=== PATIENT | female | born 1985 | race Asian ===

== ENCOUNTER 2020-07-06 08:41 | Outpatient (REF) | payer OTHER, SELFPAY ==
[2020-07-07 10:19] LABS: CT PCR NOT DETECTED (Not Detect.); NG PCR NOT DETECTED (Not Detect.)
[2020-07-07 13:49] LABS: BV Int Neg Control Negative (Negative); BV Int Pos Control Positive (Positive)
[2020-07-08 22:56] LABS: HPV mRNA E6/E7 rflx Not Detected (Not Detected)
== END 2020-07-06 08:42 | disposition home or self-care (01) ==
LOC: HO.LAB 08:41
PROVIDERS: Visit Provider Advanced Practice Midwife
DX: Z01.419 Encounter for gynecological examination (general) (routine) without abnormal findings (principal); R10.2 Pelvic and perineal pain; N93.9 Abnormal uterine and vaginal bleeding, unspecified; N76.0 Acute vaginitis; B96.89 Other specified bacterial agents as the cause of diseases classified elsewhere; Z11.8 Encounter for screening for other infectious and parasitic diseases; Z11.3 Encounter for screening for infections with a predominantly sexual mode of transmission
CPT/HCPCS: 87480; 87491; 87510; 87591; 87624; 87625; 87660; 88142

== ENCOUNTER 2020-08-19 16:30 | Outpatient (REF) | payer OTHER, SELFPAY | END 2020-08-19 16:31 | disposition home or self-care (01) | LOC: HO.LAB 16:30 | PROVIDERS: Visit Provider Internal Medicine | DX: Z20.828 Contact with and (suspected) exposure to other viral communicable diseases (principal) | CPT/HCPCS: C9803; U0003 ==

== ENCOUNTER 2020-09-28 08:49 | Outpatient (REF) | payer OTHER, SELFPAY ==
[2020-09-30 01:18] LABS: C. trachomatis RNA TMA NOT DETECTED (NOT DETECTED); N. gonorrhoeae RNA TMA NOT DETECTED (NOT DETECTED)
[2020-10-01 01:47] LABS: HPV mRNA E6/E7 rflx Not Detected (Not Detected)
== END 2020-09-28 08:50 | disposition home or self-care (01) ==
LOC: HO.LAB 08:49
PROVIDERS: Visit Provider Obstetrics & Gynecology
DX: Z01.419 Encounter for gynecological examination (general) (routine) without abnormal findings (principal); N63.0 Unspecified lump in unspecified breast; R10.2 Pelvic and perineal pain; Z30.09 Encounter for other general counseling and advice on contraception
CPT/HCPCS: 36415; 87491; 87591; 87624; 88142

== ENCOUNTER 2020-10-05 11:06 | Outpatient (REF) | payer OTHER, SELFPAY ==
--- NOTE | ~2020-10-05 | MM_ITS ---
EXAMINATION: MM DIAGNOSTIC DIGITAL BREAST TOMOSYNTHESIS, BILATERAL US DIAGNOSTIC ULTRASOUND BREAST, RIGHT CLINICAL INFORMATION: 34-year-old with palpable nodule right breast upper outer quadrant mid depth. No known family history breast cancer. No prior breast imaging. The lifetime risk of breast cancer based on the Tyrer-Cuzick Model is 8%. COMPARISON: None (current study represents initial baseline exam). TECHNIQUE: Digital breast tomosynthesis is performed in both the craniocaudal and mediolateral oblique views along with computer-aided detection (CAD). Synthesized 2D images are generated from the tomosynthesis. Ultrasound right breast is targeted to the area of clinical concern upper outer quadrant. Grayscale imaging and color Doppler are performed without and with harmonics. Patient is able to point to the area of concern at time of imaging. FINDINGS: There are scattered areas of fibroglandular density (ACR BI-RADS breast composition Category b). Breast tissue composition borders on heterogeneously dense. The left breast shows no mass or architectural abnormality. Neither breast shows abnormal calcifications. The axilla and skin contours are unremarkable. The right MLO tomography demonstrates a circumscribed nodule mid upper outer quadrant 1.0 cm size close to area of palpable concern. Ultrasound right breast demonstrates a group of 3 adjacent simple cysts 10:00 position 5 cm from nipple, largest 0.9 x 0.6 cm. The adjacent cysts measure 0.7 x 0.4 cm and 0.4 x 0.3 cm, respectively. There is increased through-transmission of sound. No associated color flow. No solid mass or architectural abnormality. Results are discussed with the patient at time of visit. MM/MM tomosynthesis diagnostic BI IMPRESSION: 1. No mammographic evidence of malignancy. 2. Group of three simple cysts right breast at area of palpable concern, largest 0.9 cm. ASSESSMENT: BI-RADS 2: Benign RECOMMENDATION: Routine annual mammography screening, beginning age 40, or earlier as clinical risk factors warrant. This patient's information was entered into a reminder system with a target due date for their next mammogram.
== END 2020-10-05 11:07 | disposition home or self-care (01) ==
LOC: HO.MAMMO 11:06
PROVIDERS: Visit Provider Obstetrics & Gynecology
DX: N63.11 Unspecified lump in the right breast, upper outer quadrant (principal)
CPT/HCPCS: 76642; 77062; 77066

== ENCOUNTER 2020-10-30 01:47 | Emergency (ER) | payer OTHER, SELFPAY ==
[2020-10-30 02:29] VITALS: BP 105/71; PULSE 78; RESP 16; TEMP 37.1; O2SAT 98; BMI 29.2
--- NOTE | 2020-10-30 02:47 | ED.GENADULT ---
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 She states she gets relief after using Vicks vapor rub. complaint: Bilateral buttock pain Related Data Previous Rx's Medication Instructions Recorded clonazepam 1 mg tablet 1 mg PO DAILY PRN 30 Days #30 tab 10/19/20 tramadol 50 mg tablet 50 mg PO BID PRN 30 Days #60 tab 10/26/20 Allergies Allergy/AdvReac Type Severity Reaction Status Date / Time codeine [CODEINE] Allergy Intermediate TACHYCARDIA Verified 09/28/20 09:00 acetaminophen Allergy Unknown tachycardia Verified 09/28/20 09:00 [Tylenol-Codeine #3] Review of Systems Review of Systems: Pertinent positives and negatives as stated in HPI 10 point review of systems is otherwise negative. [facility] Past Medical History Source: nursing notes reviewed Medical History History of asthma History of depression History of panic attacks Hx of anxiety disorder Surgical History Hx of section Family History Family History Maternal Aunt History of breast cancer Sister Stomach cancer Father No problems noted. Mother No problems noted. Family/Other FH: mental illness Social History Social History Alcohol intake: never Smoking Status: Never smoker Use of substances other than those prescribed or required for medical reasons: No Advance Directives: No Physical Exam Vital Signs: Vital Signs: Last Vital Signs Temp 98.7 F 10/30/20 02:29 Pulse 78 10/30/20 02:29 Resp 16 10/30/20 02:29 BP 105/71 10/30/20 02:29 Pulse Ox 98 10/30/20 02:29 Body Mass Index 29.2 VITAL SIGNS: Reviewed. GENERAL: Well developed, well nourished, in no acute distress. NOSE: Nares patent bilateral OROPHARYNX: no oral lesions noted, posterior pharynx clear NECK: Supple, no adenopathy LUNGS: Normal breath sounds. No adventitious sounds or accessory muscle use. SpO2<98> CARDIOVASCULAR: Regular rate and rhythm without noted murmurs ABDOMEN: Soft, non-tender, non-distended with bowel sounds. BUTTOCKS: {optical glass etcher-Sally} there is no evidence of swelling, induration, erythema, skin lesions NEUROLOGIC: Alert and oriented x 4. Course Course Course Narrative: This is a 34-year-old female with history and clinical presentation of unclear etiology, as patient has not been evaluated by her primary care provider in the past year for this presentation either. Low clinical suspicion for abscess, cellulitis, pilonidal cyst, sciatica. Will obtain basic labs and UA. On review of all investigations there are no acute finding. All results were discussed with patient at bedside and she was strongly encouraged to follow-up with her primary care provider for further outpatient evaluation. Medical Decision Making Lab Data Result diagrams: 10/30/20 03:13 10/30/20 03:13 Labs: Lab Results 10/30/20 10/30/20 10/30/20 Range/Units 03:13 03:13 03:13 WBC 5.6 (4.8-10.8) X10*3/uL RBC 4.21 (4.20-5.50) X10*6/uL Hgb 11.0 L (12.0-16.0) g/dl Hct 34.5 L (37-47) % MCV 81.9 (80-98) fL MCH 26.1 L (27.0-33.0) pg MCHC 31.9 (31.0-35.0) g/dl RDW 13.3 (11.0-16.0) % Plt Count 215 (160-400) X10*3/uL MPV 10.6 (9.4-12.3) fL Immature Gran % (Auto) 0.2 (0.0-0.4) % Neut % (Auto) 48.0 (45-73) % Lymph % (Auto) 40.5 H (20-40) % Dade % (Auto) 7.3 (2-11) % Eos % (Auto) 3.6 (0-4) % Baso % (Auto) 0.4 (0-2) % Lymph # (Auto) 2.3 (1.2-4.9) X10*3/uL Dade # (Auto) 0.4 (0.1-1.2) X10*3/uL Eos # (Auto) 0.2 (0.0-0.4) X10*3/uL Baso # (Auto) 0.0 (0.0-0.2) X10*3/uL Abs Immat Gran (auto) 0.01 (0.00-0.03) X10*3/uL Absolute Neuts (auto) 2.7 (2.0-8.3) X10*3/uL Absolute Nucleated RBC 0.000 (0.0-0.012) X10*3/uL Nucleated RBC % (auto) 0.0 (0.0-0.2) /100WBC Sodium 139 (135-145) mmol/L Potassium 3.9 (3.3-5.1) mmol/L Chloride 105 (96-108) mmol/L Carbon Dioxide 28 (22-29) mmol/L Anion Gap 10 L (12-20) BUN 11 (9-16) mg/dL Creatinine 0.65 (0.5-1.4) mg/dL Estim Creat Clear Calc 108.3 Estimated GFR > 60 Random Glucose 92 (60-115) mg/dL Calcium 8.8 (8.4-10.2) mg/dL Total Bilirubin 0.4 (0.0-1.0) mg/dL AST 13 (5-31) U/L ALT 7 (0-31) U/L Alkaline Phosphatase 74 (39-117) U/L Total Protein 6.5 (6.5-8.0) g/dL Albumin 4.0 (3.5-5.0) g/dL Urine Color YELLOW Urine Appearance CLEAR Urine pH 7.0 (5.0-8.0) Ur Specific [place] 1.020 (1.005-1.025) Urine Protein NEG (NEG-TRACE) MG/DL Urine Glucose (UA) NEG (NEG) MG/DL Urine Ketones NEG (NEG) MG/DL Urine Blood TRACE (NEG) Urine Nitrite NEG (NEG) Ur Leukocyte Esterase NEG (NEG) Urine RBC 0-2 (0) /HPF Urine WBC 0-2 (0-4) /HPF Ur Squamous Epith Cells 1+ /LPF Urine Bacteria TRACE /LPF Urine Mucus 1+ /LPF Urine Yeast TRACE /HPF Urine Test (NEGATIVE) 10/30/20 Range/Units 03:13 WBC (4.8-10.8) X10*3/uL RBC (4.20-5.50) X10*6/uL Hgb (12.0-16.0) g/dl Hct (37-47) % MCV (80-98) fL MCH (27.0-33.0) pg MCHC (31.0-35.0) g/dl RDW (11.0-16.0) % Plt Count (160-400) X10*3/uL MPV (9.4-12.3) fL Immature Gran % (Auto) (0.0-0.4) % Neut % (Auto) (45-73) % Lymph % (Auto) (20-40) % D[place] % (Auto) (2-11) % Eos % (Auto) (0-4) % Baso % (Auto) (0-2) % Lymph # (Auto) (1.2-4.9) X10*3/uL Dade # (Auto) (0.1-1.2) X10*3/uL Eos # (Auto) (0.0-0.4) X10*3/uL Baso # (Auto) (0.0-0.2) X10*3/uL Abs Immat Gran (auto) (0.00-0.03) X10*3/uL Absolute Neuts (auto) (2.0-8.3) X10*3/uL Absolute Nucleated RBC (0.0-0.012) X10*3/uL Nucleated RBC % (auto) (0.0-0.2) /100WBC Sodium (135-145) mmol/L Potassium (3.3-5.1) mmol/L Chloride (96-108) mmol/L Carbon Dioxide (22-29) mmol/L Anion Gap (12-20) BUN (9-16) mg/dL Creatinine (0.5-1.4) mg/dL Estim Creat Clear Calc Estimated GFR Random Glucose (60-115) mg/dL Calcium (8.4-10.2) mg/dL Total Bilirubin (0.0-1.0) mg/dL AST (5-31) U/L ALT (0-31) U/L Alkaline Phosphatase (39-117) U/L Total Protein (6.5-8.0) g/dL Albumin (3.5-5.0) g/dL Urine Color Urine Appearance Urine pH (5.0-8.0) Ur Specific [place] (1.005-1.025) Urine Protein (NEG-TRACE) MG/DL Urine Glucose (UA) (NEG) MG/DL Urine Ketones (NEG) MG/DL Urine Blood (NEG) Urine Nitrite (NEG) Ur Leukocyte Esterase (NEG) Urine RBC (0) /HPF Urine WBC (0-4) /HPF Ur Squamous Epith Cells /LPF Urine Bacteria /LPF Urine Mucus /LPF Urine Yeast /HPF Urine Test NEGATIVE (NEGATIVE) Discharge Plan Discharge Clinical Impression: Chronic gluteal pain Patient Disposition: Home, Self-Care Instructions: Musculoskeletal Pain (ED) Additional Instructions: 1. Resuma todos los medicamentos caseros seg?n lo prescrito. 2. Utilice Tylenol / ibuprofeno de venta reilly seg?n sea necesario para controlar el dolor y irina se indica en el empaque exterior. 3. Gregoria un seguimiento con mena proveedor de atenci?n primaria para anthony reevaluaci?n y un tratamiento ambulatorio adicional de joel s?ntomas. No dude en volver al servicio de urgencias si experimenta un empeoramiento malvin de joel s?ntomas, especialmente si est? asociado con fiebre o escalofr?os. Prescriptions: No Action clonazepam 1 mg tablet 1 mg PO DAILY PRN (Reason: anxiety) 30 Days Qty: 30 RF: 0 tramadol 50 mg tablet 50 mg PO BID PRN (Reason: pain) 30 Days Qty: 60 RF: 0 Referrals: Sara Stover MD [Primary Care Provider] - 2 days (Re-evaluation outpatient management for chronic bilateral gluteal pain for 1 year and basic labs/urinalysis are negative in the emergency department.) Print Language: Turkish
[2020-10-30 03:21] LABS: MANUAL DIFF FLAG NO
[2020-10-30 03:22] LABS: Basophils Percent Auto 0.4 % (0-2); Eosinophils Absolute Auto 0.2 X10*3/uL (0.0-0.4); Eosinophils Percent Auto 3.6 % (0-4); Hematocrit 34.5 % (37-47); Imm Gran Abs Auto 0.01 X10*3/uL (0.00-0.03); Imm Gran Pct Auto 0.2 % (0.0-0.4); Lymphocytes Absolute Auto 2.3 X10*3/uL (1.2-4.9); Lymphocytes Percent Auto 40.5 % (20-40); Mean Corpuscular HGB Conc 31.9 g/dl (31.0-35.0); Mean Corpuscular Hemoglobin 26.1 pg (27.0-33.0); Mean Corpuscular Volume 81.9 fL (80-98); Mean Platelet Volume 10.6 fL (9.4-12.3); Monocytes Absolute Auto 0.4 X10*3/uL (0.1-1.2); Monocytes Percent Auto 7.3 % (2-11); Neutrophils Absolute Auto 2.7 X10*3/uL (2.0-8.3); Platelet Count 215 X10*3/uL (160-400); Red Blood Count 4.21 X10*6/uL (4.20-5.50); Red Cell Distribution Width 13.3 % (11.0-16.0); White Blood Count 5.6 X10*3/uL (4.8-10.8)
[2020-10-30 03:26] LABS: Glucose Urine UA NEG (NEG); Leukocyte Esterase Urine NEG (NEG); Nitrite Urine NEG (NEG); Urine Blood TRACE (NEG); Urine Ketones NEG (NEG); Urine Protein NEG (NEG-TRACE)
[2020-10-30 03:27] LABS: Appearance Urine CLEAR; Color Urine YELLOW
[2020-10-30 03:28] LABS: UPreg QC Valid YES; Urine Pregnancy NEGATIVE (NEGATIVE)
--- NOTE | 2020-10-30 03:40 | PC.NURSE ---
PT ASSESSED BY DR MATTHEW. PLAN IS FOR LABS/URINE AND DC IF RESULTS WNL. PT AGREEABLE TO PLAN.
[2020-10-30 03:41] LABS: Bacteria Urine TRACE /LPF; Mucus Urine 1+ /LPF; RBC Urine 0-2 /HPF (0); Squamous Epithelial Cell Urine 1+ /LPF; WBC Urine 0-2 /HPF (0-4)
[2020-10-30 03:48] LABS: Alanine Aminotransferase 7 U/L (0-31); Alkaline Phosphatase 74 U/L (39-117); Anion Gap 10 (12-20); Aspartate Amino Transferase 13 U/L (5-31); Bilirubin Total 0.4 mg/dL (0.0-1.0); Blood Urea Nitrogen 11 mg/dL (9-16); Calcium 8.8 mg/dL (8.4-10.2); Carbon Dioxide 28 mmol/L (22-29); Chloride 105 mmol/L (96-108); Creatinine Clr Calc Pharmacy 108.3; Estimated Glomerular Filt Rate > 60; Glucose Random 92 mg/dL (60-115); Potassium 3.9 mmol/L (3.3-5.1); Sodium 139 mmol/L (135-145); Total Protein 6.5 g/dL (6.5-8.0)
[2020-10-30 04:00] VITALS: BP 130/68; PULSE 72; RESP 16; O2SAT 98
== END 2020-10-30 04:36 | disposition home or self-care (01) ==
PROVIDERS: Emergency Provider Student in an Organized Health Care Education/Training Program; PCP Internal Medicine
DX: M79.18 Myalgia, other site (principal)
CPT/HCPCS: 36415; 80053; 81001; 81025; 85025; 99283; 99284

== ENCOUNTER 2021-06-16 18:25 | Outpatient (REF) | payer OTHER, SELFPAY ==
[2021-06-16 18:50] LABS: Amphetamine Screen Urine Not Detected (Not Detect); Barbiturates, Urine Not Detected (Not Detect); Benzodiazepines Screen Urine POSITIVE (Not Detect); Cannabinoid Screen Urine Not Detected (Not Detect); Cocaine Screen Urine Not Detected (Not Detect); Fentanyl, urine Not Detected (Not Detect); Opiate Screen Urine Not Detected (Not Detect); Phencyclidine Screen Urine Not Detected (Not Detect)
== END 2021-06-16 18:26 | disposition home or self-care (01) ==
LOC: HO.LNP 18:25
PROVIDERS: Visit Provider Internal Medicine
DX: F41.9 Anxiety disorder, unspecified (principal); R19.05 Periumbilic swelling, mass or lump; Z23 Encounter for immunization
CPT/HCPCS: 80307

== ENCOUNTER 2021-07-21 14:41 | Outpatient (REF) | payer OTHER, SELFPAY ==
--- NOTE | ~2021-07-21 | US_ITS ---
EXAMINATION: US ABDOMEN LIMITED CLINICAL INFORMATION: Periumbilical swelling, mass or lump. COMPARISON: CT abdomen with intravenous contrast dated 01/31/2019. Renals only ultrasound dated 01/31/2018. Ultrasound abdomen complete dated 12/27/2016. TECHNIQUE: Real-time imaging of the periumbilical area. FINDINGS: Limited imaging through the periumbilical area reveals no mass, hernia, fluid collection or abnormal mass effect. US/US abdomen limited IMPRESSION: Unremarkable ultrasound abdomen limited. No abnormality seen in the periumbilical region.
== END 2021-07-21 14:42 | disposition home or self-care (01) ==
LOC: HO.US 14:41
PROVIDERS: PCP Internal Medicine; Visit Provider Internal Medicine
DX: R19.05 Periumbilic swelling, mass or lump (principal)
CPT/HCPCS: 76705

== ENCOUNTER 2021-07-26 08:41 | Outpatient (REF) | payer OTHER, SELFPAY ==
[2021-07-26 14:16] LABS: CT PCR NOT DETECTED (Not Detect.); NG PCR NOT DETECTED (Not Detect.)
[2021-07-27 10:28] LABS: BV Int Neg Control Negative (Negative); BV Int Pos Control Positive (Positive)
== END 2021-07-26 08:42 | disposition home or self-care (01) ==
LOC: HO.LAB 08:41
PROVIDERS: PCP Internal Medicine; Visit Provider Obstetrics & Gynecology
DX: Z11.3 Encounter for screening for infections with a predominantly sexual mode of transmission (principal); N76.0 Acute vaginitis
CPT/HCPCS: 87480; 87491; 87510; 87591; 87660; 99212

== ENCOUNTER 2021-09-25 02:43 | Emergency (ER) | payer OTHER, SELFPAY ==
[2021-09-25 02:46] VITALS: BP 113/75; PULSE 73; RESP 16; TEMP 36.6; O2SAT 99; BMI 34.0
[2021-09-25 04:11] VITALS: BP 97/49; PULSE 72; RESP 16; TEMP 36.6; O2SAT 98
[2021-09-25 05:08] LABS: COVID-19 Test Negative (Negative); IDNOW Serial# 9DD0AD1C
[2021-09-25] MEDS: Amoxicillin 500 MG CAPSULE 1000 MG PO (06:41)
[2021-09-25] MEDS: predniSONE 20 MG TABLET 60 MG PO (06:41)
--- NOTE | 2021-09-25 06:46 | ED_ITS ---
HPI - General Adult General Chief complaint: General Medical Stated complaint: sore throat diff breathing Time Seen by Provider: 09/25/21 05:50 Source: patient and family () Mode of arrival: ambulatory Limitations: language barrier (Dominican speaking only) History of Present Illness HPI narrative: 35-year-old female who presents emergency department for evaluation of chest pain, sore throat, cough x4 days. The patient states that she has a sore throat, the pain is a constant, sharp pain which is worse with swallowing, she can not swallow fluids, food and her secretions. He states the pain is moderate to severe in intensity. She states that she also has a cough which is occasionally productive of yellow phlegm. She states that she is having chest pain which is worse with coughing worse with breathing. She has mild shortness of breath and mild dyspnea on exertion. She denied fever, chills, nausea. She states that occasionally she vomits after coughing. Patient states that she is had a COVID infection twice. Her 1st infection was in November of 2020 under 2nd 1 was 08/16/2021. She has not been vaccinated for COVID-19. Related Data Previous Rx's Medication Instructions Recorded cyclobenzaprine 10 mg tablet 10 mg PO BEDTIME PRN 30 Days #30 11/04/20 tab metronidazole 500 mg tablet 500 mg PO BID 7 Days #14 tab 07/26/21 terconazole 0.8 % vaginal cream 1 appful VAGINAL BEDTIME 3 Days 07/26/21 #20 g clonazepam 1 mg tablet 1 mg PO DAILY PRN 30 Days #30 tab 08/30/21 tramadol 50 mg tablet 50 mg PO BID PRN 30 Days #60 tab 08/30/21 albuterol sulfate 90 mcg/actuation 2 puff INHALATION Q4-6H PRN #6.7 09/25/21 g aerosol inhaler (ProAir HFA) amoxicillin 500 mg capsule 1,000 mg PO BID 10 Days #40 cap 09/25/21 prednisone 20 mg tablet 60 mg PO DAILY 5 Days #15 tab 09/25/21 Allergies Allergy/AdvReac Type Severity Reaction Status Date / Time acetaminophen Allergy Intermediate tachycardia Verified 06/16/21 16:27 [Tylenol-Codeine #3] codeine [CODEINE] Allergy Intermediate TACHYCARDIA Verified 06/16/21 16:27 Review of Systems Dedrick 4l Review of Systems: Yes all other systems are reviewed and Verdana 4d are negative [facility] Past Medical History Medical History Anxiety COVID-19 History of asthma History of depression History of panic attacks Hx of anxiety disorder Mild recurrent major depression Periumbilical mass Polyarthralgia Surgical History Hx of section Family History Family History Maternal Aunt History of breast cancer Sister Stomach cancer Father No problems noted. Mother No problems noted. Family/Other FH: mental illness Social History Social History Housing: Apartment Alcohol intake: current Alcohol intake frequency: a few times a week Alcohol type: beer Patient Tobacco Use Status: Former Tobacco user Tobacco use type: Cigarette e-Cigarette/Vaping Use: Never Used Second Hand Smoke Exposure: No Advance Directives: No Advance Directives Information Provided: Yes Patient : No service: No Current occupational status: employed Current occupational exposures/hazards: No Physical Exam Verdana 4l Vital Signs: Verdana 4d Verdana 4d Vital Signs: Verdana 4d Verdana 4Bd Last Vital Signs Verdana 4d Dominatrix New 4d Dominatrix New 4d Temp 97.9 F 09/25/21 04:11 Dominatrix New 4d Pulse 72 09/25/21 04:11 Dominatrix New 4d Resp 16 09/25/21 04:11 BP 97/49 L 09/25/21 04:11 Pulse Ox 98 09/25/21 04:11 BMI result Body Mass Index 34.0 Const: General: cooperative and no acute distress Orientation/consciousness: oriented to person and oriented to place Limitations: no limitations HENMT: Head: Yes normal to inspection, Yes normocephalic and Yes atraumatic Ears: external ears normal General nose exam: Normal external nose present Face and sinus: Yes normal facial exam Mouth: Normal oral and palatal mucosa present Throat: Yes tonsils normal, Yes uvula midline and Yes other (Posterior exudate with erythema) Eyes: General: appearance normal, both eyes and all related structures Pupils: Equal, round and reactive pupils present Neck: Neck: Yes normal visual inspection, Yes no lymphadenopathy, Yes trachea midline and Yes supple Chest: Chest palpation & inspection: normal inspection of the chest and normal palpation of entire chest wall Resp: Effort & Inspection: normal respiratory effort and able to speak in complete sentences Auscultation: clear to auscultation bilaterally Cardio: Rate: regular rate Rhythm: regular rhythm Heart sounds: S1 normal heart sound present, S2 normal heart sound present and no murmurs GI: Inspection: Yes normal to inspection Palpation (GI): Soft to palpation, nontender and no guarding Auscultation: normal bowel sounds : General: Yes no CVA tenderness Back/Spine/Pelvis: Back: no CVA tenderness Skin: General skin exam: no rashes or lesions noted Neuro: General: oriented to person and oriented to place Cranial nerves: Yes CN's II-XII intact bilaterally and Yes Equal, round and reactive pupils present Cognition (Neuro): normal cognition Motor exam (neuro): 5/5 motor strength present throughout Extrem: General: Yes normal to inspection Psych: Appearance: grossly normal Speech and movement: Normal speech and movement present Affect: normal affect Attitude: cooperative Thought process: Normal thought process present Thought content: Normal thought content present Course Course Course Narrative: 35-year-old female who presents emergency department for evaluation of 4 days of cough, sore throat, chest pain, mild dyspnea on exertion and shortness of breath. Initial vital signs were normal. Physical examination did reveal posterior exudates and erythema . My impression is the patient has acute pharyngitis with bronchitis. She was started on amoxicillin 1000 mg twice a day for 10 days, prednisone 60 mg once a day for 5 days and albuterol inhaler 2 puffs every 4 hours as needed for pain. She was given printed and verbal instructions and discharged home. Medical Decision Making Lab Data Labs: Lab Results 09/25/21 Range/Units Unknown COVID-19 (BRYN) Negative (Negative) COVID-19 Clin Com See Note Discharge Plan Discharge Clinical Impression: Bronchitis Pharyngitis Qualifiers: Pharyngitis/tonsillitis etiology: other specified organisms Qualified Code(s): J02.8 - Acute pharyngitis due to other specified organisms Patient Disposition: Home, Self-Care Instructions: Pharyngitis (ED), Acute Bronchitis (ED) Additional Instructions: Take amoxicillin 1000 mg twice a day for 10 days. This would treat bronchitis and a throat infection Take prednisone 20 mg pills, 3 pills once a day for 5 days. This is a strong anti-inflammatory pain medication and should reduce the inflammation in your breathing tubes and help with your chest pain and throat pain. While taking prednisone do not take any other [id number] anti-inflammatory medications such as Motrin, Advil, ibuprofen, naproxen orally. Take Tylenol (acetaminophen) 500 mg pills, 2 pills every 4 to 6 hours as needed for pain. Use the albuterol inhaler, 2 puffs every 4 hours while awake for 1 week, that should help reduce your cough your chest pain Follow-up with your doctor in 2 days. Please return to the emergency department if your symptoms get worse or if you develop any symptoms that are concerning to you. Prescriptions: New amoxicillin 500 mg capsule 1,000 mg PO BID 10 Days Qty: 40 0RF prednisone 20 mg tablet 60 mg PO DAILY 5 Days Qty: 15 0RF albuterol sulfate [ProAir HFA] 90 mcg/actuation HFA aerosol inhaler 2 puff inhalation Q4-6H PRN (Reason: shortness of breath or wheezing) Qty: 6.7 0RF No Action clonazepam 1 mg tablet 1 mg PO DAILY PRN (Reason: anxiety) 30 Days Qty: 30 0RF tramadol 50 mg tablet 50 mg PO BID PRN (Reason: pain) 30 Days Qty: 60 0RF cyclobenzaprine 10 mg tablet 10 mg PO BEDTIME PRN (Reason: muscle spasm) 30 Days Qty: 30 3RF terconazole 0.8 % cream 1 appful vaginal BEDTIME 3 Days Qty: 20 0RF metronidazole 500 mg tablet 500 mg PO BID 7 Days Qty: 14 0RF Interventions: ED Discharge Assessment Last Done: 09/25/21 06:42 Discharge Date/Time: 09/25/21 06:42
== END 2021-09-25 06:42 | disposition home or self-care (01) ==
PROVIDERS: Emergency Provider Emergency Medicine Emergency Medical Services; PCP Internal Medicine
DX: J40 Bronchitis, not specified as acute or chronic (principal); J02.8 Acute pharyngitis due to other specified organisms; Z20.822 Contact with and (suspected) exposure to COVID-19
CPT/HCPCS: 87635; 99283

== ENCOUNTER 2022-05-12 11:41 | Outpatient (REF) | payer OTHER, SELFPAY ==
--- NOTE | ~2022-05-12 | XR_ITS ---
EXAMINATION: XR ABDOMEN KUB CLINICAL INDICATION: Back pain COMPARISON: None TECHNIQUE: AP view of the abdomen. FINDINGS: The bowel gas pattern is normal. There is no free air. No calcifications. There is mild curvature of the lower lumbar spine to the left. Bony structures are otherwise unremarkable. XR/XR KUB IMPRESSION: Unremarkable examination.
[2022-05-12 12:18] LABS: MANUAL DIFF FLAG NO
[2022-05-12 12:55] LABS: Basophils Percent Auto 0.2 % (0-2); Eosinophils Absolute Auto 0.2 X10*3/uL (0.0-0.4); Eosinophils Percent Auto 4.7 % (0-4); Hemoglobin 12.1 g/dl (12.0-16.0); Imm Gran Abs Auto 0.01 X10*3/uL (0.00-0.03); Imm Gran Pct Auto 0.2 % (0.0-0.4); Lymphocytes Absolute Auto 1.8 X10*3/uL (1.2-4.9); Lymphocytes Percent Auto 34.2 % (20-40); Mean Corpuscular HGB Conc 31.8 g/dl (31.0-35.0); Mean Corpuscular Hemoglobin 26.1 pg (27.0-33.0); Mean Corpuscular Volume 81.9 fL (80.0-98.0); Mean Platelet Volume 10.5 fL (9.4-12.3); Monocytes Absolute Auto 0.3 X10*3/uL (0.1-1.2); Monocytes Percent Auto 5.6 % (2-11); Neutrophils Absolute Auto 2.8 x10*3/uL (2.0-8.3); Neutrophils Percent Auto 55.1 % (45-73); Platelet Count 253 X10*3/uL (160-400); Red Blood Count 4.64 X10*6/uL (4.20-5.50); Red Cell Distribution Width 13.6 % (11.0-16.0); White Blood Count 5.1 X10*3/uL (4.8-10.8)
[2022-05-12 13:20] LABS: Alanine Aminotransferase 9 U/L (0-31); Albumin Level 4.2 g/dL (3.5-5.0); Alkaline Phosphatase 68 U/L (39-117); Anion Gap 15 (12-20); Aspartate Amino Transferase 15 U/L (5-31); Bilirubin Total 0.8 mg/dL (0.0-1.0); Blood Urea Nitrogen 11 mg/dL (9-16); Calcium 9.3 mg/dL (8.4-10.2); Carbon Dioxide 22 mmol/L (22-29); Chloride 107 mmol/L (96-108); Estimated Glomerular Filt Rate > 60; Glucose Random 84 mg/dL (60-115); Potassium 3.9 mmol/L (3.3-5.1); Sodium 140 mmol/L (135-145)
== END 2022-05-12 11:42 | disposition home or self-care (01) ==
LOC: HO.LAB 11:41
PROVIDERS: PCP Internal Medicine; Visit Provider Internal Medicine
DX: M25.50 Pain in unspecified joint (principal); M54.9 Dorsalgia, unspecified
CPT/HCPCS: 36415; 74018; 80053; 85025

== ENCOUNTER 2022-06-13 15:43 | Outpatient (REF) | payer OTHER, SELFPAY ==
[2022-06-14 05:26] LABS: CT PCR NOT DETECTED (Not Detect.); NG PCR NOT DETECTED (Not Detect.)
[2022-06-14 12:25] LABS: BV Int Neg Control Negative (Negative); BV Int Pos Control Positive (Positive)
== END 2022-06-13 15:44 | disposition home or self-care (01) ==
LOC: HO.LNP 15:43
PROVIDERS: Visit Provider Obstetrics & Gynecology
DX: Z01.419 Encounter for gynecological examination (general) (routine) without abnormal findings (principal)
CPT/HCPCS: 87086; 87480; 87491; 87510; 87591; 87660

== ENCOUNTER 2022-06-21 13:40 | Outpatient (REF) | payer OTHER, SELFPAY ==
--- NOTE | ~2022-06-21 | US_ITS ---
EXAMINATION: MM DIAGNOSTIC DIGITAL BREAST TOMOSYNTHESIS, BILATERAL US DIAGNOSTIC ULTRASOUND BREAST, RIGHT CLINICAL INFORMATION: Palpable concern upper outer right breast noted at routine clinical exam. Prior history fibrocystic changes. No known family history breast cancer. Patient age 36. The lifetime risk of breast cancer based on the Tyrer-Cuzick Model is 8%. COMPARISON: Mammography: 10/05/2020 (baseline), ultrasound right breast 10/05/2020. TECHNIQUE: Digital breast tomosynthesis is performed in both the craniocaudal and mediolateral oblique views along with computer-aided detection (CAD). Synthesized 2D images are generated from the tomosynthesis. Ultrasound right breast is targeted to the outer quadrant as well as the upper inner quadrant using grayscale imaging and color Doppler without and with harmonics. FINDINGS: The breasts are heterogeneously dense, which may obscure small masses (ACR BI-RADS breast composition Category c). Breast tissue composition borders on average fibroglandular. Parenchymal pattern is similar to prior exam. There is no interval significant mass or architectural abnormality or developing density. Circumscribed nodule central upper breast on MLO view around 1 cm is stable on tomography. No abnormal calcifications. The axilla and skin contours are unremarkable. Ultrasound demonstrates numerous simple cysts, at least 10 small cysts in the outer right breast, largest measuring 0.9 cm. There is also a 0.8 cm cyst at 1:00 position anterior to mid breast. The cysts are circumscribed, anechoic, and show increased through-transmission of sound. No color flow. No solid mass or architectural abnormality or focal duct ectasia. Results are discussed with the patient at time of visit, using an hourly sign language interpreter. US/US breast RT limited IMPRESSION: 1. No mammographic evidence of malignancy. No significant change from prior baseline exam 2020. 2. Multiple simple cysts measuring up to 0.9 cm. ASSESSMENT: BI-RADS 2: Benign RECOMMENDATION: Routine annual mammography screening, beginning age 40, or earlier as clinical risk factors warrant. This patient's information was entered into a reminder system with a target due date for their next mammogram.
== END 2022-06-21 13:41 | disposition home or self-care (01) ==
LOC: HO.MAMMO 13:40
PROVIDERS: PCP Internal Medicine; Visit Provider Obstetrics & Gynecology
DX: N63.11 Unspecified lump in the right breast, upper outer quadrant (principal)
CPT/HCPCS: 76642; 77062; 77066

== ENCOUNTER → 2022-07-21 14:41 | Outpatient (BNVA) | payer OTHER, SELFPAY | PROVIDERS: PCP Internal Medicine; Referring Provider Internal Medicine; Visit Provider Surgery | DX: N60.11 Diffuse cystic mastopathy of right breast (principal) | CPT/HCPCS: 99202 ==

== ENCOUNTER 2022-09-08 16:01 | Emergency (ER) | payer OTHER, SELFPAY ==
--- NOTE | ~2022-09-08 | XR_ITS ---
EXAMINATION: XR CHEST CLINICAL INFORMATION: dizziness and shortness of breath COMPARISON: 09/11/2018 TECHNIQUE: 2 views of the chest were obtained. FINDINGS: No significant abnormality is noted involving the heart, lungs, mediastinum or bony. Some calcification may be present in the supraspinatus tendon on the right. XR/XR chest 2V IMPRESSION: No acute intrathoracic disease.
--- NOTE | ~2022-09-08 | CT_ITS ---
EXAMINATION: CT HEAD WITHOUT CONTRAST CLINICAL INFORMATION: Dizziness, headache COMPARISON: None TECHNIQUE: Contiguous axial imaging was performed from the skull base to vertex without intravenous administration of contrast. This CT examination was performed using dose optimization techniques as appropriate, variously including the following: *Automated exposure control *Adjustment of mA and/or kV according to patient size (this includes techniques or standardized protocols for targeted exams where dose is matched to indication/reason for exam; i.e. extremities or head) *Use of iterative reconstruction technique DLP: 588 mGy-cm FINDINGS: There is no evidence of acute intracranial hemorrhage or territorial infarction. No abnormal mass effect or midline shift is seen. [place] to white matter differentiation is well preserved. No extra-axial fluid collections are identified. The ventricles are normal in size. No abnormal attenuation in the brain parenchyma. No acute calvarial fracture.. Paranasal sinuses and mastoid air cells are well-aerated. CT/CT head/brain wo IV con IMPRESSION: No CT evidence of acute intracranial process.
--- NOTE | 2022-09-08 15:00 | ECG_ITS ---
Test Reason : CHEST PAIN Blood Pressure : / mmHG Vent. Rate : 066 BPM Atrial Rate : 066 BPM P-R Int : 152 ms QRS Dur : 092 ms QT Int : 390 ms P-R-T Axes : 057 043 034 degrees QTc Int : 408 ms Normal sinus rhythm Normal ECG When compared with ECG of 11-SEP-2018 04:54, No significant change was found Referred By: Sara Gonzalez Electronically Signed By:DANIELA LOPEZ MD
[2022-09-08 16:31] VITALS: BP 114/65; PULSE 70; RESP 16; TEMP 36; O2SAT 100; BMI 28.9
--- NOTE | 2022-09-08 16:32 | ED_ITS ---
HPI - General Adult General Chief complaint: Chest Pain <SEBAS Braden - Last Filed: 09/08/22 16:40> Stated complaint: Chest Pain/ Dizziness <SEBAS Braden - Last Filed: 09/08/22 16:40> Time Seen by Provider: 09/08/22 18:02 <SEBAS Braden - Last Filed: 09/08/22 16:40> Source: patient <Lui Day MD - Last Filed: 09/08/22 20:13> Limitations: language barrier ( Air Conditioning Mechanic used) <Lui Day MD - Last Filed: 20:13> History of Present Illness HPI narrative: 36-year-old female who complains that since , she has had pain in her chest, on both sides, with radiation to her left arm, some numbness in h er left arm, also feeling like her head is heavy when she tries to lift it off of the gurney. The patient denies any headache. She denies any visual changes. She does feel short of breath at times. She denies exertional chest pain. She denies any nausea or sweats. She denies abdominal pain. She has not had any pain or swelling in her extremities. She does take clonazepam typically twice daily for anxiety. She also has a history of depression, anxiety. <Lui Day MD - Last Filed: 09/08/22 20:13> Related Data Home medications: Previous Rx's Medication Instructions Recorded terconazole 0.8 % vaginal cream 1 appful vaginal BEDTIME 3 days 06/13/22 #20 grams bupropion HCl 150 mg 24 hr tablet, 150 mg PO QAM 90 days #90 tabs 08/12/22 extended release tramadol 50 mg tablet 50 mg PO BID PRN pain 30 days #60 08/12/22 tabs meclizine 25 mg tablet 25 mg PO BID PRN dizziness 7 days 08/23/22 #14 tabs clonazepam 1 mg tablet 1 mg PO BID PRN anxiety 30 days 08/29/22 #60 tabs baclofen 10 mg tablet 10 mg PO TID #20 tabs 09/08/22 clonazepam 1 mg tablet 1 mg PO TID #21 tabs 09/08/22 ibuprofen 600 mg tablet 600 mg PO Q6H PRN pain #30 tabs 09/08/22 <SEBAS Braden - Last Filed: 09/08/22 16:40> Allergies/adverse reactions: Allergies Allergy/AdvReac Type Severity Reaction Status Date / Time acetaminophen Allergy Intermediate tachycardia Verified 09/08/22 16:30 [Tylenol-Codeine #3] codeine [CODEINE] Allergy Intermediate TACHYCARDIA Verified 09/08/22 16:30 <SEBAS Braden - Last Filed: 09/08/22 16:40> Review of Systems Review of Systems: As per HPI <Lui Day MD - Last Filed: 09/08/22 20:13> [facility] Past Medical History Medical History: Medical History (Updated 09/08/22 @ 20:09 by Lui Day MD) Anxiety Blurry vision COVID-19 Family history of gastric cancer Fibrocystic breast History of asthma History of depression History of panic attacks Hx of anxiety disorder Mild recurrent major depression Periumbilical mass Physical exam Polyarthralgia <SEBAS Braden - Last Filed: 09/08/22 16:40> Surgical History: Surgical History Hx of section Periumbilical hernia <SEBAS Braden - Last Filed: 09/08/22 16:40> Family History Family History: Family History Maternal Aunt History of breast cancer Sister Stomach cancer, Onset Age: 34 Father No problems noted. Mother No problems noted. Family/Other FH: mental illness <SEBAS Braden - Last Filed: 09/08/22 16:40> Social History Social History: Social History Housing: Apartment Alcohol intake: current Alcohol intake frequency: holidays/special occasions only Alcohol type: beer Patient Tobacco Use Status: Former Tobacco user Tobacco use type: Cigarette Smoked in Last 30 Days: No e-Cigarette/Vaping Use: Never Used Second Hand Smoke Exposure: No Use of substances other than those prescribed or required for medical reasons: No Advance Directives: No Advance Directives Information Provided: No service: No Current occupational status: employed Current occupational exposures/hazards: No Cognitive needs: No Hearing needs: No Vision needs: No <SEBAS Braden - Last Filed: 09/08/22 16:40> Physical Exam ED Vital Signs: Vital Signs - 24 hr 09/08/22 16:31 09/08/22 18:03 09/08/22 20:00 Temperature 96.8 F 98.5 F 98.1 F Pulse Rate 70 59 67 Respiratory Rate 16 16 21 H Blood Pressure 114/65 110/64 115/73 Pulse Oximetry 100 100 98 Oxygen Delivery Method Room Air Room Air Room Air BMI result Body Mass Index 28.9 <SEBAS Braden - Last Filed: 09/08/22 16:40> Vital Signs - 24 hr 09/08/22 16:31 09/08/22 18:03 09/08/22 20:00 Temperature 96.8 F 98.5 F 98.1 F Pulse Rate 70 59 67 Respiratory Rate 16 16 21 H Blood Pressure 114/65 110/64 115/73 Pulse Oximetry 100 100 98 Oxygen Delivery Method Room Air Room Air Room Air BMI result Body Mass Index 28.9 <Lui Day MD - Last Filed: 09/08/22 20:13> Const General: no acute distress <Lui Day MD - Last Filed: 09/08/22 20:13> Orientation/consciousness: patient oriented x3 <Lui Day MD - Last Filed: 09/08/22 20:13> HENMT Head: Yes normal to inspection <Lui Day MD - Last Filed: 09/08/22 20:13> General nose exam: Normal external nose present <Lui Day MD - Last Filed: 09/08/22 20:13> Mouth: moist mucous membranes <Lui Day MD - Last Filed: 09/08/22 20:13> Throat: Yes posterior oropharynx normal, Yes tonsils normal and Yes uvula midline <Lui Day MD - Last Filed: 09/08/22 20:13> Eyes Eyelids: Yes eyelids normal <Lui Day MD - Last Filed: 09/08/22 20:13> Conjunctivae: conjunctivae normal <Lui Day MD - Last Filed: 09/08/22 20:13> Pupils: Equal, round and reactive pupils present <Lui Day MD - Last Filed: 09/08/22 20:13> Neck Neck: Yes supple <Lui Day MD - Last Filed: 09/08/22 20:13> Resp Effort & Inspection: normal respiratory effort <Lui Day MD - Last Filed: 09/08/22 20:13> Auscultation: clear to auscultation bilaterally <Lui Day MD - Last Filed: 09/08/22 20:13> Cardio Rate: regular rate <Lui Day MD - Last Filed: 09/08/22 20:13> Rhythm: regular rhythm <Lui Day MD - Last Filed: 09/08/22 20:13> Heart sounds: S1 normal heart sound present, S2 normal heart sound present, no gallops, no murmurs and no rubs <Lui Day MD - Last Filed: 09/08/22 20:13> GI Inspection: No distended <Lui Day MD - Last Filed: 09/08/22 20:13> Palpation (GI): Soft to palpation and nontender <Lui Day MD - Last Filed: 09/08/22 20:13> Auscultation: normal bowel sounds <Lui Day MD - Last Filed: 09/08/22 20:13> Skin General skin exam: other (Warm and dry) <Lui Day MD - Last Filed: 09/08/22 20:13> Neuro General: patient oriented x3 and CN's II-XI intact bilaterally <Lui Day MD - Last Filed: 09/08/22 20:13> Cranial nerves: Yes Equal, round and reactive pupils present <Lui Day MD - Last Filed: 09/08/22 20:13> Extrem General: Yes no pedal edema <Lui Day MD - Last Filed: 09/08/22 20:13> Psych Affect: normal affect <Lui Day MD - Last Filed: 09/08/22 20:13> Attitude: cooperative <Lui Day MD - Last Filed: 09/08/22 20:13> Course Course Course Narrative: RME-16:35pm Since Aug 14 pt reports she has been having SOB, CP, Headache and feeling like she is going to pass out and neck weakness and left arm weakness and bilateral leg weakness and this is concerning her. Reports it is constant and daily. Reports that she took Klonopin prior to arrival and it helped her symptoms mildly. Reports she has history of anxiety/panic attacks and the Klonopin use to help per although reports that the symptoms have been increasing and the Klonopin is not helping as much. She denies any other symptoms related to this. Patient has a normal steady gait. NIH SS score 0. Patient has non disabling symptoms. Normal motor strength equal bilaterally in all 4 extremities. Normal sensation. Normal cranial nerves. Lungs clear to auscultation CV RRR. No lower extremity edema or calf tenderness is noted. Plan: Will obtain labs, EKG, CT scan of brain and chest x-ray. Patient will be sent back to the waiting room to be evaluated in the ED. <SEBAS Braden - Last Filed: 09/08/22 16:40> RME-16:35pm Since Aug 14 pt reports she has been having SOB, CP, Headache and feeling like she is going to pass out and neck weakness and left arm weakness and bilateral leg weakness and this is concerning her. Reports it is constant and daily. Reports that she took Klonopin prior to arrival and it helped her symptoms mildly. Reports she has history of anxiety/panic attacks and the Klonopin use to help per although reports that the symptoms have been increasing and the Klonopin is not helping as much. She denies any other symptoms related to this. Patient has a normal steady gait. NIH SS score 0. Patient has non disabling symptoms. Normal motor strength equal bilaterally in all 4 extremities. Normal sensation. Normal cranial nerves. Lungs clear to auscultation CV RRR. No lower extremity edema or calf tenderness is noted. Plan: Will obtain labs, EKG, CT scan of brain and chest x-ray. Patient will be sent back to the waiting room to be evaluated in the ED. Patient seen in the presence of the manager book. Patient notes that her clonazepam only helped her for about 3 hours and then she begins to feel anxious and stressed again, especially at work. She notes she is also on another medicine for anxiety and depression which begins with a bee. She has spoken her primary care physician regarding her symptoms and was referred for therapy. Patient is advised that she may need to increase her dose of bupropion or change to a different antidepressant/antianxiety medicine. In the meantime I am recommending that she increase her clonazepam 1 mg 3 times a day. Patient describes symptoms of pain in back of her neck down into her chest. This is li gasper stress/ anxiety related. Cardiac workup here was negative, as was CT of the head which was done for left arm tingling. Will prescribe ibuprofen and baclofen to use for the time being to see if this helps with her symptoms, although I believe that anxiety and stress are the primary causes of her symptoms. <Lui Day MD - Last Filed: 09/08/22 20:13> Medications Administered Discontinued Medications Generic Name Dose Route Start Last Admin Trade Name Freq PRN Reason Stop Dose Admin Ketorolac Tromethamine 30 mg 09/08/22 18:13 09/08/22 18:29 Ketorolac Tromethamine 30 Mg/Ml Vial IM 09/08/22 18:14 30 mg ONCE ONE Administration Lorazepam 1 mg 09/08/22 18:13 09/08/22 18:28 Lorazepam 1 Mg Tablet PO 09/08/22 18:14 1 mg ONCE ONE Administration <SEBAS Braden - Last Filed: 09/08/22 16:40> Medications Administered Discontinued Medications Generic Name Dose Route Start Last Admin Trade Name Freq PRN Reason Stop Dose Admin Ketorolac Tromethamine 30 mg 09/08/22 18:13 09/08/22 18:29 Ketorolac Tromethamine 30 Mg/Ml Vial IM 09/08/22 18:14 30 mg ONCE ONE Administration Lorazepam 1 mg 09/08/22 18:13 09/08/22 18:28 Lorazepam 1 Mg Tablet PO 09/08/22 18:14 1 mg ONCE ONE Administration <Lui Day MD - Last Filed: 09/08/22 20:13> Medical Decision Making Differential Diagnosis Differential Diagnoses: The differential diagnosis associated with the presentation includes <Lui Day MD - Last Filed: 09/08/22 20:13> Anxiety, stress, pulmonary embolism, CVA, acute coronary syndrome <Lui Day MD - Last Filed: 09/08/22 20:13> Lab Data MDM Lab Attestation statement: I reviewed the patient's lab results. <Lui Day MD - Last Filed: 09/08/22 20:13> Result Diagrams: 09/08/22 18:23 09/08/22 18:23 <SEBAS Braden - Last Filed: 09/08/22 16:40> Labs: Lab Results 01/19/23 01/19/23 01/19/23 Range/Units 18:23 18:23 18:23 WBC 6.9 (4.8-10.8) X10*3/uL RBC 4.41 (4.20-5.50) X10*6/uL Hgb 11.3 L (12.0-16.0) g/dl Hct 35.3 L (37.0-47.0) % MCV 80.0 (80.0-98.0) fL MCH 25.6 L (27.0-33.0) pg MCHC 32.0 (31.0-35.0) g/dl RDW 13.9 (11.0-16.0) % Plt Count 235 (160-400) X10*3/uL MPV 10.3 (9.4-12.3) fL Immature Gran % (Auto) 0.1 (0.0-0.4) % Neut % (Auto) 56.8 (45-73) % Lymph % (Auto) 33.3 (20-40) % [place] % (Auto) 6.6 (2-11) % Eos % (Auto) 3.1 (0-4) % Baso % (Auto) 0.1 (0-2) % Lymph # (Auto) 2.3 (1.2-4.9) X10*3/uL [place] # (Auto) 0.5 (0.1-1.2) X10*3/uL Eos # (Auto) 0.2 (0.0-0.4) X10*3/uL Baso # (Auto) 0.0 (0.0-0.2) X10*3/uL Abs Immat Gran (auto) 0.01 (0.00-0.03) X10*3/uL Absolute Neuts (auto) 3.9 (2.0-8.3) x10*3/uL Absolute Nucleated RBC 0.000 (0.0-0.012) X10*3/uL Nucleated RBC % (auto) 0.0 (0.0-0.2) /100WBC PT 11.7 (10.0-13.1) SEC INR 1.0 (0.9-1.1) Sodium 138 (135-145) mmol/L Potassium 3.6 (3.3-5.1) mmol/L Chloride 107 (96-108) mmol/L Carbon Dioxide 23 (22-29) mmol/L Anion Gap 12 (12-20) BUN 10 (9-16) mg/dL Creatinine 0.69 (0.5-1.4) mg/dL Estim Creat Clear Calc 99.5 Estimated GFR > 60 Random Glucose 86 (60-115) mg/dL Calcium 8.9 (8.4-10.2) mg/dL Magnesium 1.9 (1.6-2.6) mg/dL Total Bilirubin 0.6 (0.0-1.0) mg/dL AST 13 (5-31) U/L ALT 6 (0-31) U/L Alkaline Phosphatase 73 (39-117) U/L Total Protein 6.5 (6.5-8.0) g/dL Albumin 4.0 (3.5-5.0) g/dL Beta HCG, Quant mIU/mL Urine Color Urine Appearance Urine pH (5.0-9.0) Ur Specific [place] (1.005-1.025) Urine Protein (Neg-Trace) mg/dL Urine Glucose (UA) (Negative) mg/dL Urine Ketones (Negative) mg/dL Urine Blood (Negative) Urine Nitrite (Negative) Ur Leukocyte Esterase (Negative) Urine RBC (0-2) /HPF Urine WBC (0-5) /HPF Ur Squamous Epith Cells (0-2) /HPF Urine Bacteria (None Seen) Hyaline Casts (0-2) /LPF Ethyl Alcohol mg/dL 09/08/22 09/08/22 Range/Units 18:23 19:25 WBC (4.8-10.8) X10*3/uL RBC (4.20-5.50) X10*6/uL Hgb (12.0-16.0) g/dl Hct (37.0-47.0) % MCV (80.0-98.0) fL MCH (27.0-33.0) pg MCHC (31.0-35.0) g/dl RDW (11.0-16.0) % Plt Count (160-400) X10*3/uL MPV (9.4-12.3) fL Immature Gran % (Auto) (0.0-0.4) % Neut % (Auto) (45-73) % Lymph % (Auto) (20-40) % [place] % (Auto) (2-11) % Eos % (Auto) (0-4) % Baso % (Auto) (0-2) % Lymph # (Auto) (1.2-4.9) X10*3/uL [place] # (Auto) (0.1-1.2) X10*3/uL Eos # (Auto) (0.0-0.4) X10*3/uL Baso # (Auto) (0.0-0.2) X10*3/uL Abs Immat Gran (auto) (0.00-0.03) X10*3/uL Absolute Neuts (auto) (2.0-8.3) x10*3/uL Absolute Nucleated RBC (0.0-0.012) X10*3/uL Nucleated RBC % (auto) (0.0-0.2) /100WBC PT (10.0-13.1) SEC INR (0.9-1.1) Sodium (135-145) mmol/L Potassium (3.3-5.1) mmol/L Chloride (96-108) mmol/L Carbon Dioxide (22-29) mmol/L Anion Gap (12-20) BUN (9-16) mg/dL Creatinine (0.5-1.4) mg/dL Estim Creat Clear Calc Estimated GFR Random Glucose (60-115) mg/dL Calcium (8.4-10.2) mg/dL Magnesium (1.6-2.6) mg/dL Total Bilirubin (0.0-1.0) mg/dL AST (5-31) U/L ALT (0-31) U/L Alkaline Phosphatase (39-117) U/L Total Protein (6.5-8.0) g/dL Albumin (3.5-5.0) g/dL Beta HCG, Quant < 2 mIU/mL Urine Color Yellow Urine Appearance Cloudy Urine pH 6.0 (5.0-9.0) Ur Specific [place] 1.010 (1.005-1.025) Urine Protein Negative (Neg-Trace) mg/dL Urine Glucose (UA) Negative (Negative) mg/dL Urine Ketones Trace (Negative) mg/dL Urine Blood Negative (Negative) Urine Nitrite Negative (Negative) Ur Leukocyte Esterase Trace H (Negative) Urine RBC 0-2 (0-2) /HPF Urine WBC 6-10 H (0-5) /HPF Ur Squamous Epith Cells >20 (0-2) /HPF Urine Bacteria 4+ (None Seen) Hyaline Casts 0-2 (0-2) /LPF Ethyl Alcohol < 10 mg/dL <SEBAS Braden - Last Filed: 09/08/22 16:40> Lab Results 09/08/22 09/08/22 09/08/22 Range/Units 18: 18: 18: WBC 6.9 (4.8-10.8) X10*3/uL RBC 4.41 (4.20-5.50) X10*6/uL Hgb 11.3 L (12.0-16.0) g/dl Hct 35.3 L (37.0-47.0) % MCV 80.0 (80.0-98.0) fL MCH 25.6 L (27.0-33.0) pg MCHC 32.0 (31.0-35.0) g/dl RDW 13.9 (11.0-16.0) % Plt Count 235 (160-400) X10*3/uL MPV 10.3 (9.4-12.3) fL Immature Gran % (Auto) 0.1 (0.0-0.4) % Neut % (Auto) 56.8 (45-73) % Lymph % (Auto) 33.3 (20-40) % [place] % (Auto) 6.6 (2-11) % Eos % (Auto) 3.1 (0-4) % Baso % (Auto) 0.1 (0-2) % Lymph # (Auto) 2.3 (1.2-4.9) X10*3/uL [place] # (Auto) 0.5 (0.1-1.2) X10*3/uL Eos # (Auto) 0.2 (0.0-0.4) X10*3/uL Baso # (Auto) 0.0 (0.0-0.2) X10*3/uL Abs Immat Gran (auto) 0.01 (0.00-0.03) X10*3/uL Absolute Neuts (auto) 3.9 (2.0-8.3) x10*3/uL Absolute Nucleated RBC 0.000 (0.0-0.012) X10*3/uL Nucleated RBC % (auto) 0.0 (0.0-0.2) /100WBC PT 11.7 (10.0-13.1) SEC INR 1.0 (0.9-1.1) Sodium 138 (135-145) mmol/L Potassium 3.6 (3.3-5.1) mmol/L Chloride 107 (96-108) mmol/L Carbon Dioxide 23 (22-29) mmol/L Anion Gap 12 (12-20) BUN 10 (9-16) mg/dL Creatinine 0.69 (0.5-1.4) mg/dL Estim Creat Clear Calc 99.5 Estimated GFR > 60 Random Glucose 86 (60-115) mg/dL Calcium 8.9 (8.4-10.2) mg/dL Magnesium 1.9 (1.6-2.6) mg/dL Total Bilirubin 0.6 (0.0-1.0) mg/dL AST 13 (5-31) U/L ALT 6 (0-31) U/L Alkaline Phosphatase 73 (39-117) U/L Total Protein 6.5 (6.5-8.0) g/dL Albumin 4.0 (3.5-5.0) g/dL Beta HCG, Quant mIU/mL Urine Color Urine Appearance Urine pH (5.0-9.0) Ur Specific [place] (1.005-1.025) Urine Protein (Neg-Trace) mg/dL Urine Glucose (UA) (Negative) mg/dL Urine Ketones (Negative) mg/dL Urine Blood (Negative) Urine Nitrite (Negative) Ur Leukocyte Esterase (Negative) Urine RBC (0-2) /HPF Urine WBC (0-5) /HPF Ur Squamous Epith Cells (0-2) /HPF Urine Bacteria (None Seen) Hyaline Casts (0-2) /LPF Ethyl Alcohol mg/dL 09/08/22 09/08/22 Range/Units 18:23 19:25 WBC (4.8-10.8) X10*3/uL RBC (4.20-5.50) X10*6/uL Hgb (12.0-16.0) g/dl Hct (37.0-47.0) % MCV (80.0-98.0) fL MCH (27.0-33.0) pg MCHC (31.0-35.0) g/dl RDW (11.0-16.0) % Plt Count (160-400) X10*3/uL MPV (9.4-12.3) fL Immature Gran % (Auto) (0.0-0.4) % Neut % (Auto) (45-73) % Lymph % (Auto) (20-40) % [place] % (Auto) (2-11) % Eos % (Auto) (0-4) % Baso % (Auto) (0-2) % Lymph # (Auto) (1.2-4.9) X10*3/uL [place] # (Auto) (0.1-1.2) X10*3/uL Eos # (Auto) (0.0-0.4) X10*3/uL Baso # (Auto) (0.0-0.2) X10*3/uL Abs Immat Gran (auto) (0.00-0.03) X10*3/uL Absolute Neuts (auto) (2.0-8.3) x10*3/uL Absolute Nucleated RBC (0.0-0.012) X10*3/uL Nucleated RBC % (auto) (0.0-0.2) /100WBC PT (10.0-13.1) SEC INR (0.9-1.1) Sodium (135-145) mmol/L Potassium (3.3-5.1) mmol/L Chloride (96-108) mmol/L Carbon Dioxide (22-29) mmol/L Anion Gap (12-20) BUN (9-16) mg/dL Creatinine (0.5-1.4) mg/dL Estim Creat Clear Calc Estimated GFR Random Glucose (60-115) mg/dL Calcium (8.4-10.2) mg/dL Magnesium (1.6-2.6) mg/dL Total Bilirubin (0.0-1.0) mg/dL AST (5-31) U/L ALT (0-31) U/L Alkaline Phosphatase (39-117) U/L Total Protein (6.5-8.0) g/dL Albumin (3.5-5.0) g/dL Beta HCG, Quant < 2 mIU/mL Urine Color Yellow Urine Appearance Cloudy Urine pH 6.0 (5.0-9.0) Ur Specific [place] 1.010 (1.005-1.025) Urine Protein Negative (Neg-Trace) mg/dL Urine Glucose (UA) Negative (Negative) mg/dL Urine Ketones Trace (Negative) mg/dL Urine Blood Negative (Negative) Urine Nitrite Negative (Negative) Ur Leukocyte Esterase Trace H (Negative) Urine RBC 0-2 (0-2) /HPF Urine WBC 6-10 H (0-5) /HPF Ur Squamous Epith Cells >20 (0-2) /HPF Urine Bacteria 4+ (None Seen) Hyaline Casts 0-2 (0-2) /LPF Ethyl Alcohol < 10 mg/dL <Lui Day MD - Last Filed: 09/08/22 20:13> Independent Interpretation I performed an independent interpretation of an: EKG <Lui Day MD - Last Filed: 09/08/22 20:13> Interpretation: sinus rhythm with a rate of 66. No ST elevation or depression. Normal QRS axis. No ectopy. Normal EKG. <Lui Day MD - Last Filed: 09/08/22 20:13> Radiology Impression Discussion of test interpretation with radiology: I have reviewed the radiologist's reading. <Lui Day MD - Last Filed: 09/08/22 20:13> Radiologist Impression: CT brain: IMPRESSION: No CT evidence of acute intracranial process Chest x-ray: MPRESSION: No acute intrathoracic disease. <Lui Day MD - Last Filed: 09/08/22 20:13> Prescription Management I considered prescription management with: Other <Lui Day MD - Last Filed: 09/08/22 20:13> anti anxiety medicine <Lui Day MD - Last Filed: 09/08/22 20:13> Chronic Conditions Patient?s care impacted by: Other ( anxiety and depression) <Lui Day MD - Last Filed: 09/08/22 20:13> Discharge Plan Discharge Clinical Impression: Anxiety, Acute chest wall pain <SEBAS Braden - Last Filed: 09/08/22 16:40> Patient Disposition: Home, Self-Care <SEBAS Braden - Last Filed: 09/08/22 16:40> Instructions: Anxiety (ED), Chest Wall Pain (ED) <SEBAS Braden - Last Filed: 09/08/22 16:40> Additional Instructions: Increase Your clonazepam to 1 mg 3 times a day. Follow-up with your primary care physician or psychiatrist regarding review of your antianxiety/ antidepressant medications, as they may want to change your dose of bupropion, or changing to a different medicine. Use ibuprofen and muscle relaxant as prescribed. <SEBAS Braden - Last Filed: 09/08/22 16:40> Prescriptions: New clonazepam 1 mg tablet 1 mg PO TID Qty: 21 0RF ibuprofen 600 mg tablet 600 mg PO Q6H PRN (Reason: pain) Qty: 30 0RF baclofen 10 mg tablet 10 mg PO TID Qty: 20 0RF Discontinued cyclobenzaprine 10 mg tablet 10 mg PO BEDTIME PRN (Reason: muscle spasm) 30 Days Qty: 30 3RF No Action bupropion HCl 150 mg tablet extended release 24 hr 150 mg PO QAM 90 Days Qty: 90 1RF tramadol 50 mg tablet 50 mg PO BID PRN (Reason: pain) 30 Days Qty: 60 0RF meclizine 25 mg tablet 25 mg PO BID PRN (Reason: dizziness) 7 Days Qty: 14 0RF clonazepam 1 mg tablet 1 mg PO BID PRN (Reason: anxiety) 30 Days Qty: 60 0RF terconazole 0.8 % cream 1 appful vaginal BEDTIME 3 Days Qty: 20 0RF <SEBAS Braden - Last Filed: 09/08/22 16:40>
[2022-09-08 18:03] VITALS: BP 110/64; PULSE 59; RESP 16; TEMP 36.9; O2SAT 100
[2022-09-08] MEDS: LORazepam 1 MG TABLET PO (18:28)
[2022-09-08] MEDS: Ketorolac Tromethamine 30 MG/ML VIAL IM (18:29)
[2022-09-08 18:30] LABS: MANUAL DIFF FLAG NO
[2022-09-08 18:40] LABS: Basophils Percent Auto 0.1 % (0-2); Eosinophils Absolute Auto 0.2 X10*3/uL (0.0-0.4); Eosinophils Percent Auto 3.1 % (0-4); Hematocrit 35.3 % (37.0-47.0); Hemoglobin 11.3 g/dl (12.0-16.0); Imm Gran Abs Auto 0.01 X10*3/uL (0.00-0.03); Imm Gran Pct Auto 0.1 % (0.0-0.4); Lymphocytes Absolute Auto 2.3 X10*3/uL (1.2-4.9); Lymphocytes Percent Auto 33.3 % (20-40); Mean Corpuscular Hemoglobin 25.6 pg (27.0-33.0); Mean Platelet Volume 10.3 fL (9.4-12.3); Monocytes Absolute Auto 0.5 X10*3/uL (0.1-1.2); Monocytes Percent Auto 6.6 % (2-11); Neutrophils Absolute Auto 3.9 x10*3/uL (2.0-8.3); Neutrophils Percent Auto 56.8 % (45-73); Platelet Count 235 X10*3/uL (160-400); Red Blood Count 4.41 X10*6/uL (4.20-5.50); Red Cell Distribution Width 13.9 % (11.0-16.0); White Blood Count 6.9 X10*3/uL (4.8-10.8)
[2022-09-08 18:41] LABS: Prothrombin Time 11.7 SEC (10.0-13.1)
[2022-09-08 18:56] LABS: Alanine Aminotransferase 6 U/L (0-31); Alkaline Phosphatase 73 U/L (39-117); Anion Gap 12 (12-20); Aspartate Amino Transferase 13 U/L (5-31); Bilirubin Total 0.6 mg/dL (0.0-1.0); Blood Urea Nitrogen 10 mg/dL (9-16); Calcium 8.9 mg/dL (8.4-10.2); Carbon Dioxide 23 mmol/L (22-29); Chloride 107 mmol/L (96-108); Creatinine Clr Calc Pharmacy 99.5; Estimated Glomerular Filt Rate > 60; Glucose Random 86 mg/dL (60-115); Magnesium 1.9 mg/dL (1.6-2.6); Potassium 3.6 mmol/L (3.3-5.1); Sodium 138 mmol/L (135-145); Total Protein 6.5 g/dL (6.5-8.0)
[2022-09-08 19:01] LABS: Ethanol < 10 mg/dL
[2022-09-08 19:06] LABS: HCG Quantitative < 2 mIU/mL
[2022-09-08 19:33] LABS: Appearance Urine Cloudy; Color Urine Yellow; Glucose Urine UA Negative (Negative); Leukocyte Esterase Urine Trace (Negative); Nitrite Urine Negative (Negative); UMIC TRIGGER UACC YES; Urine Blood Negative (Negative); Urine Ketones Trace mg/dL (Negative); Urine Protein Negative (Neg-Trace)
--- NOTE | 2022-09-08 19:45 | PC.NURSE ---
assumed care of pt, no apparent distress, resting quietly, minor daughter and significant other at bedside
[2022-09-08 19:47] LABS: Bacteria Urine 4+ (None Seen); Hyaline Casts Urine 0-2 /LPF (0-2); RBC Urine 0-2 /HPF (0-2); Squamous Epithelial Cell Urine >20 /HPF (0-2); UACC Culture Trigger YES
[2022-09-08 20:00] VITALS: BP 115/73; PULSE 67; RESP 21; TEMP 36.7; O2SAT 98
--- NOTE | 2022-09-08 20:16 | PC.NURSE ---
Discharge instructions given and explained. No apparent distress. Patient ambulates safely/independently. Pt left with significant other and child.
== END 2022-09-08 20:16 | disposition home or self-care (01) ==
PROVIDERS: Physician Assistant Medical; Emergency Provider Emergency Medicine; PCP Internal Medicine
DX: R07.89 Other chest pain (principal); R42 Dizziness and giddiness; R51.9 Headache, unspecified; F41.1 Generalized anxiety disorder; F43.0 Acute stress reaction; Z87.891 Personal history of nicotine dependence; Z79.899 Other long term (current) drug therapy
CPT/HCPCS: 36415; 70450; 71046; 80053; 81001; 82077; 83735; 84702; 85025; 85610; 87086; 93005; 96372; 99284; 99285; J1885

== ENCOUNTER 2022-09-27 14:48 | Outpatient (REF) | payer OTHER, SELFPAY ==
--- NOTE | ~2022-09-27 | US_ITS ---
EXAMINATION: US PELVIS CLINICAL INFORMATION: Pelvic and perineal pain; the last menstrual period was on 09/21/2022. COMPARISON: None TECHNIQUE: Ultrasound of the pelvis is performed using both transabdominal and transvaginal transducers along with Doppler. Transvaginal imaging is performed due to inadequate visualization transabdominally. FINDINGS: Uterus: The uterus is anteverted and anteflexed. The uterus measures 8.3 x 2.9 x 5.8 cm. Nabothian cysts are seen within the cervix. There is trace free fluid within the endometrial canal. The double wall endometrial thickness is 12 mm. A 6 x 6 x 6 mm polyp is seen within the endometrial canal. The uterus is smooth in contour and has normal myometrial echogenicity. No visible fibroid. Adnexa: Both ovaries are visualized. There is normal color flow to the adnexa. There is no ovarian torsion. There is no pelvic ascites or fluid collection. 1.5 cm and 6 mm in maximal diameter simple left paraovarian cysts are noted. Right ovary measures 2.6 x 1.8 x 2.0 cm, volume 4.9 mL. The right ovary contains a 1.3 x 1.6 x 1.4 cm simple, dominant cyst. Left ovary measures 2.7 x 1.1 x 2.0 cm, volume 3.1 mL. US/US pelvic and transvaginal IMPRESSION: 1. A 6 mm in maximal diameter endometrial polyp is seen, possibly focal endometrial hyperplasia, a hyperplastic polyp, a subendometrial fibroid or other neoplasm. Gynecology evaluation and management is recommended, with consideration for tissue sampling, if clinically indicated. 2. Nabothian cysts are seen within the cervix, and there is trace nonspecific endocervical free fluid. 3. A 1.6 cm in maximal diameter dominant right ovarian cyst is incidentally noted. No imaging follow-up is recommended for this finding. 4. 1.5 cm and 6 mm simple left paraovarian cysts are seen.
== END 2022-09-27 14:49 | disposition home or self-care (01) ==
LOC: HO.US 14:48
PROVIDERS: Visit Provider Obstetrics & Gynecology
DX: R10.2 Pelvic and perineal pain (principal); M54.2 Cervicalgia
CPT/HCPCS: 76830; 76856

== ENCOUNTER → 2022-10-11 11:42 | Outpatient (BNVA) | payer OTHER, SELFPAY | PROVIDERS: PCP Internal Medicine; Visit Provider Obstetrics & Gynecology | DX: N84.0 Polyp of corpus uteri (principal); R10.2 Pelvic and perineal pain | CPT/HCPCS: 99212 ==

== ENCOUNTER → 2022-10-28 07:53 | Day surgery (SDC) | payer OTHER, SELFPAY ==
[2022-10-25 10:05] VITALS: BMI 28.7
[2022-10-28] VITALS (11 sets, daily range): BP systolic 106–118; BP diastolic 60–77; PULSE 46–78; RESP 16–18; TEMP 36.1–36.6; O2SAT 98–100; BMI 29.6
[2022-10-28 08:32] LABS: UPreg QC Valid YES; Urine Pregnancy NEGATIVE (NEGATIVE)
[2022-10-28] MEDS: Lactated Ringers 1,000 ML 100 ML IVCONT (08:53)
--- NOTE | 2022-10-28 09:23 | HO.ANESPROP2 ---
HPI - Anesthesia Eval Consult details Narrative: For D&C [facility] Active Problems Active Problems: All Active Problems (Updated 10/11/22 @ 12:16 by Frank Nolan MD) Endometrial polyp (Acute) Neck pain (Acute) Dizziness (Acute) Fibrocystic breast (Acute) Vulvovaginitis (Acute) Pelvic pain (Acute) Breast lump in upper outer quadrant (Acute) Costovertebral angle tenderness (Acute) Blurry vision (Acute) Family history of gastric cancer (Acute) Physical exam (Acute) Vaginitis (Acute) Mild recurrent major depression (Acute) Periumbilical mass (Acute) COVID-19 (Acute) Anxiety (Acute) Polyarthralgia (Acute) Family planning advice (Acute) Breast lump (Acute) Well woman exam (Acute) Abnormal uterine bleeding (AUB) (Acute) BV (bacterial vaginosis) (Acute) Pelvic pain in female (Acute) Past Medical History Medical History Anxiety Blurry vision COVID-19 Family history of gastric cancer Fibrocystic breast History of asthma History of depression History of panic attacks Hx of anxiety disorder Mild recurrent major depression Periumbilical mass Physical exam Polyarthralgia Patient : No Family History Family History Maternal Aunt History of breast cancer Sister Stomach cancer, Onset Age: 34 Father No problems noted. Mother No problems noted. Family/Other FH: mental illness Family history of problems with anesthesia: No Surgical History Surgical History Hx of section Periumbilical hernia History of Problems with Anesthesia: No Social History Social History Housing: Apartment Alcohol intake: current Alcohol intake frequency: holidays/special occasions only Alcohol type: beer Patient Tobacco Use Status: Former Tobacco user Tobacco use type: Cigarette e-Cigarette/Vaping Use: Never Used Second Hand Smoke Exposure: No Use of substances other than those prescribed or required for medical reasons: No Are you DNR?: No Advance Directives: No Advance Directives Information Provided: Yes Patient : No service: No Current occupational status: employed Current occupational exposures/hazards: No Cognitive needs: No Hearing needs: No Vision needs: No Meds Allergies Allergy/AdvReac Type Severity Reaction Status Date / Time codeine [CODEINE] Allergy Intermediate TACHYCARDIA Verified 10/11/22 12:03 Active Medications: Current Medications Albuterol Sulfate (Albuterol Sulfate (0.083%) 2.5 Mg/3 Ml Vial.Neb) 2.5 mg INHALE ONCE PRN PRN Reason: Shortness of Breath/Wheezing Lactated Ringer's (Lr) 1,000 mls @ 100 mls/hr IVCONT .Q10H ALLEGRA Last Admin: 10/28/22 08:53 Dose: 100 mls/hr Exam Exam Date and Time: October 28, 2022 0924 Height,Weight and Vital Signs: Height 5 ft 1 in Weight 71.214 kg Last Vital Signs Temp 97.2 F 10/28/22 08:30 Pulse 78 10/28/22 08:30 Resp 18 10/28/22 08:30 BP 111/70 10/28/22 08:30 Pulse Ox 100 10/28/22 08:30 O2 Del Method 10/28/22 08:30 Pertinent Lab Results Pertinent Lab Results: Laboratory Tests 10/28/22 08:16 Urine Test NEGATIVE Airway Mallampati Class: I TM Dist: >3cm Neck ROM: Full Loose/Missing/Broken Teeth: No Heart: ok Lungs: ok Assessment and Plan Assessment Anesthesia Assessment: Anesthesia Plan Discussed and Chart Reviewed Final Anesthetic Review Family History of Problems with Anesthesia: No History of Problems with Anesthesia: No NPO: Yes ASA Class: II Final Preanesthetic Review: No Changes in Pt Med Stat, Meds/Allgs Chart Reviewed, Consent Obtained/Reviewed and Anes Risks/Benef Reviewed Patient Risk: Low Procedure Risk: Low Anesthetic Plan Anesthetic Plan: GA and Agree w/ Assess. and Plan Disposition: Standard PACU
--- NOTE | 2022-10-28 09:24 | MHC.SHP ---
Pre-Procedural Eval Section A Date of Service: 10/28/22 The patient is an INPATIENT: No Changes since office visit: No Cold of Flu in the past 2 weeks, No New Medical Problems, No Changes in Medication and No Patient answered all questions The History & Physical has been completed within 30 days and I have reviewed it.: Yes Section B Chief Complaint: Polyp of corpus uteri Allergies: Allergies Allergy/AdvReac Type Severity Reaction Status Date / Time codeine [CODEINE] Allergy Intermediate TACHYCARDIA Verified 10/11/22 12:03 Plan Diagnosis/Plan: Unchanged I have reviewed the history and physical and performed a pertinent physical examination on my patient. No changes have occurred unless specified. Time Spent With Patient Time: Total time managing care of this patient today ____ minutes.
--- NOTE | 2022-10-28 10:01 | PM.OP ---
Brief Operative Note Date of Service: 10/28/22 Pre-op diagnosis: Endometrial polyp by ultrasound Post-op diagnosis: same Procedure: Hysteroscopy D&C, Polypectomy Surgeon: Frank Nolan MD Anesthesia: GLMA Was an Machine Chocolate Molder used for this Procedure?: No Estimated blood loss (mL): 0 Pathology: other (Endometrial Scrapping. Polyp) Condition: stable Disposition: PACU
--- NOTE | 2022-10-28 10:02 | P.OP_ITS ---
Operative Note Operative Note Date of Service: 10/28/22 Narrative: Preop Diagnosis: Endometrial polyp by US Operation: Diagnostic Hysteroscopy, Dilataion & Curettage and polypectomy Post Op Diagnosis: Endometrial Polyp QBL: Minimal Anesthesia: GLMA Surgeon: Frank Nolan MD Manufacturing Controller: None Complication: None Pathology: Endometrial Scrapings, Endometrial polyp Procedure: The patient was put in the dorsal lithotomy position, scrubbed, and draped in the usual manner. A sterile speculum was inserted in the patient's vagina. The anterior lip of the cervix was grasped with a single tooth tenaculum. The cervix was dilated up to 5 mm, then the scope was inserted in the patient's uterus. Inspection revealed endometrial polyp. The Myosure Reach device was used; it was introduced through the operative channel and polypectomy done with no complications. The scope was then taken out from the uterine cavity, sharp curettings was carried on with minimal to moderate amount of tissues retrieved. At the end of the procedure, all instruments were taken out of the patient uterine and vaginal cavity. The single tooth tenaculum was removed and homeostasis was assured using pressure,. The patient tolerated the procedure well and was transferred to the PACU in a stable condition.
[2022-10-28] MEDS: Acetaminophen 325 MG TABLET 650 MG PO (10:12)
[2022-10-28] MEDS: oxyCODONE HCl Immed Release 5 MG TABLET PO (10:13)
[2022-10-28] MEDS: fentaNYL citrate/PF 100 MCG/2 ML VIAL 50 MCG IVPUSH (10:13)
[2022-10-28] MEDS: Ketorolac Tromethamine 30 MG/ML VIAL IVPUSH (10:43)
== END | disposition home or self-care (01) ==
PROVIDERS: PCP Internal Medicine; Visit Provider Obstetrics & Gynecology
PROC: 0UDB8ZZ Extraction of Endometrium, Via Natural or Artificial Opening Endoscopic (ICD-10-PCS; CPT 58558; principal; 2022-10-28 09:30)
DX: N84.0 Polyp of corpus uteri (principal); N60.19 Diffuse cystic mastopathy of unspecified breast; M25.50 Pain in unspecified joint; F33.0 Major depressive disorder, recurrent, mild; Z79.899 Other long term (current) drug therapy; Z79.1 Long term (current) use of non-steroidal anti-inflammatories (NSAID); Z88.8 Allergy status to other drugs, medicaments and biological substances; Z87.891 Personal history of nicotine dependence; Z86.16 Personal history of COVID-19
CPT/HCPCS: 58558; 81025; 88305; J1885; J2405; J3010

== ENCOUNTER 2022-11-09 09:02 | Outpatient (REF) | payer OTHER, SELFPAY ==
[2022-11-09 14:19] LABS: CT PCR NOT DETECTED (Not Detect.); NG PCR NOT DETECTED (Not Detect.)
[2022-11-10 10:48] LABS: BV Int Neg Control Negative (Negative); BV Int Pos Control Positive (Positive)
== END 2022-11-09 09:03 | disposition home or self-care (01) ==
LOC: HO.LNP 09:02
PROVIDERS: PCP Internal Medicine; Visit Provider Obstetrics & Gynecology
DX: N84.0 Polyp of corpus uteri (principal); N76.0 Acute vaginitis; B96.89 Other specified bacterial agents as the cause of diseases classified elsewhere
CPT/HCPCS: 0353U; 87480; 87510; 87660; 99212

== ENCOUNTER 2023-06-15 02:16 | Emergency (ER) | payer OTHER, SELFPAY ==
--- NOTE | ~2023-06-15 | CT_ITS ---
EXAMINATION: CT ABDOMEN AND PELVIS WITH CONTRAST CLINICAL INFORMATION: Mid abdominal pain with nausea/vomiting COMPARISON: 01/31/2019 TECHNIQUE: Multidetector volumetric images were obtained from the superior aspect of the liver through the pubic symphysis following administration 85 mL of Omnipaque 350 intravenous contrast. Sagittal and coronal reformatted images were obtained on the technologist's workstation. Oral contrast: No This CT examination was performed using dose optimization techniques as appropriate, variously including the following: *Automated exposure control *Adjustment of mA and/or kV according to patient size (this includes techniques or standardized protocols for targeted exams where dose is matched to indication/reason for exam; i.e. extremities or head) *Use of iterative reconstruction technique DLP: 466 mGy-cm FINDINGS: LUNG BASES: Minimal dependent right lower lobe atelectasis. LIVER, GALLBLADDER, AND BILIARY TREE: The liver is normal in size, shape, and attenuation. No focal hepatic lesion or biliary ductal dilatation is present. The gallbladder is unremarkable with no evidence of radiopaque gallstones, gallbladder wall thickening, or obvious pericholecystic inflammatory changes. PANCREAS: Unremarkable. SPLEEN: Unremarkable. ADRENAL GLANDS: Unremarkable. KIDNEYS AND URETERS: Bilateral nephrograms are symmetric. No hydronephrosis or obstructing calculus identified. BLADDER: Mildly distended and grossly unremarkable. GASTROINTESTINAL TRACT: No evidence of bowel obstruction or significant wall thickening. Appendix size appears within normal limits, without surrounding inflammation. Small volume of pelvic free fluid is noted. No free air is seen. ABDOMINAL WALL: No significant hernia is appreciated. LYMPH NODES: Normal. VASCULAR: Unremarkable. PELVIC VISCERA: Peripherally enhancing structure in the right adnexa measuring up to approximately 3 cm favors a corpus luteal cyst. OSSEOUS STRUCTURES: Unremarkable. CT/CT abdomen pelvis w IV con IMPRESSION: Small volume pelvic free fluid, which may be physiologic. Otherwise, no acute findings identified in the abdomen/pelvis.
[2023-06-15 02:20] VITALS: BP 109/77; PULSE 87; RESP 18; TEMP 36.9; O2SAT 97; BMI 28.2
[2023-06-15 02:31] VITALS: BP 121/72; PULSE 82; RESP 18; TEMP 36.7; O2SAT 98
[2023-06-15 02:52] LABS: Appearance Urine Clear; Color Urine Yellow; Glucose Urine UA Negative (Negative); Leukocyte Esterase Urine Small (1+) (Negative); Nitrite Urine Negative (Negative); PH 6.5 (5.0-9.0); Specific Gravity - Urine 1.025 (1.005-1.025); UMIC TRIGGER UACC YES; Urine Blood Negative (Negative); Urine Ketones Negative (Negative); Urine Protein Negative (Neg-Trace)
[2023-06-15 02:53] LABS: UPreg QC Valid YES; Urine Pregnancy NEGATIVE (NEGATIVE)
[2023-06-15 03:22] LABS: Bacteria Urine None Seen (None Seen); Hyaline Casts Urine 0-2 /LPF (0-2); RBC Urine 0-2 /HPF (0-2); UACC Culture Trigger YES; WBC Urine 0-5 /HPF (0-5)
[2023-06-15 03:41] LABS: MANUAL DIFF FLAG NO
[2023-06-15 03:42] LABS: Basophils Percent Auto 0.2 % (0-2); Eosinophils Absolute Auto 0.2 X10*3/uL (0.0-0.4); Eosinophils Percent Auto 2.9 % (0-4); Hematocrit 35.6 % (37.0-47.0); Hemoglobin 11.3 g/dl (12.0-16.0); Imm Gran Abs Auto 0.01 X10*3/uL (0.00-0.03); Imm Gran Pct Auto 0.2 % (0.0-0.4); Lymphocytes Absolute Auto 0.9 X10*3/uL (1.2-4.9); Lymphocytes Percent Auto 16.8 % (20-40); Mean Corpuscular HGB Conc 31.7 g/dl (31.0-35.0); Mean Corpuscular Hemoglobin 25.6 pg (27.0-33.0); Mean Corpuscular Volume 80.7 fL (80.0-98.0); Mean Platelet Volume 10.1 fL (9.4-12.3); Monocytes Absolute Auto 0.5 X10*3/uL (0.1-1.2); Monocytes Percent Auto 9.1 % (2-11); Neutrophils Absolute Auto 3.7 x10*3/uL (2.0-8.3); Neutrophils Percent Auto 70.8 % (45-73); Platelet Count 237 X10*3/uL (160-400); Red Blood Count 4.41 X10*6/uL (4.20-5.50); Red Cell Distribution Width 13.9 % (11.0-16.0); White Blood Count 5.2 X10*3/uL (4.8-10.8)
[2023-06-15 03:55] LABS: Alanine Aminotransferase 7 U/L (0-31); Albumin Level 3.8 g/dL (3.5-5.0); Alkaline Phosphatase 74 U/L (39-117); Anion Gap 11 (12-20); Aspartate Amino Transferase 13 U/L (5-31); Bilirubin Total 0.4 mg/dL (0.0-1.0); Blood Urea Nitrogen 9 mg/dL (9-16); Calcium 8.7 mg/dL (8.4-10.2); Carbon Dioxide 22 mmol/L (22-29); Chloride 110 mmol/L (96-108); Estimated Glomerular Filt Rate > 60; Glucose Random 96 mg/dL (60-115); Lipase 30 U/L (8-78); Potassium 3.8 mmol/L (3.3-5.1); Sodium 139 mmol/L (135-145); Total Protein 6.6 g/dL (6.5-8.0)
--- NOTE | 2023-06-15 04:31 | ED.ABDPAIN ---
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 Patient reports that there is an unspecified viral illness at her job and currently denies any shortness of breath/chest pain/palpitations and denies any diarrhea or dysuria. She does have a significant past medical history of intra-abdominal surgery in the form of ventral hernia repair and section. Related Data Previous Rx's Medication Instructions Recorded meclizine 25 mg tablet 25 mg PO BID PRN dizziness 7 days 08/23/22 #14 tabs ibuprofen 600 mg tablet 600 mg PO Q6H PRN pain #30 tabs 09/08/22 baclofen 10 mg tablet 10 mg PO TID #20 tabs 09/19/22 bupropion HCl 150 mg 24 hr tablet, 150 mg PO QAM 90 days #90 tabs 09/19/22 extended release metronidazole 500 mg tablet 500 mg PO BID 7 days #14 tabs 11/09/22 clonazepam 1 mg tablet 1 mg PO BID PRN anxiety 30 days 05/25/23 #60 tabs tramadol 50 mg tablet 50 mg PO BID PRN pain 30 days #60 05/25/23 tabs ondansetron 4 mg disintegrating 4 mg PO Q8H PRN nausea and 06/15/23 tablet vomiting #7 tabs Allergies Allergy/AdvReac Type Severity Reaction Status Date / Time codeine [CODEINE] Allergy Intermediate TACHYCARDIA Verified 11/09/22 09:14 Review of Systems Review of Systems Pertinent positives and negatives as stated in HPI PMFSH Past Medical History Source: nursing notes reviewed Medical History Fibrocystic breast Blurry vision Family history of gastric cancer Physical exam Mild recurrent major depression Periumbilical mass COVID-19 Anxiety Polyarthralgia History of asthma History of depression History of panic attacks Hx of anxiety disorder Surgical History Periumbilical hernia Hx of section Family History Family History Maternal Aunt History of breast cancer Sister Stomach cancer, Onset Age: 34 Father No problems noted. Mother No problems noted. Family/Other FH: mental illness Social History Social History Housing: Apartment Alcohol intake: current Alcohol intake frequency: holidays/special occasions only Alcohol type: beer Patient Tobacco Use Status: Former Tobacco user Tobacco use type: Cigarette e-Cigarette/Vaping Use: Never Used Second Hand Smoke Exposure: No Advance Directives: No Advance Directives Information Provided: Yes Patient : No service: No Current occupational status: employed Current occupational exposures/hazards: No Cognitive needs: No Hearing needs: No Vision needs: No Physical Exam ED Vital Signs: Vital Signs - 24 hr 06/15/23 02:20 06/15/23 02:31 06/15/23 05:01 Temperature 98.4 F 98.0 F 98.0 F Pulse Rate 87 82 82 Respiratory Rate 18 18 16 Blood Pressure 109/77 121/72 110/66 Pulse Oximetry 97 98 95 Oxygen Delivery Method Room Air Room Air Room Air BMI result Body Mass Index 28.2 VITAL SIGNS: Reviewed. GENERAL: Well developed, well nourished, in no acute distress. HEAD: Normocephalic/atraumatic EYES: PERRLA, EOMI EARS: Ext canals without abnormality NOSE: Nares patent bilateral OROPHARYNX: no oral lesions noted, posterior pharynx clear NECK: Supple, no adenopathy LUNGS: Normal breath sounds. No adventitious sounds or accessory muscle use. SpO2<98> CARDIOVASCULAR: Regular rate and rhythm without noted murmurs ABDOMEN: Soft, mid upper abdomen and right upper quadrant discomfort with residual discomfort in the periumbilical area, non-distended with bowel sounds. MUSCULOSKELETAL: No tenderness, deformities, or effusions noted on gross inspection. EXTREMITIES: No cyanosis, clubbing or edema. SKIN: Inspection of the skin reveals no rashes NEUROLOGIC: Alert and oriented x 4. Strength and sensation to light touch were grossly intact x 4. Medical Decision Making Medical Decision Making MDM Narrative: 37-year-old female with history and clinical presentation, DDX: Gastroenteritis, UTI, pancreatitis, SBO, cholecystitis I reviewed all investigations and hematologic indices are negative for leukocytosis or left shift, there is a stable normocytic anemia without thrombocytopenia. Chemistry indices are grossly within normal limits without DELMAR and there is no electrolyte or liver enzyme abnormalities. Urinalysis is negative for UTI or hematuria in your is negative. CT scan negative for obstruction and no evidence to suggest cholelithiasis or acute cholecystitis, but there is a small amount pelvic free fluid which is likely physiologic. My interpretation is patient may have a component of viral gastroenteritis and she will be discharged home with anti emetics. Patient received combination analgesics and anti-nausea medication. Differential Diagnosis Differential Diagnoses: The differential diagnosis associated with the presentation includes Please see the discussion above Admission/Observation Consideration of admission/observation: Escalation of care including admission/observation considered Please see the discussion above Lab Data MDM Lab Attestation statement: I reviewed the patient's lab results. Please see the discussion above 06/15/23 03:37 06/15/23 03:36 Labs: Lab Results 06/15/23 06/15/23 06/15/23 Range/Units 02:43 03:36 03:37 WBC 5.2 (4.8-10.8) X10*3/uL RBC 4.41 (4.20-5.50) X10*6/uL Hgb 11.3 L (12.0-16.0) g/dl Hct 35.6 L (37.0-47.0) % MCV 80.7 (80.0-98.0) fL MCH 25.6 L (27.0-33.0) pg MCHC 31.7 (31.0-35.0) g/dl RDW 13.9 (11.0-16.0) % Plt Count 237 (160-400) X10*3/uL MPV 10.1 (9.4-12.3) fL Immature Gran % (Auto) 0.2 (0.0-0.4) % Neut % (Auto) 70.8 (45-73) % Lymph % (Auto) 16.8 L (20-40) % [place] % (Auto) 9.1 (2-11) % Eos % (Auto) 2.9 (0-4) % Baso % (Auto) 0.2 (0-2) % Lymph # (Auto) 0.9 L (1.2-4.9) X10*3/uL [place] # (Auto) 0.5 (0.1-1.2) X10*3/uL Eos # (Auto) 0.2 (0.0-0.4) X10*3/uL Baso # (Auto) 0.0 (0.0-0.2) X10*3/uL Abs Immat Gran (auto) 0.01 (0.00-0.03) X10*3/uL Absolute Neuts (auto) 3.7 (2.0-8.3) x10*3/uL Absolute Nucleated RBC 0.000 (0.0-0.012) X10*3/uL Nucleated RBC % (auto) 0.0 (0.0-0.2) /100WBC Sodium 139 (135-145) mmol/L Potassium 3.8 (3.3-5.1) mmol/L Chloride 110 H (96-108) mmol/L Carbon Dioxide 22 (22-29) mmol/L Anion Gap 11 L (12-20) BUN 9 (9-16) mg/dL Creatinine 0.70 (0.5-1.4) mg/dL Estim Creat Clear Calc 96.0 Estimated GFR > 60 Random Glucose 96 (60-115) mg/dL Calcium 8.7 (8.4-10.2) mg/dL Total Bilirubin 0.4 (0.0-1.0) mg/dL AST 13 (5-31) U/L ALT 7 (0-31) U/L Alkaline Phosphatase 74 (39-117) U/L Total Protein 6.6 (6.5-8.0) g/dL Albumin 3.8 (3.5-5.0) g/dL Lipase 30 (8-78) U/L Urine Color Yellow Urine Appearance Clear Urine pH 6.5 (5.0-9.0) Ur Specific [place] 1.025 (1.005-1.025) Urine Protein Negative (Neg-Trace) mg/dL Urine Glucose (UA) Negative (Negative) mg/dL Urine Ketones Negative (Negative) mg/dL Urine Blood Negative (Negative) Urine Nitrite Negative (Negative) Ur Leukocyte Esterase Small (1+) H (Negative) Urine RBC 0-2 (0-2) /HPF Urine WBC 0-5 (0-5) /HPF Ur Squamous Epith Cells 6-10 (0-2) /HPF Urine Bacteria None Seen (None Seen) Hyaline Casts 0-2 (0-2) /LPF Urine Test NEGATIVE (NEGATIVE) Radiology Impression Discussion of test interpretation with radiology: I have reviewed the radiologist's reading. Radiologist Impression: Please see the discussion above External Record Review External record reviewed: Outpatient record, Prior outpatient labs and Prior outpatient radiology Medications Administered Discontinued Medications Generic Name Dose Route Start Last Admin Trade Name Freq PRN Reason Stop Dose Admin Iohexol 85 ml 06/15/23 04:56 06/15/23 04:57 Iohexol 350 Mg/Ml 100 Ml Infus..Btl IV 06/15/23 04:57 85 ml ONCE ONE Administration Discharge Plan Discharge Clinical Impression: Gastroenteritis Patient Disposition: Home, Self-Care Instructions: Gastroenteritis (ED) Additional Instructions: 1. Reanudar todos los medicamentos caseros seg?n lo recetado. 2. Le lindsay recetado un medicamento que controla joel n?useas y v?mitos y debe utilizarlo para poder seguir rehidrat?ndose con abundante agua. 3. Recomiende Tylenol/ibuprofeno de venta reilly seg?n sea necesario para el malestar abdominal o cualquier dolor corporal o temperatura superior a 100,4. 4. Gregoria un seguimiento con mena m?dico de atenci?n primaria en los pr?ximos 1 o 2 d?as. Regrese a la reji de emergencias si los s?ntomas empeoran. 1. Resume all home medications as prescribed. 2. You have been given a prescription for medication that controlled your nausea and vomiting and you should use this so that you can continue to rehydrate with plenty of water. 3. Recommend [id number] Tylenol/ibuprofen as needed for abdominal discomfort or any body aches or temperatures greater than 100.4. 4. Follow-up with your primary care doctor in the next 1-2 days. Return to the ER for any worsening symptoms. Prescriptions: New ondansetron 4 mg tablet,disintegrating 4 mg PO Q8H PRN (Reason: nausea and vomiting) Qty: 7 0RF No Action meclizine 25 mg tablet 25 mg PO BID PRN (Reason: dizziness) 7 Days Qty: 14 0RF baclofen 10 mg tablet 10 mg PO TID Qty: 20 0RF bupropion HCl 150 mg tablet extended release 24 hr 150 mg PO QAM 90 Days Qty: 90 1RF clonazepam 1 mg tablet 1 mg PO BID PRN (Reason: anxiety) 30 Days Qty: 60 0RF tramadol 50 mg tablet 50 mg PO BID PRN (Reason: pain) 30 Days Qty: 60 0RF ibuprofen 600 mg tablet 600 mg PO Q6H PRN (Reason: pain) Qty: 30 0RF metronidazole 500 mg tablet 500 mg PO BID 7 Days Qty: 14 0RF Referrals: Sara Stover MD [Primary Care Provider] - Print Language: Pashto
[2023-06-15] MEDS: iohexoL 350 MG/ML 100 ML INFUS..BTL 85 ML IV (04:57)
[2023-06-15 05:01] VITALS: BP 110/66; PULSE 82; RESP 16; TEMP 36.7; O2SAT 95
[2023-06-15] MEDS: Acetaminophen 325 MG TABLET 975 MG PO (06:21)
[2023-06-15] MEDS: Ondansetron ODT 4 MG TAB.RAPDIS TRANSLINGU (06:21)
[2023-06-15] MEDS: Ibuprofen 400 MG TABLET PO (06:22)
[2023-06-15 06:26] VITALS: BP 114/68; PULSE 73; RESP 16; TEMP 36.7; O2SAT 99
== END 2023-06-15 06:36 | disposition home or self-care (01) ==
PROVIDERS: Emergency Provider Student in an Organized Health Care Education/Training Program; PCP Internal Medicine
DX: K52.9 Noninfective gastroenteritis and colitis, unspecified (principal); R10.13 Epigastric pain; R11.2 Nausea with vomiting, unspecified; Z87.891 Personal history of nicotine dependence; Z79.899 Other long term (current) drug therapy
CPT/HCPCS: 36415; 74177; 80053; 81001; 81025; 83690; 85025; 87086; 99284; Q9967

== ENCOUNTER 2023-08-02 09:15 | Outpatient (AMB) | payer OTHER, SELFPAY ==
[2023-08-02 09:27] VITALS: BP 116/86; PULSE 81; O2SAT 99; BMI 28.2
--- NOTE | 2023-08-02 09:27 | A.OFFPC_ITS ---
Vital Signs 08/02/23 09:27 Height 5 ft 1 in Weight 149 lb 0.6 oz BMI 28.2 BP 116/86 Blood Pressure Location Lt brachial Position Sitting Pulse 81 Pulse Source Pulse Oximeter Pulse Oximetry (%) 99 Oxygen Delivery Method Room Air Intake Visit Reasons: Physical Exam Intake Note: Patient is here today for a physical. 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 Allergies codeine [CODEINE] Allergy (Intermediate, Verified 08/02/23 09:47) TACHYCARDIA Medication List - Last Reconciled 08/02/23 by LYNNE March baclofen 10 mg PO TID clonazepam 1 mg PO BID PRN 30 days ibuprofen 600 mg PO Q6H PRN meclizine 25 mg PO BID PRN 7 days tramadol 50 mg PO BID PRN 30 days Tobacco use date assessed: 08/02/23 Dental Screening Dental Screen Date: 08/02/23 Did you have a dental visit in the last 12 months?: No Did you have a dental problem in the last 6 months where you did not have access to dental care?: No HPI Physical Exam HPI Details Patient is a 37-year-old female who presents today for physical exam. Patient of Dr. Calvert. Medical history significant for anxiety, depression, dizziness, neck pain. Pap smear normal 09/2020 with [facility]. Patient declined tetanus vaccine today. Need titers for MMR for work. Would like to have counseling for her mental health. Would like to have referral for an eye exam. No shortness of breath or chest pain. Patient is a Croatian- speaking and Robina was helping with interpretation. [facility] Medical History Fibrocystic breast Blurry vision Family history of gastric cancer Physical exam Mild recurrent major depression Periumbilical mass COVID-19 Anxiety Polyarthralgia History of asthma History of depression History of panic attacks Hx of anxiety disorder Surgical History Periumbilical hernia Hx of section Family History Maternal Aunt History of breast cancer Sister Stomach cancer, Onset Age: 34 Father No problems noted. Mother No problems noted. Family/Other FH: mental illness Social History Housing: Apartment Alcohol intake: current Alcohol intake frequency: holidays/special occasions only Alcohol type: beer Patient Tobacco Use Status: Former Tobacco user Tobacco use type: Cigarette e-Cigarette/Vaping Use: Never Used Second Hand Smoke Exposure: No service: No Current occupational status: employed Current occupational exposures/hazards: No Cognitive needs: No Hearing needs: No Vision needs: No Female Reproductive History Menstrual Age of Menarche: 11 Questionnaire PHQ-9 Over the last 2 weeks, how often have you been bothered by any of the following problems? 1. Little interest or pleasure in doing things: several days 2. Feeling down, depressed, or hopeless: more than half the days 3. Trouble falling or staying asleep, or sleeping too much: not at all 4. Feeling tired or having little energy: nearly every day 5. Poor appetite or overeating: not at all 6. Feeling bad about yourself - or that you are a failure or have let yourself or your family down: not at all 7. Trouble concentrating on things, such as reading the newspaper or watching television: several days 8. Moving or speaking so slowly that other people could have noticed. Or the opposite - being so fidgety or restless that you have been moving around a lot more than usual: more than half the days 9. Thoughts that you would be better off or of hurting yourself in some way: not at all Total score: 9 Depression Screening Interpretation: Positive Depression Screening Follow-up: Existing condition and In treatment Depression Screening Done: Yes 80046 - PHQ-9 Billing: Yes Source: Developed by Drs. Freddy Simental, Tiff Bullock, Nolan Chaney and colleagues, with an educational kaci from [employer]. Thrive Questionnaire Date Thrive assessed: 08/29/22 AUDIT C Alcohol Use Questionnaire (AUDIT-C) 1. How often do you have a drink containing alcohol?: 2-4 times a month 2. How many drinks containing alcohol do you have on a typical day when you are drinking?: 3 or 4 3. How often do you have six or more drinks on one occasion?: Never Total Score: 3 Score Reviewed/Action Taken: Yes SINDHU-7 AMB Questionnaire SINDHU-7 Date SINDHU - 7 assessed: 08/29/22 Feeling nervous, anxious, or on edge: 3 = Nearly every day Not being able to stop or control worryin = Nearly every day Worrying too much about different things: 1 = Several days Trouble relaxin = Several days Being so restless that it is hard to sit still: 0 = Not at all Becoming easily annoyed or irritable: 2 = More than half the days Feeling afraid as if something awful might happen: 1 = Several days Total SINDHU-7 score (0-4 normal; 5-9 mild; 10-14 moderate; 15-21 severe): 11 Source: Developed by Drs. Freddy Simental, Tiff Bullock, Nolan Chaney and colleagues, with an educational kaci from [employer]. SINDHU-7 Assessment Billing SINDHU-7 Assessment Tool: SINDHU-7 Assessment 40884 Review of Systems Const Denies body aches, Denies chills, Denies fever(s) and Denies headache(s) Eyes Denies change in vision ENT Denies dizziness, Denies otalgia, Denies headache(s), Denies nasal discharge, Denies sinus pain and Denies sore throat Card Denies chest pain, Denies edema, Denies lightheadedness and Denies dyspnea Resp Denies cough, Denies dyspnea and Denies wheezing GI Denies abdominal pain, Denies constipation, Denies diarrhea, Denies nausea and Denies vomiting Denies dysuria Musc Reports as per HPI and Denies myalgias Skin/Breast Denies rash Neuro Denies dizziness and Denies headache(s) Aller/Immun Denies wheezing Physical exam (Primary Care) Vital Signs: Last Vital Signs Pulse 81 08/02/23 09:27 BP 116/86 08/02/23 09:27 Pulse Ox 99 08/02/23 09:27 Oxygen Delivery Method Room Air 08/02/23 09:27 BMI result Body Mass Index 28.2 Tobacco/Smoking Status: Tobacco use Status Tobacco use date assessed 08/02/23 08/02/23 09:28 Patient Tobacco Use Status Former Tobacco user 08/02/23 09:28 Tobacco use type Cigarette 08/02/23 09:28 e-Cigarette/Vaping Use Never Used 08/02/23 09:28 PHQ-9: PHQ-9 Score PHQ-9: Total score 9 08/02/23 09:41 Depression Screening Interpretation: Positive Depression Screening Follow-up: Existing condition and In treatment Thrive Assessment: Date of Thrive Assessment Date Thrive assessed 08/29/22 08/02/23 09:28 Const General: cooperative and no acute distress Orientation/consciousness: patient oriented x3 HENMT Head: Yes normocephalic and Yes atraumatic Ears: TM's normal bilaterally Face and sinus: Yes sinuses nontender Mouth: oropharynx normal and moist mucous membranes Throat: Yes posterior oropharynx normal Eyes General: appearance normal, both eyes and all related structures Pupils: Equal, round and reactive pupils present EOM: EOMs intact bilaterally Neck Neck: Yes normal visual inspection, Yes full ROM and Yes no lymphadenopathy Thyroid: Thyroid normal Resp Effort & Inspection: normal respiratory effort and able to speak in complete sentences Auscultation: clear to auscultation bilaterally, no crackles, no rales, no rhonchi and no wheezes Cardio Rate: regular rate Rhythm: regular rhythm Heart sounds: S1 normal heart sound present, S2 normal heart sound present and no murmurs GI Palpation (GI): Soft to palpation, not firm, nontender, no guarding, not rigid and no hepatosplenomegaly Auscultation: normal bowel sounds General: No CVA tenderness Back/Spine/Pelvis Back: No CVA tenderness Skin General skin exam: no rashes or lesions noted Neuro General: patient oriented x3 Cranial nerves: Yes Equal, round and reactive pupils present Gait exam (Neuro): Normal gait present Extrem General: Yes full ROM and No edema Assessment and Plan Assessment & Plan (1) Eye exam, routine: Code(s): Z01.00 - Encounter for examination of eyes and vision without abnormal findings (2) Neck pain: Code(s): M54.2 - Cervicalgia Plan: Stable with tramadol p.r.n. (3) Dizziness: Code(s): R42 - Dizziness and giddiness Plan: Stable with meclizine p.r.n. (4) Physical exam: Code(s): Z00.00 - Encounter for general adult medical examination without abnormal findings (5) Mild recurrent major depression: Code(s): F33.0 - Major depressive disorder, recurrent, mild Plan: Counseling referral (6) Anxiety: Code(s): F41.9 - Anxiety disorder, unspecified Plan: Stable with clonazepam b.i.d. p.r.n.-educated about dependency and memory loss Orders: Orders Rubeola IgG (Measles) Today Z00.00 - Encounter for general adult medical examination without abnormal findings Mumps Virus IgG Antibody Today Z.00 - Encounter for general adult medical examination without abnormal findings Lipid Panel Today Z. - Encounter for general adult medical examination without abnormal findings TSH reflex Free T4 Today Z00.00 - Encounter for general adult medical examination without abnormal findings Rubella IgG Antibody Today Z. - Encounter for general adult medical examination without abnormal findings Referrals Ophthalmology Referral Z01.00 - Encounter for examination of eyes and vision without abnormal findings Counseling Referral F33.0 - Major depressive disorder, recurrent, mild, F41.9 - Anxiety disorder, unspecified Medications: Refilled meclizine 25 mg PO BID 7 days PRN 14 tabs 0RF dizziness baclofen 10 mg PO TID 20 tabs 0RF ibuprofen 600 mg PO Q6H PRN 30 tabs 0RF pain Coding Level of Care Code Est Pt Prev Care 18-39y(68257) Diagnoses Eye exam, routine Z01.00 Neck pain M54.2 Dizziness R42 Physical exam Z00.00 Mild recurrent major depression F33.0 Anxiety F41.9 Additional Codes SINDHU-7 Assessment Billing - SINDHU-7 Assessment Tool: SINDHU-7 Assessment 92131 ([id number])
== END 2023-08-02 10:06 | disposition home or self-care (01) ==
PROVIDERS: PCP Internal Medicine; Visit Provider Nurse Practitioner Family
DX: Z00.00 Encounter for general adult medical examination without abnormal findings (principal); F33.0 Major depressive disorder, recurrent, mild; M54.2 Cervicalgia; R42 Dizziness and giddiness; F41.9 Anxiety disorder, unspecified
CPT/HCPCS: 96127; 99395

== ENCOUNTER 2023-10-13 13:13 | Outpatient (REF) | payer OTHER, SELFPAY ==
[2023-10-13 14:33] LABS: Cholesterol 185 mg/dL (<200); HDL Cholesterol 59 mg/dL (>40); LDL Cholesterol Calculated 113 mg/dL (<100); Triglycerides 66 mg/dL (<150)
[2023-10-16 22:03] LABS: Rubeola IgG (Measles) <13.50 AU/mL
[2023-10-17 05:49] LABS: Rubella IgG Antibody 8.79 Index
== END 2023-10-13 13:14 | disposition home or self-care (01) ==
LOC: HO.LAB 13:13
PROVIDERS: PCP Internal Medicine; Visit Provider Nurse Practitioner Family
DX: Z00.00 Encounter for general adult medical examination without abnormal findings (principal)
CPT/HCPCS: 36415; 80061; 84443; 86735; 86762; 86765

== ENCOUNTER 2023-12-07 01:34 | Emergency (ER) | payer OTHER, SELFPAY ==
[2023-12-07 01:42] VITALS: BP 115/69; PULSE 72; RESP 20; TEMP 36.1; O2SAT 97; BMI 28.8
== END 2023-12-07 07:33 | disposition left against medical advice (07) ==
PROVIDERS: Emergency Provider Emergency Medicine; PCP Internal Medicine
DX: R42 Dizziness and giddiness (principal)
CPT/HCPCS: 99281

== ENCOUNTER 2023-12-07 13:32 | Outpatient (AMB) | payer OTHER, SELFPAY ==
[2023-12-07 13:56] VITALS: BP 122/70; PULSE 70; TEMP 36.2; O2SAT 97
--- NOTE | 2023-12-07 13:56 | AM.OFFWIN_ITS ---
Intake Vital Signs 12/07/23 13:56 Height 5 ft 1 in Weight 159 lb BMI 30.0 BP 122/70 Blood Pressure Location Lt brachial Position Sitting Pulse 70 Pulse Source Pulse Oximeter Temp 97.1 F Temp Source Temporal Artery Scan Pulse Oximetry (%) 97 Oxygen Delivery Method Room Air Intake Visit Reasons: EP Dizzy, lump on wrist Intake Note: pt is here today for dizzy and lump on wrist started 2 months ago started as soft pocket and dizzy so she has to hold on to things now Patient Tobacco Use Status: Former Tobacco user Allergies codeine [CODEINE] Allergy (Intermediate, Verified 12/07/23 14:14) TACHYCARDIA Do you need a note to return to daycare/school/sports/work: Yes HPI EP Dizzy, lump on wrist HPI Details 38 year old female patient presents toda y with 2 primary complaints. She has a lump on the top of her left wrist which has been present for about 1 month. It has not painful, however she does not like the way it looks. She also has ongoing episodes of dizziness. These increase with position change but she states they can happen out of nowhere . She was previously prescribed meclizine for this, however is fearful of taking it due to possible side effects. She denies any episodes of dizziness where she has lost consciousness or had vision changes. States she is drinking a lot of water every day, and drinks maybe 1 caffeinated beverage per day. No recent changes in medications or diet. [facility] Medical History Fibrocystic breast Blurry vision Family history of gastric cancer Physical exam Mild recurrent major depression Periumbilical mass COVID-19 Anxiety Polyarthralgia History of asthma History of depression History of panic attacks Hx of anxiety disorder Surgical History Periumbilical hernia Hx of section Family History Maternal Aunt History of breast cancer Sister Stomach cancer, Onset Age: 34 Father No problems noted. Mother No problems noted. Family/Other FH: mental illness Social History Housing: Apartment Alcohol intake: current Alcohol intake frequency: holidays/special occasions only Alcohol type: beer Patient Tobacco Use Status: Former Tobacco user Tobacco use type: Cigarette e-Cigarette/Vaping Use: Never Used Second Hand Smoke Exposure: No service: No Current occupational status: employed Current occupational exposures/hazards: No Cognitive needs: No Hearing needs: No Vision needs: No Female Reproductive History Menstrual Age of Menarche: 11 Review of Systems Const All systems reviewed & are unremarkable except as noted in HPI and below Physical Exam Vital Signs: Last Vital Signs Temp 97.1 F 12/07/23 13:56 Pulse 70 12/07/23 13:56 BP 122/70 12/07/23 13:56 Pulse Ox 97 12/07/23 13:56 Oxygen Delivery Method Room Air 12/07/23 13:56 BMI result Body Mass Index 30.0 Const General: cooperative, healthy appearing, comfortable and no acute distress HEENT Head: Yes normal to inspection Ears: hearing grossly normal bilaterally, external ears normal and TM's normal bilaterally General nose exam: Normal external nose present Face and sinus: Yes normal facial exam Eyes General: appearance normal, both eyes and all related structures Pupils: Equal, round and reactive pupils present and Pupil accommodation reflex normal Direct Ophthalmoscopy: normal light reflex Neck Neck: Yes no lymphadenopathy Resp Effort & Inspection: normal respiratory effort Auscultation: clear to auscultation bilaterally Cardio Rate: regular rate Rhythm: regular rhythm Skin General skin exam: no rashes or lesions noted Neuro Cranial nerves: Yes Equal, round and reactive pupils present Extrem Other: large ganglion cyst dorsal aspect of right wrist. No pain with palpation. Slightly moveable. Psych Appearance: grossly normal Mental Status: mental status grossly normal Speech and movement: Normal speech and movement present Assessment & Plan Assessment & Plan (1) Dizziness: Code(s): R42 - Dizziness and giddiness Plan: I am going to obtain CBC and fasting BMP on patient. I encouraged her try the previously prescribed meclizine to see if this provides her any benefit. Encouraged continued adequate hydration and to not change positions rapidly, for example sitting to standing. I will f/u with her regarding labs once these are available. She sees Dr. Calvert for PCP, who she can f/u with as needed as well. She agrees to plan. (2) Ganglion cyst of dorsum of left wrist: Code(s): M67.432 - Ganglion, left wrist Plan: We discussed that ganglion cysts do have a possibility of resolving without intervention. We also discussed possible treatment methods with needle aspiration or surgical removal. She is somewhat fearful of these, however would like general surgery referral to discuss options. I have entered a referral. Orders: Orders Basic Metabolic Panel Fasting Today R42 - Dizziness and giddiness Complete Blood Count Auto Diff Today R42 - Dizziness and giddiness Referrals General Surgery Referral M67.432 - Ganglion, left wrist Coding Level of Care Code Est Pt Level 4 (71355) Diagnoses Dizziness R42 Ganglion cyst of dorsum of left wrist M67.432
== END 2023-12-07 14:39 | disposition home or self-care (01) ==
PROVIDERS: PCP Internal Medicine; Visit Provider Nurse Practitioner Family
DX: R42 Dizziness and giddiness (principal); M67.432 Ganglion, left wrist
CPT/HCPCS: 99214

== ENCOUNTER 2023-12-08 07:24 | Outpatient (REF) | payer OTHER, SELFPAY ==
[2023-12-08 10:33] LABS: MANUAL DIFF FLAG NO
[2023-12-08 10:52] LABS: Basophils Percent Auto 0.4 % (0-2); Eosinophils Absolute Auto 0.3 X10*3/uL (0.0-0.4); Eosinophils Percent Auto 7.4 % (0-4); Imm Gran Abs Auto 0.01 X10*3/uL (0.00-0.03); Imm Gran Pct Auto 0.2 % (0.0-0.4); Lymphocytes Absolute Auto 1.6 X10*3/uL (1.2-4.9); Lymphocytes Percent Auto 34.6 % (20-40); Mean Corpuscular HGB Conc 31.6 g/dl (31.0-35.0); Mean Corpuscular Hemoglobin 25.9 pg (27.0-33.0); Mean Corpuscular Volume 82.1 fL (80.0-98.0); Mean Platelet Volume 11.5 fL (9.4-12.3); Monocytes Absolute Auto 0.3 X10*3/uL (0.1-1.2); Monocytes Percent Auto 5.7 % (2-11); Neutrophils Absolute Auto 2.4 x10*3/uL (2.0-8.3); Neutrophils Percent Auto 51.7 % (45-73); Platelet Count 297 X10*3/uL (160-400); Red Blood Count 4.63 X10*6/uL (4.20-5.50); Red Cell Distribution Width 14.1 % (11.0-16.0); White Blood Count 4.6 X10*3/uL (4.8-10.8)
[2023-12-08 11:13] LABS: Anion Gap 9 (12-20); Blood Urea Nitrogen 10 mg/dL (9-16); Carbon Dioxide 25 mmol/L (22-29); Chloride 110 mmol/L (96-108); Estimated Glomerular Filt Rate > 60; Glucose Fasting 97 mg/dL (60-99); Potassium 3.4 mmol/L (3.3-5.1); Sodium 141 mmol/L (135-145)
== END 2023-12-08 07:25 | disposition home or self-care (01) ==
LOC: HO.HMGCLDS 07:24
PROVIDERS: PCP Internal Medicine; Visit Provider Nurse Practitioner Family
DX: R42 Dizziness and giddiness (principal)
CPT/HCPCS: 36415; 80048; 85025

== ENCOUNTER 2024-01-17 07:50 | Outpatient (AMB) | payer OTHER, SELFPAY ==
--- NOTE | 2024-01-17 07:54 | A.OFFVIS_ITS ---
Vital Signs 01/17/24 07:59 Height 5 ft 1 in Weight 151 lb BMI 28.5 BP 111/76 Blood Pressure Location Rt brachial Position Sitting Pulse 73 Intake Visit Reasons: ? hernia Intake Note: Patient called and scheduled today's appointment for cyst on Rt wrist concerns. Present for yrs. Patient c/o: tenderness at times. 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 She has had this many years time. It is increasing in size, become more symptomatic. She would like to have removed. Chart was reviewed and patient evaluated [facility] Medical History Fibrocystic breast Blurry vision Family history of gastric cancer Physical exam Mild recurrent major depression Periumbilical mass COVID-19 Anxiety Polyarthralgia History of asthma History of depression History of panic attacks Hx of anxiety disorder Surgical History Periumbilical hernia Hx of section Family History Maternal Aunt History of breast cancer Sister Stomach cancer, Onset Age: 34 Father No problems noted. Mother No problems noted. Family/Other FH: mental illness Social History Housing: Apartment Alcohol intake: current Alcohol intake frequency: holidays/special occasions only Alcohol type: beer Patient Tobacco Use Status: Former Tobacco user Tobacco use type: Cigarette e-Cigarette/Vaping Use: Never Used Second Hand Smoke Exposure: No service: No Current occupational status: employed Current occupational exposures/hazards: No Cognitive needs: No Hearing needs: No Vision needs: No Female Reproductive History Menstrual Age of Menarche: 11 Physical Exam Vital Signs: Last Vital Signs Pulse 73 01/17/24 07:59 BP 111/76 01/17/24 07:59 BMI result Body Mass Index 28.5 Chest Other: Chest breath sounds bilaterally, HS 1 in 2 GI Other: Abdomen is soft, benign Extrem Other: Proximally 3 x 2 cm very large dorsum left wrist ganglion. Extremely otherwise neurovascularly intact. Assessment & Plan Assessment & Plan (1) Ganglion cyst of dorsum of left wrist: Code(s): M67.432 - Ganglion, left wrist Category: Surgical Plan Risks, benefits, alternatives of excision of dorsum left wrist ganglion were reviewed with the patient and included but not limited to bleeding, infection, recurrence, numbness, pain, scarring and the patient wished to proceed. All questions answered. It was emphasized to the patient that she will need anywhere from 4-6 weeks to f ully heal from this. She should avoid strenuous activities during this time. Postoperatively, she will be given a wrist immobilizer for the 1st few weeks. Coding Level of Care Code New Pt Level 5 (63383) Diagnoses Ganglion cyst of dorsum of left wrist M67.432
[2024-01-17 07:59] VITALS: BP 111/76; PULSE 73; BMI 28.5
== END 2024-01-17 08:16 | disposition home or self-care (01) ==
PROVIDERS: PCP Internal Medicine; Visit Provider Surgery
DX: M67.432 Ganglion, left wrist (principal)
CPT/HCPCS: 99205

== ENCOUNTER → 2024-01-17 07:50 | Outpatient (BNVA) | payer OTHER, SELFPAY | PROVIDERS: PCP Internal Medicine; Visit Provider Surgery | DX: M67.432 Ganglion, left wrist (principal) | CPT/HCPCS: 99202 ==

== ENCOUNTER 2024-01-24 14:40 | Outpatient (AMB) | payer OTHER, SELFPAY ==
--- NOTE | 2024-01-24 15:08 | MHC.OFFWIV ---
Intake Vital Signs 01/24/24 15:13 Height 5 ft 1 in Weight 151 lb BMI 28.5 BP 112/74 Blood Pressure Location Rt brachial Position Sitting Pulse 72 Pulse Source Pulse Oximeter Pulse Oximetry (%) 98 Intake Visit Reasons: EP lft wrist lump pain Intake Note: pt is here for left wrist pain Patient Tobacco Use Status: Former Tobacco user Allergies codeine [CODEINE] Allergy (Intermediate, Verified 01/24/24 15:13) TACHYCARDIA Do you need a note to return to daycare/school/sports/work: No HPI HPI Comments History of Present Illness Details 38 y/o female presents today stating that her ganglion has become much smaller and she is concerned the fluid would be dangerous for her. She has a surgical appointment pending for ganglion excision. She denies any pain, erythema or other swelling [facility] Medical History Fibrocystic breast Blurry vision Family history of gastric cancer Physical exam Mild recurrent major depression Periumbilical mass COVID-19 Anxiety Polyarthralgia History of asthma History of depression History of panic attacks Hx of anxiety disorder Surgical History Periumbilical hernia Hx of section Family History Maternal Aunt History of breast cancer Sister Stomach cancer, Onset Age: 34 Father No problems noted. Mother No problems noted. Family/Other FH: mental illness Social History Housing: Apartment Alcohol intake: current Alcohol intake frequency: holidays/special occasions only Alcohol type: beer Patient Tobacco Use Status: Former Tobacco user Tobacco use type: Cigarette e-Cigarette/Vaping Use: Never Used Second Hand Smoke Exposure: No service: No Current occupational status: employed Current occupational exposures/hazards: No Cognitive needs: No Hearing needs: No Vision needs: No Female Reproductive History Menstrual Age of Menarche: 11 Review of Systems Const All systems reviewed & are unremarkable except as noted in HPI and below Physical Exam Vital Signs: Last Vital Signs Pulse 72 01/24/24 15:13 BP 112/74 01/24/24 15:13 Pulse Ox 98 06/05/24 15:13 BMI result Body Mass Index 28.5 Const General: healthy appearing and anxious Extrem Right upper extremity: wrist Details: abnormal to inspection, tenderness and swelling (ganglion present) Assessment & Plan Assessment & Plan (1) Ganglion cyst of dorsum of left wrist: Code(s): M67.432 - Ganglion, left wrist Plan: The patient was reassured the ganglionic fluid was safe and she will present to surgery appointment for evaluation and excision Plan see plan Coding Level of Care Code Est Pt Level 3 (94128) Diagnoses Ganglion cyst of dorsum of left wrist M67.432
[2024-01-24 15:13] VITALS: BP 112/74; PULSE 72; O2SAT 98; BMI 28.5
== END 2024-01-24 15:46 | disposition home or self-care (01) ==
PROVIDERS: PCP Internal Medicine; Visit Provider Physician Assistant Medical
DX: M67.432 Ganglion, left wrist (principal)
CPT/HCPCS: 99213

== ENCOUNTER 2024-02-15 06:17 | Day surgery (SDC) | payer OTHER, SELFPAY ==
[2024-02-13 08:15] VITALS: BMI 28.5
--- NOTE | 2024-02-13 12:21 | P.CONAN_ITS ---
Documented by User: Jordyn Colvin NP 02/13/24 12:22 HPI - Anesthesia Eval Consult details Narrative: 38yo F for Left Wide Local Excision Cyst Dorsum Rrist Ganglion PMFSH Active Problems Active Problems: All Active Problems Ganglion cyst of dorsum of left wrist (Acute) Eye exam, routine (Acute) Endometrial polyp (Acute) Neck pain (Acute) Dizziness (Acute) Fibrocystic breast (Acute) Vulvovaginitis (Acute) Pelvic pain (Acute) Breast lump in upper outer quadrant (Acute) Costovertebral angle tenderness (Acute) Blurry vision (Acute) Family history of gastric cancer (Acute) Physical exam (Acute) Vaginitis (Acute) Mild recurrent major depression (Acute) Periumbilical mass (Acute) COVID-19 (Acute) Anxiety (Acute) Polyarthralgia (Acute) Family planning advice (Acute) Breast lump (Acute) Well woman exam (Acute) Abnormal uterine bleeding (AUB) (Acute) BV (bacterial vaginosis) (Acute) Pelvic pain in female (Acute) Past Medical History Medical History Fibrocystic breast Blurry vision Family history of gastric cancer Physical exam Mild recurrent major depression Periumbilical mass COVID-19 Anxiety Polyarthralgia History of asthma History of depression History of panic attacks Hx of anxiety disorder Family History Family History Maternal Aunt History of breast cancer Sister Stomach cancer, Onset Age: 34 Father No problems noted. Mother No problems noted. Family/Other FH: mental illness Family history of problems with anesthesia: No Surgical History Surgical History Periumbilical hernia Hx of section History of Problems with Anesthesia: No Social History Social History Housing: Apartment Alcohol intake: current Alcohol intake frequency: holidays/special occasions only Alcohol type: beer Patient Tobacco Use Status: Former Tobacco user Tobacco use type: Cigarette e-Cigarette/Vaping Use: Never Used Second Hand Smoke Exposure: No Use of substances other than those prescribed or required for medical reasons: No Are you DNR?: No Advance Directives: No Advance Directives Information Provided: Yes service: No Current occupational status: employed Current occupational exposures/hazards: No Cognitive needs: No Hearing needs: No Vision needs: No Meds Allergies Allergy/AdvReac Type Severity Reaction Status Date / Time codeine [CODEINE] Allergy Intermediate TACHYCARDIA Verified 01/24/24 15:13 Home Medications ?Medication ?Instructions ?Recorded ?Confirmed ?Last Taken ?Type baclofen 10 mg tablet 10 mg PO TID PRN Pain 02/15/24 02/15/24 Unknown History Exam Height,Weight and Vital Signs: Height 5 ft 1 in Weight 68.492 kg Pertinent Lab Results Pertinent Lab Results: Laboratory Tests 12/08/23 07:33 WBC 4.6 L Hgb 12.0 Hct 38.0 Plt Count 297 D Sodium 141 Potassium 3.4 Chloride 110 H Carbon Dioxide 25 BUN 10 Creatinine 0.67 Assessment and Plan Assessment Anesthesia Assessment: Chart Reviewed Final Anesthetic Review Family History of Problems with Anesthesia: No History of Problems with Anesthesia: No Documented by User: Rashad Wood MD 02/15/24 07:52 [facility] Past Medical History Medical History Fibrocystic breast Blurry vision Family history of gastric cancer Physical exam Mild recurrent major depression Periumbilical mass COVID-19 Anxiety Polyarthralgia History of asthma History of depression History of panic attacks Hx of anxiety disorder Family History Family History Maternal Aunt History of breast cancer Sister Stomach cancer, Onset Age: 34 Father No problems noted. Mother No problems noted. Family/Other FH: mental illness Surgical History Surgical History Periumbilical hernia Hx of section Social History Social History Housing: Apartment Alcohol intake: current Alcohol intake frequency: holidays/special occasions only Alcohol type: beer Patient Tobacco Use Status: Former Tobacco user Tobacco use type: Cigarette e-Cigarette/Vaping Use: Never Used Second Hand Smoke Exposure: No Use of substances other than those prescribed or required for medical reasons: No Are you DNR?: No Advance Directives: No Advance Directives Information Provided: Yes service: No Current occupational status: employed Current occupational exposures/hazards: No Cognitive needs: No Hearing needs: No Vision needs: No Meds Allergies Allergy/AdvReac Type Severity Reaction Status Date / Time codeine [CODEINE] Allergy Intermediate TACHYCARDIA Verified 01/24/24 15:13 Home Medications ?Medication ?Instructions ?Recorded ?Confirmed ?Last Taken ?Type baclofen 10 mg tablet 10 mg PO TID PRN Pain 02/15/24 02/15/24 Unknown History Exam Airway Mallampati Class: II TM Dist: >3cm Neck ROM: Full Assessment and Plan Assessment Anesthesia Assessment: Anesthesia Plan Discussed Final Anesthetic Review NPO: Yes ASA Class: II Final Preanesthetic Review: No Changes in Pt Med Stat, Meds/Allgs Chart Reviewed, Consent Obtained/Reviewed and Anes Risks/Benef Reviewed Patient Risk: Low Procedure Risk: Low Anesthetic Plan Anesthetic Plan: TIVA Disposition: Standard PACU
--- NOTE | 2024-02-14 11:27 | MHC.SHP ---
Pre-Procedural Eval Section A - 24 Hr Update-Section A only Date of Service: 02/15/24 The patient is an INPATIENT: No Changes since office visit: No Cold of Flu in the past 2 weeks, No New Medical Problems, No Changes in Medication and No Patient answered all questions Section B - Complete if H&P > 30 days Chief Complaint: Ganglion, left wrist Allergies: Allergies Allergy/AdvReac Type Severity Reaction Status Date / Time codeine [CODEINE] Allergy Intermediate TACHYCARDIA Verified 01/24/24 15:13 Plan I have reviewed the history and physical and performed a pertinent physical examination on my patient. No changes have occurred unless specified. Time Spent With Patient Time: Total time managing care of this patient today ____ minutes.
[2024-02-15 06:30] VITALS: BMI 27.0
[2024-02-15 06:57] VITALS: BP 116/68; PULSE 72; RESP 16; TEMP 36.1; O2SAT 100
[2024-02-15] MEDS: Lactated Ringers 1,000 ML 100 ML IVCONT (06:58)
[2024-02-15 07:26] LABS: UPreg QC Valid YES; Urine Pregnancy NEGATIVE (NEGATIVE)
--- NOTE | 2024-02-15 09:10 | P.OP_ITS ---
Operative Note Operative Note Date of Service: 02/15/24 Narrative: Preoperative diagnosis: [] Dorsum left wrist ganglion cyst Postop diagnosis: [] The same Procedure [] incision dorsum left wrist ganglion cyst Surgeon: [] Jerrell Shingle Shearing Machine Operator: [] Laura Type of Anesthesia: [] MAC with local Indication for surgery 3 x 2 cm dorsum left wrist ganglion cyst oximally Procedure; Patient brought to the operating room, placed on operative table in supine position, after an adequate level of MAC anesthesia was induced, the left wrist and hand were prepped and draped in usual sterile fashion. Using a transverse incision over the dorsum of the left mid wrist [id number] down cyst, this carried down through skin, subcutaneous tissue, where the ganglion cyst was identified and circumferentially dissected down using blunt, sharp, and Bovie dissection to the carpal bone. Cyst was excised. Base /root of was cauterized using Bovie at its base in the carpal bones. Wound was irrigated, secured hemostasis, and closed in the following manner; subcutaneous tissue was reapproximated using interrupted 3-0 Vicryl sutures. Skin was closed using interrupted inverted dermal 3-0 Vicryl sutures followed by Steri-Strips and sterile dressings. Wound was infiltrated 0.5% Marcaine/1% lidocaine at the beginning at the end of the case. Hand was grossly neurovascular intact at completion of the case. Wrist was placed in a wrist immobilizer at completion. Specimen sent to pathology Sponge, needle, and instrument counts reported correct. Patient tolerated the procedure well and emerged from anesthesia stable condition. EBL minimal
[2024-02-15 09:11] VITALS: BP 130/80; PULSE 62; RESP 15; TEMP 36.6; O2SAT 98
[2024-02-15 09:26] VITALS: BP 132/82; PULSE 63; RESP 16; O2SAT 100
[2024-02-15 09:41] VITALS: BP 138/87; PULSE 60; RESP 16; TEMP 36.1; O2SAT 100
== END 2024-02-15 10:16 | disposition home or self-care (01) ==
PROVIDERS: Nurse Practitioner; PCP Internal Medicine; Visit Provider Surgery
PROC: (CPT 25111; principal; 2024-02-15 08:40)
DX: M67.432 Ganglion, left wrist (principal); F33.0 Major depressive disorder, recurrent, mild; N60.19 Diffuse cystic mastopathy of unspecified breast; M25.50 Pain in unspecified joint; F41.9 Anxiety disorder, unspecified; Z88.5 Allergy status to narcotic agent; Z87.891 Personal history of nicotine dependence
CPT/HCPCS: 25111; 81025; 88304; J0131; J0690; J1100; J2250; J2405; J2704; J3010

== ENCOUNTER → 2024-02-15 06:17 | Outpatient (BNV) | payer OTHER, SELFPAY | PROVIDERS: PCP Internal Medicine; Visit Provider Surgery | DX: M67.432 Ganglion, left wrist (principal) | CPT/HCPCS: 25111 ==

== ENCOUNTER 2024-02-26 10:26 | Outpatient (AMB) | payer OTHER, SELFPAY ==
--- NOTE | 2024-02-26 10:34 | MHC.OFFVIS ---
Intake Visit Reasons: S/P WLE dorsum Lt wrist ganglion Intake Note: Patient here s/p WLE dorsum Lt wrist ganglion cyst. Patient c/o: redness, tenderness along scarline. SX: 02-15-2024. 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 She presents with her daughter. She has incisional discomfort which is improving. She has not been wearing a wrist splint. [facility] Medical History Fibrocystic breast Blurry vision Family history of gastric cancer Physical exam Mild recurrent major depression Periumbilical mass COVID-19 Anxiety Polyarthralgia History of asthma History of depression History of panic attacks Hx of anxiety disorder Surgical History Periumbilical hernia Hx of section Family History Maternal Aunt History of breast cancer Sister Stomach cancer, Onset Age: 34 Father No problems noted. Mother No problems noted. Family/Other FH: mental illness Social History Housing: Apartment Alcohol intake: current Alcohol intake frequency: holidays/special occasions only Alcohol type: beer Patient Tobacco Use Status: Former Tobacco user Tobacco use type: Cigarette e-Cigarette/Vaping Use: Never Used Second Hand Smoke Exposure: No service: No Current occupational status: employed Current occupational exposures/hazards: No Cognitive needs: No Hearing needs: No Vision needs: No Female Reproductive History Menstrual Age of Menarche: 11 Physical Exam Extrem Other: Wound clean dry and intact. Extremities grossly neurovascularly intact. Assessment & Plan Assessment & Plan (1) Postop check: Code(s): Z09 - Encounter for follow-up examination after completed treatment for conditions other than malignant neoplasm Category: Surgical Plan Patient has been given local instructions including avoiding using her extremity, wearing a wrist splint, ice of the wound, and we will otherwise follow-up p.r.n. patient will be give to commenced work in 1 week's time with 3 weeks light duty. All questions answered. Coding Level of Care Code Global (07009) Diagnoses Postop check Z09
== END 2024-02-26 10:48 | disposition home or self-care (01) ==
PROVIDERS: PCP Internal Medicine; Visit Provider Surgery
DX: Z09 Encounter for follow-up examination after completed treatment for conditions other than malignant neoplasm (principal)
CPT/HCPCS: 99024

== ENCOUNTER → 2024-02-26 10:26 | Outpatient (BNVA) | payer OTHER, SELFPAY | PROVIDERS: PCP Internal Medicine; Visit Provider Surgery | DX: Z09 Encounter for follow-up examination after completed treatment for conditions other than malignant neoplasm (principal) | CPT/HCPCS: 99212 ==

== ENCOUNTER 2024-05-04 06:31 | Emergency (ER) | payer OTHER, SELFPAY ==
--- NOTE | ~2024-05-04 | XR_ITS ---
EXAMINATION: XR WRIST, LEFT CLINICAL INFORMATION: Injury COMPARISON: None available. TECHNIQUE: PA, lateral, and oblique views of the left wrist. FINDINGS: Thin linear lucency through the distal radius without displaced fracture. Carpal rows are maintained. No carpal bone fracture. No significant degenerative changes of the wrist. Visualized metacarpals are unremarkable. No significant soft tissue swelling. XR/XR wrist LT 2V IMPRESSION: Thin linear lucency through the distal radius. A nondisplaced fracture is within the differential, however, there is no overlying soft tissue swelling. Correlation with point tenderness recommended. Follow-up radiographs can be obtained to evaluate for callus formation if concern for fracture. Electronically signed by: Mohinder Millard MD 05/04/2024 08:28 AM EDT
[2024-05-04 06:33] VITALS: BP 123/81; PULSE 73; RESP 20; TEMP 36.7; O2SAT 96; BMI 28.7
--- NOTE | 2024-05-04 07:32 | ED_ITS ---
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 She says that yesterday at child was getting away and she ran after the child and slipped on a wet floor that had just been marked. She landed primarily on her back and her left side. She comes today for evaluation of pain on most of the left side of her body, particularly in the left wrist. However in addition to pain in the left wrist she also describes pain in the left shoulder, the left side of her torso generally, the left hip area, and the left leg generally. She did not hit her head. She has pain moving the left wrist. Related Data Home Medications ?Medication ?Instructions ?Recorded ?Confirmed baclofen 10 mg tablet 10 mg PO TID PRN Pain 02/15/24 02/26/24 Previous Rx's ?Medication ?Instructions ?Recorded ibuprofen 600 mg tablet 600 mg PO Q6H PRN pain #30 tabs 08/02/23 meclizine 25 mg tablet 25 mg PO BID PRN dizziness 7 days 08/02/23 #14 tabs hydrocodone 5 mg-acetaminophen 325 1 tab PO Q4-6H PRN pain #30 tabs 02/15/24 mg tablet hydrocodone 5 mg-acetaminophen 325 1 tab PO Q4-6H PRN pain #30 tabs 02/16/24 mg tablet clonazepam 1 mg tablet 1 mg PO BID PRN anxiety 30 days 04/02/24 #60 tabs tramadol 50 mg tablet 50 mg PO BID PRN pain 30 days #60 04/02/24 tabs Allergies Allergy/AdvReac Type Severity Reaction Status Date / Time codeine [CODEINE] Allergy Intermediate TACHYCARDIA Verified 05/04/24 06:35 Review of Systems Review of Systems: Yes all other systems are reviewed and are negative PMFSH Past Medical History Medical History Fibrocystic breast Blurry vision Family history of gastric cancer Physical exam Mild recurrent major depression Periumbilical mass COVID-19 Anxiety Polyarthralgia History of asthma History of depression History of panic attacks Hx of anxiety disorder Surgical History Periumbilical hernia Hx of section Family History Family History Maternal Aunt History of breast cancer Sister Stomach cancer, Onset Age: 34 Father No problems noted. Mother No problems noted. Family/Other FH: mental illness Social History Social History Housing: Apartment Alcohol intake: current Alcohol intake frequency: holidays/special occasions only Alcohol type: beer Patient Tobacco Use Status: Former Tobacco user Tobacco use type: Cigarette e-Cigarette/Vaping Use: Never Used Second Hand Smoke Exposure: No service: No Current occupational status: employed Current occupational exposures/hazards: No Cognitive needs: No Hearing needs: No Vision needs: No Physical Exam Vital Signs: Vital Signs: Last Vital Signs Temp 98.0 F 05/04/24 09:39 Pulse 63 05/04/24 09:39 Resp 20 05/04/24 09:39 BP 123/79 05/04/24 09:39 Pulse Ox 98 05/04/24 09:39 O2 Del Method Room Air 05/04/24 09:39 BMI result Body Mass Index 28.7 Const: Other: The patient is awake and alert. She does not appear in distress or acutely ill. She looks as if she is an ordinarily healthy 38-year-old. HEENT: Other: No signs of trauma to the head or the face. Eyes: Other: Pupils are round equal, conjunctivae clear, extraocular movements intact. Neck: Other: No posterior midline C-spine tenderness. Good range of motion of the neck without significant discomfort. Resp: Effort & Inspection: normal respiratory effort Auscultation: clear to auscultation bilaterally Cardio: Rate: regular rate Rhythm: regular rhythm Heart sounds: S1 normal heart sound present and S2 normal heart sound present Back/Spine/Pelvis: Other: No significant midline tenderness in the thoracic or lumbar spine. Skin: Other: Skin is intact. No bruising. No soft tissue swelling. Neuro: Other: The patient is awake and alert with a normal mental status. Cranial nerves are intact. She has intact strength sensation in the extremities. Extrem: Other: The patient seems to have tenderness of the left wrist. This is mostly on the dorsum of the wrist. No volar tenderness. No deformity. No soft tissue swel ling. No snuffbox tenderness. She seems to have pain with range of motion of the wrist but is able to move it through a reasonably good range of motion. Other joints do not seem significantly tender in the left elbow, left shoulder, left hip, or left knee. Medications Administered Discontinued Medications Generic Name Dose Route Start Last Admin Trade Name Jimena PRN Reason Stop Dose Admin Ketorolac Tromethamine 30 mg 05/04/24 08:20 05/04/24 08:38 Ketorolac Tromethamine 30 Mg/Ml Vial IM 05/04/24 08:21 30 mg ONCE ONE Administration Medical Decision Making Medical Decision Making [facility] Narrative: The patient is a 38-year-old female who presents the day following a fall when she slipped on a wet surface. She landed primarily on her back and left side. Her primary injury seems to be her left wrist. Not seem to have significant injuries elsewhere in the body. She did not hit her head. Wrist exam shows no deformity or soft tissue swelling. No snuffbox tenderness. There is tenderness to the dorsum of the wrist. Reduced range of motion of the wrist. An x-ray of the left wrist shows no soft tissue swelling or deformity but was read as showing a thin linear lucency through the distal radius which could potentially represent a nondisplaced fracture. Given the lack of soft tissue swelling I think fracture is probably unlikely although not completely ruled out today. The patient will be placed in a Velcro splint and should follow up with Orthopedics/hand surgery for further evaluation in the next several days. She was given a work note. Discharge Plan Discharge Clinical Impression: Left wrist sprain Patient Disposition: Home, Self-Care Instructions: Wrist Injury (ED) Additional Instructions: Your x-ray has been read as showing a possible slight break in the radius bone at the wrist. Overall I think it is probable that you do not have a fracture but we will not be able to be certain today. Please wear the splint until you follow up with the orthopedic office. Please plan on calling the orthopedic office on Monday morning for a prompt follow up appointment. Please plan on using acetaminophen and ibuprofen as needed for pain. Keep your left wrist elevated to prevent swelling or worsening pain. Return to the emergency room if worse. Prescriptions: No Action clonazepam 1 mg tablet 1 mg PO BID PRN (Reason: anxiety) 30 Days Qty: 60 0RF tramadol 50 mg tablet 50 mg PO BID PRN (Reason: pain) 30 Days Qty: 60 0RF baclofen 10 mg tablet 10 mg PO TID PRN (Reason: Pain) hydrocodone-acetaminophen 5-325 mg tablet 1 tab PO Q4-6H PRN (Reason: pain) Qty: 30 0RF Rx Instructions: Partial Fill upon patient request. hydrocodone-acetaminophen 5-325 mg tablet 1 tab PO Q4-6H PRN (Reason: pain) Qty: 30 0RF Rx Instructions: Partial Fill upon patient request. ibuprofen 600 mg tablet 600 mg PO Q6H PRN (Reason: pain) Qty: 30 0RF meclizine 25 mg tablet 25 mg PO BID PRN (Reason: dizziness) 7 Days Qty: 14 0RF Referrals: [facility] Orthopedic Surgeons [Provider Group] (Left wrist injury, X-ray equivocal for possible non-displaced left distal radius fracture) Stand Alone Forms: Work/School Release Interventions: ED Discharge Assessment Last Done: 05/04/24 09:39 Discharge Date/Time: 05/04/24 09:41 Print Language: Greenlandic
[2024-05-04 08:18] VITALS: BP 123/81; PULSE 73; RESP 20; TEMP 36.7; O2SAT 96
[2024-05-04 08:26] VITALS: BP 123/79; PULSE 63; RESP 20; TEMP 36.7; O2SAT 98
[2024-05-04] MEDS: Ketorolac Tromethamine 30 MG/ML VIAL IM (08:38)
[2024-05-04 09:39] VITALS: BP 123/79; PULSE 63; RESP 20; TEMP 36.7; O2SAT 98
== END 2024-05-04 09:41 | disposition home or self-care (01) ==
PROVIDERS: Emergency Provider Emergency Medicine; PCP Internal Medicine
DX: S63.502A Unspecified sprain of left wrist, initial encounter (principal); W01.0XXA Fall on same level from slipping, tripping and stumbling without subsequent striking against object, initial encounter; Y93.02 Activity, running; Y92.210 Daycare center as the place of occurrence of the external cause; Y99.0 Civilian activity done for income or pay
CPT/HCPCS: 73100; 96372; 99284; J1885

== ENCOUNTER 2024-05-07 14:07 | Outpatient (AMB) | payer OTHER, SELFPAY ==
--- NOTE | 2024-05-07 14:09 | MHC.OFFWIV ---
Intake Vital Signs 05/07/24 14:11 Height 5 ft 1 in Weight 151 lb BMI 28.5 BP 112/70 Blood Pressure Location Rt brachial Position Sitting Pulse 60 Pulse Source Pulse Oximeter Temp 97.6 F Temp Source Oral Pulse Oximetry (%) 98 Oxygen Delivery Method Room Air Intake Visit Reasons: EP WC LT wrist/arm/shoulder pain fall DOI 05/03 Intake Note: pt c/o LT wrist/arm/shoulder/back pain. Due to fall at work 05/03 Patient Tobacco Use Status: Former Tobacco user Allergies codeine [CODEINE] Allergy (Intermediate, Verified 05/07/24 14:11) TACHYCARDIA Do you need a note to return to daycare/school/sports/work: Yes HPI HPI Comments History of Present Illness Details This is a 38-year-old right-hand dominant female presenting for evaluation of left wrist pain and left-sided neck pain that she has had since falling at work on May 03, 2024. Patient states that she slipped on a wet floor and fell onto her left shoulder and left wrist. Patient was seen in the emergency department on May 04, 2024 where imaging of the left wrist was performed which reveals a lucency of the distal left radius. The patient states that she had surgery for a ganglion cyst in her left wrist in February 08, 2024 in his had residual pain since that time that was exacerbated following the fall. She has been using Tylenol only without relief of her discomfort. 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 PENDING SALE TO [facility] Medical History Fibrocystic breast Blurry vision Family history of gastric cancer Physical exam Mild recurrent major depression Periumbilical mass COVID-19 Anxiety Polyarthralgia History of asthma History of depression History of panic attacks Hx of anxiety disorder Surgical History Periumbilical hernia Hx of section Family History Maternal Aunt History of breast cancer Sister Stomach cancer, Onset Age: 34 Father No problems noted. Mother No problems noted. Family/Other FH: mental illness Social History Housing: Apartment Alcohol intake: current Alcohol intake frequency: holidays/special occasions only Alcohol type: beer Patient Tobacco Use Status: Former Tobacco user Tobacco use type: Cigarette e-Cigarette/Vaping Use: Never Used Second Hand Smoke Exposure: No service: No Current occupational status: employed Current occupational exposures/hazards: No Cognitive needs: No Hearing needs: No Vision needs: No Female Reproductive History Menstrual Age of Menarche: 11 Review of Systems Const All systems reviewed & are unremarkable except as noted in HPI and below Denies headache(s) and Denies lethargy Eyes Reports as per HPI ENT Reports no additional complaints, Denies headache(s) and Reports neck pain (left sided) Card Reports no additional complaints Resp Reports no additional complaints Musc Reports arthralgias (left wrist), Reports limited range of motion (left wrist) and Reports neck pain (left sided) Skin/Breast Reports system reviewed and no additional complaints, except as documented Neuro Reports no additional complaints and Denies headache(s) Aller/Immun Reports no additional complaints Physical Exam Vital Signs: Last Vital Signs Temp 97.6 F 05/07/24 14:11 Pulse 60 05/07/24 14:11 BP 112/70 05/07/24 14:11 Pulse Ox 98 05/07/24 14:11 Oxygen Delivery Method Room Air 05/07/24 14:11 BMI result Body Mass Index 28.5 Const General: cooperative, healthy appearing, comfortable, no acute distress, well developed, alert, awake and Physically active Nutritional Appearance: average body habitus Orientation/consciousness: patient oriented x3 Limitations: no limitations Back/Spine/Pelvis Cervical Spine: normal cervical lordosis, cervical ROM normal, cervical muscular tenderness (left extending to the left SCM) and No Cervical spine tenderness Skin General skin exam: other (Linear surgical scar overlying the left distal radius) Neuro General: patient oriented x3 Extrem Other: pain to palpation left distal radius, dorsal surface overlying recent surgical site; sensation intact throughout LUE. Left upper extremity: normal to inspection, shoulder/upper arm (SCM tenderness with pain in left shoulder with adduction of LUE) and wrist (decreased ROM with flexion and extension ) Psych Appearance: grossly normal Mental Status: mental status grossly normal Insight: Good insight present (Psych) Judgement: Good judgement present (Psych) Results Reviewed Results Reviewed: Reviewed ED visit from 05/04/2024. Assessment & Plan Assessment & Plan (1) Left wrist pain: Comment: Imaging from ED visit is reviewed. Code(s): M25.532 - Pain in left wrist Plan: Patient is placed in a left wrist splint for immobilization and stabilization and will be referred to orthopedics for ongoing evaluation and management. Patient will follow up with her primary care provider on May 09 as well, which was previously scheduled. (2) Cervical strain: Comment: There is no midline tenderness noted on examination. Code(s): S16.1XXA - Strain of muscle, fascia and tendon at neck level, initial encounter Qualifiers: Encounter type: subsequent encounter Qualified Code(s): S16.1XXD - Strain of muscle, fascia and tendon at neck level, subsequent encounter Plan: Patient will be discharged home with Naprosyn and Robaxin for ongoing management of her musculoskeletal pain. Orders: Referrals Orthopedics Referral M25.532 - Pain in left wrist Medications: New naproxen (Naprosyn) 500 mg PO BID 20 tabs 0RF methocarbamol 750 mg PO Q8H 20 tabs 0RF Coding Level of Care Code Est Pt Level 3 (18498) Diagnoses Left wrist pain M25.532 Strain of neck muscle, subsequent encounter S16.1XXD Encounter type: subsequent encounter Time Spent (min) 30
[2024-05-07 14:11] VITALS: BP 112/70; PULSE 60; TEMP 36.4; O2SAT 98; BMI 28.5
== END 2024-05-07 14:52 | disposition home or self-care (01) ==
PROVIDERS: PCP Internal Medicine; Visit Provider Physician Assistant
DX: M25.532 Pain in left wrist (principal); S16.1XXD Strain of muscle, fascia and tendon at neck level, subsequent encounter; Z04.2 Encounter for examination and observation following work accident

== ENCOUNTER → 2024-05-07 14:07 | Outpatient (BNVA) | payer OTHER, SELFPAY | PROVIDERS: PCP Internal Medicine | DX: M25.532 Pain in left wrist (principal); S16.1XXD Strain of muscle, fascia and tendon at neck level, subsequent encounter | CPT/HCPCS: 99212 ==

== ENCOUNTER 2024-05-09 08:37 | Outpatient (AMB) | payer OTHER, SELFPAY ==
--- NOTE | 2024-05-09 08:43 | A.OFFPC_ITS ---
Vital Signs 05/09/24 08:45 Height 5 ft 1 in Weight 151 lb BMI 28.5 BP 110/82 Blood Pressure Location Lt brachial Position Sitting Intake Visit Reasons: [facility] [place] 05/09 fell at work left wrist Shroudman Required: No Accompanied by: Self / Same As Patient Allergies codeine [CODEINE] Allergy (Intermediate, Verified 05/09/24 09:03) TACHYCARDIA Medication List - Last Reconciled 05/09/24 by Sara Gonzalez MD baclofen 10 mg PO TID PRN clonazepam 1 mg PO BID PRN 30 days hydrocodone-acetaminophen 5-325 mg 1 tab PO Q4-6H PRN ibuprofen 600 mg PO Q6H PRN meclizine 25 mg PO BID PRN 7 days methocarbamol 750 mg PO Q8H naproxen (Naprosyn) 500 mg PO BID tramadol 50 mg PO BID PRN 30 days Tobacco use date assessed: 05/09/24 Dental Screening Dental Screen Date: 05/09/24 Did you have a dental visit in the last 12 months?: Yes Did you have a dental problem in the last 6 months where you did not have access to dental care?: No Was dental information given to patient?: Patient has dentist HPI HPI Comments 2 History of Present Illness Details This is a 38-year-old female with mild recurrent major depression and anxiety that comes today as hospital discharge follow-up with discharge date of 05/04/2024 due to left wrist sprain. 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 Ever since then has limited flexion and extension due to pain. X-rays were done. Will see ortho soon for this matter. Using a wrist brace. Not able to work for now. Depression has been stable and there is no need for medication as of now. Anxiety stable with benzodiazepines which she is aware can cause addiction and sedation. [facility] Medical History Fibrocystic breast Blurry vision Family history of gastric cancer Physical exam Mild recurrent major depression Periumbilical mass COVID-19 Anxiety Polyarthralgia History of asthma History of depression History of panic attacks Hx of anxiety disorder Surgical History (Updated 05/09/24 @ 08:51 by UNRULY Larios) Ganglion cyst of dorsum of left wrist Periumbilical hernia Hx of section Family History Maternal Aunt History of breast cancer Sister Stomach cancer, Onset Age: 34 Father No problems noted. Mother No problems noted. Family/Other FH: mental illness Social History Housing: Apartment Alcohol intake: current Alcohol intake frequency: holidays/special occasions only Alcohol type: beer Patient Tobacco Use Status: Former Tobacco user Tobacco use type: Cigarette e-Cigarette/Vaping Use: Never Used Second Hand Smoke Exposure: No service: No Current occupational status: unemployed Cognitive needs: No Hearing needs: No Vision needs: No Female Reproductive History Menstrual Age of Menarche: 11 Questionnaire PHQ-9 Over the last 2 weeks, how often have you been bothered by any of the following problems? 1. Little interest or pleasure in doing things: more than half the days 2. Feeling down, depressed, or hopeless: several days 3. Trouble falling or staying asleep, or sleeping too much: more than half the days 4. Feeling tired or having little energy: more than half the days 5. Poor appetite or overeating: not at all 6. Feeling bad about yourself - or that you are a failure or have let yourself or your family down: not at all 7. Trouble concentrating on things, such as reading the newspaper or watching television: not at all 8. Moving or speaking so slowly that other people could have noticed. Or the opposite - being so fidgety or restless that you have been moving around a lot more than usual: not at all 9. Thoughts that you would be better off or of hurting yourself in some way: not at all Total score: 7 Depression Screening Interpretation: Positive Depression Screening Follow-up: Existing condition and Follow-up Visit Requested Depression Screening Done: Yes 56695 - PHQ-9 Billing: Yes Source: Developed by Drs. Freddy Simental, Tiff Bullock, Nolan Chaney and colleagues, with an educational kaci from [employer]. Thrive Questionnaire Date Thrive assessed: 05/09/24 I am a: Patient What is your living situation today?: I have a steady place to live Within the past 12 months, did the food you bought not last and you didn't have the money to get more?: Never true Within the past 12 months, did you worry whether your food would run out before you got money to buy more?: Never true Do you have trouble paying for medicines?: No Do you have trouble getting transportation to medical appointments?: No Do you have trouble paying your heating and electricity bill?: No Do you have trouble taking care of your child, family member or friend?: No Do you have trouble with day-to-day activities such as bathing, preparing meals, shopping, managing finances, etc.?: No Are you currently unemployed and looking for a job?: No Are you interested in more education?: No Please select the resources that you would like help with: None Currently or been in a relationship where the following occur: No concerns reported THRIVE Score: 0 AUDIT C Alcohol Use Questionnaire (AUDIT-C) 1. How often do you have a drink containing alcohol?: 2-4 times a month 2. How many drinks containing alcohol do you have on a typical day when you are drinking?: 1 or 2 3. How often do you have six or more drinks on one occasion?: Never Total Score: 2 SINDHU-7 AMB Questionnaire SINDHU-7 Date SINDHU - 7 assessed: 05/09/24 Feeling nervous, anxious, or on edge: 3 = Nearly every day Not being able to stop or control worryin = Several days Worrying too much about different things: 2 = More than half the days Trouble relaxin = Several days Being so restless that it is hard to sit still: 0 = Not at all Becoming easily annoyed or irritable: 1 = Several days Feeling afraid as if something awful might happen: 2 = More than half the days Total SINDHU-7 score (0-4 normal; 5-9 mild; 10-14 moderate; 15-21 severe): 10 Source: Developed by Drs. Freddy Simental, Tiff Bullock, Nolan Chaney and colleagues, with an educational kaci from [employer]. SINDHU-7 Assessment Billing SINDHU-7 Assessment Tool: SINDHU-7 Assessment 09784 Review of Systems Const All systems reviewed & are unremarkable except as noted in HPI and below Card Denies chest pain at rest, Denies chest pain with activity, Denies edema, Denies irregular heart rhythm, Denies claudication, Denies dyspnea, Denies dyspnea on exertion, Denies orthopnea, Denies paroxysmal nocturnal dyspnea and Denies slow heart rate Resp Denies cough, Denies dyspnea and Denies dyspnea on exertion GI Denies abdominal pain, Denies change in bowel habits, Denies excessive flatus, Denies nausea and Denies vomiting Musc Reports arthralgias Neuro Denies lack of coordination Physical exam (Primary Care) Vital Signs: Last Vital Signs BP 110/82 05/09/24 08:45 BMI result Body Mass Index 28.5 BMI Assessment/Plan discussion: High BMI High, discussed plan: lifestyle, weight reduction, dietary and physical activity Tobacco/Smoking Status: Tobacco use Status Tobacco use date assessed 05/09/24 05/09/24 08:53 Patient Tobacco Use Status Former Tobacco user 05/09/24 08:53 Tobacco use type Cigarette 05/09/24 08:53 e-Cigarette/Vaping Use Never Used 05/09/24 08:53 PHQ-9: PHQ-9 Score PHQ-9: Total score 7 05/09/24 09:07 Depression Screening Interpretation: Positive Depression Screening Follow-up: Existing condition and Follow-up Visit Requested Thrive Assessment: Date of Thrive Assessment Date Thrive assessed 05/09/24 05/09/24 08:53 Currently or been in a relationship where the following occur: No concerns reported Resp Effort & Inspection: normal respiratory effort Auscultation: clear to auscultation bilaterally Cardio Jugular venous distension: no JVD Rate: regular rate Rhythm: regular rhythm Heart sounds: S1 normal heart sound present and S2 normal heart sound present Extrem Left upper extremity: wrist (limited flexion/extension due to pain) Assessment and Plan Assessment & Plan (1) Left wrist pain: Comment: Imaging from ED visit is reviewed. Code(s): M25.532 - Pain in left wrist Plan: Continue wrist brace. Follow-up with ortho. (2) Mild recurrent major depression: Code(s): F33.0 - Major depressive disorder, recurrent, mild Plan: Stable. No need for medication now. (3) Anxiety: Code(s): F41.9 - Anxiety disorder, unspecified Plan: Continue benzodiazepines. Orders: Orders XR wrist LT 2V Today M25.532 - Pain in left wrist Medications: Refilled naproxen (Naprosyn) 500 mg PO BID 20 tabs 0RF Coding Level of Care Code Est Pt Level 3 (38543) Complex EM visit Add On G2211 Diagnoses Left wrist pain M25.532 Mild recurrent major depression F33.0 Anxiety F41.9 Additional Codes SINDHU-7 Assessment Billing - SINDHU-7 Assessment Tool: SINDHU-7 Assessment 03984 ([id number]) Time Spent (min) 19
[2024-05-09 08:45] VITALS: BP 110/82; BMI 28.5
== END 2024-05-09 09:11 | disposition home or self-care (01) ==
PROVIDERS: PCP Internal Medicine; Visit Provider Internal Medicine
DX: M25.532 Pain in left wrist (principal); F33.0 Major depressive disorder, recurrent, mild; F41.9 Anxiety disorder, unspecified

== ENCOUNTER → 2024-05-09 08:37 | Outpatient (BNVA) | payer OTHER, SELFPAY | PROVIDERS: PCP Internal Medicine; Visit Provider Internal Medicine | DX: M25.532 Pain in left wrist (principal); F33.0 Major depressive disorder, recurrent, mild; F41.9 Anxiety disorder, unspecified | CPT/HCPCS: 96127 ==

== ENCOUNTER 2024-05-14 14:15 | Outpatient (AMB) | payer OTHER, SELFPAY ==
[2024-05-14 15:47] VITALS: BMI 28.5
--- NOTE | 2024-05-14 15:47 | MHC.OFFVIS ---
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 Patient shared a child was getting away and she ran after the child, slipping on wet floor that had just been marked. She landed primarily on her back and her left side. Patient reports episodes of numbness and tingling. She is currently taking Tylenol for pain with minimal relief. She was given a wrist brace for support which she continues to wear. Patient reports left wrist cyst removal done January,. 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 She says she was chasing after a child and slipped on a wet floor, landing on her left side. She was seen in the ED on 05/04/24 and placed in a velcro wrist splint. She complains of pain and limited use of her wrist. She denies any numbness or tingling. 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 She has a Hx of Polyarthralgia and major Depression. [facility] Medical History Fibrocystic breast Blurry vision Family history of gastric cancer Physical exam Mild recurrent major depression Periumbilical mass COVID-19 Anxiety Polyarthralgia History of asthma History of depression History of panic attacks Hx of anxiety disorder Surgical History (Updated 05/09/24 @ 08:51 by UNRULY Larios) Ganglion cyst of dorsum of left wrist Periumbilical hernia Hx of section Family History Maternal Aunt History of breast cancer Sister Stomach cancer, Onset Age: 34 Father No problems noted. Mother No problems noted. 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 Cognitive needs: No Hearing needs: No Vision needs: No Female Reproductive History Menstrual Age of Menarche: 11 Review of Systems Const All systems reviewed & are unremarkable except as noted in HPI and below Physical Exam Vital Signs: BMI result Body Mass Index 28.5 Const General: cooperative, healthy appearing and no acute distress Orientation/consciousness: patient oriented x3 HEENT Head: Yes normocephalic and Yes atraumatic Eyes EOM: EOMs intact bilaterally Resp Effort & Inspection: normal respiratory effort and able to speak in complete sentences Cardio Jugular venous distension: no JVD Skin General skin exam: turgor normal Rashes: no rashes Neuro General: patient oriented x3 Extrem Other: Evaluation of Left Upper Extremity: The patient is alert, oriented, and in no acute distress Neuro: Median, Ulnar, Radial nerves motor and sensory intact and sensation is normal to the tips of all digits Vascular: Cap refill brisk ROM: She can make a fist and extend all her digits No locking or catching Skin: No lacerations or abrasions. General: Some ecchymosis about her wrist She complained of pain and tenderness essentially anywhere that I touched her on her left upper extremity. I began with gently grasping about her humerus proximal to the elbow and she said that that hurt. I palpated about the elbow including the radiocapitellar joint and the proximal ulna in line down the entire length of the ulna and she said everything hurt. Proximal forearm squeeze hurt. Gentle squeezing more distally in the mid forearm hurt as well. Palpating along the entire length of the ulna hurt. She was able to prono-supination her hand without difficulty. She can actively flex and extend her elbow without evidence of pain. She had no swelling about the upper arm elbow or even into the wrist. No hand or wrist swelling. She did have a small amount of resolving ecchymosis on the volar aspect of the distal forearm/wrist. I attempted to use a pain scale from 0-10. I put my fingertip on her distal ulna and she said that that was a 6/10. I tried to palpate about the carpus including the snuffbox and she just said that everything hurt. I then put my finger on her distal radius and she began to cry. I then again put my finger on the snuffbox and she said that that did not hurt as much as when I put my finger on her distal radius. Again there is no swelling and she was able to move about the elbow the wrist and hand smoothly and without evidence of difficulty. Radiographs: 3 views of the left wrist were taken and viewed by me today in clinic. They show a non-displaced distal radius fracture with anatomic fracture alignment. No fracture about the distal ulna or elsewhere in the carpus. Psych Appearance: grossly normal Affect: normal affect Attitude: cooperative Office Procedures Fracture Care Details: Fracture care distal radius [id number] Fracture Billing Code: Fracture Billing Code Assessment & Plan Assessment & Plan (1) Closed fracture of left distal radius: Code(s): S52.502A - Unspecified fracture of the lower end of left radius, initial encounter for closed fracture Category: Medical (2) Mild recurrent major depression: Code(s): F33.0 - Major depressive disorder, recurrent, mild Category: Medical (3) Polyarthralgia: Code(s): M25.50 - Pain in unspecified joint Category: Medical Plan Assessment & Plan: 1. 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 Orders: Orders XR wrist LT min 3V Today M25.532 - Pain in left wrist Coding Level of Care Code New Pt Level 4 (29831) Diagnoses Closed fracture of left distal radius S52.502A Mild recurrent major depression F33.0 Polyarthralgia M25.50 CPT Codes Fracture Care - Fracture Billing Code: Fracture Billing Code ([id number])
== END 2024-05-14 16:53 | disposition home or self-care (01) ==
PROVIDERS: PCP Internal Medicine; Visit Provider Orthopaedic Surgery
DX: S52.502A Unspecified fracture of the lower end of left radius, initial encounter for closed fracture (principal); W01.0XXA Fall on same level from slipping, tripping and stumbling without subsequent striking against object, initial encounter; Z04.2 Encounter for examination and observation following work accident
CPT/HCPCS: 25600; 99204

== ENCOUNTER 2024-05-14 15:26 | Outpatient (REF) | payer OTHER, SELFPAY ==
--- NOTE | ~2024-05-14 | XR_ITS ---
EXAMINATION: XR WRIST, LEFT CLINICAL INFORMATION: M25.532 - Pain in left wrist COMPARISON: May 04, 2024. TECHNIQUE: PA, lateral, and oblique views of the left wrist. FINDINGS: Submitted for interpretation on July 22, 2024. No acute cortical disruption or malalignment. No lytic or blastic lesions. There is no sclerosis at the distal epiphyseal/metaphyseal of the left radius. XR/XR wrist LT min 3V IMPRESSION: No acute fracture or dislocation. Electronically signed by: Alejandro Ambrose MD 07/22/2024 11:27 AM KEV
== END 2024-05-14 15:27 | disposition home or self-care (01) ==
LOC: HO.HOSX 15:26
PROVIDERS: PCP Internal Medicine; Visit Provider Orthopaedic Surgery
DX: M25.532 Pain in left wrist (principal); S52.502A Unspecified fracture of the lower end of left radius, initial encounter for closed fracture; F33.0 Major depressive disorder, recurrent, mild; M25.50 Pain in unspecified joint
CPT/HCPCS: 25600; 73110; 99202

== ENCOUNTER → 2024-05-14 15:31 | Outpatient (BNV) | payer OTHER, SELFPAY | PROVIDERS: PCP Internal Medicine; Visit Provider Radiology Diagnostic Radiology | DX: M25.532 Pain in left wrist (principal) | CPT/HCPCS: 73110 ==

== ENCOUNTER 2024-06-05 08:20 | Outpatient (AMB) | payer OTHER, SELFPAY ==
--- NOTE | 2024-06-05 08:39 | MHC.OFFVIS ---
Vital Signs 06/05/24 08:44 Height 5 ft 1 in Weight 151 lb BMI 28.5 Handedness Right Intake Visit Reasons: OV-LT distal radius fx w/xray, DOI 05/03/24 Intake Note: Sánchez is a 38 year old right hand dominant female who presents today for a follow up of her left distal radius fracture s/p slip and fall. DOI: 05/03/24. Patient reports she has had intermittent mild pain but found relief taking Tylenol. She also expresses she has been having intermittent numbness and tingling in all her fingers. She has not been back to work since her last visit and she has been following her weight restriction. Base Filler Required: Yes Base Filler Language: C Web Developer Name: [id number] Allergies codeine [CODEINE] Allergy (Intermediate, Verified 06/05/24 08:43) TACHYCARDIA HPI HPI OV-LT distal radius fx w/xray, DOI 05/03/24: Details: Sánchez is a 38 year old right hand dominant Bulgarian speaking woman who returns for a left distal radius fracture, S/P fall at work, DOI: 05/03/24. She says she was chasing after a child and slipped on a wet floor, landing on her left side. She continues to complain of pain in her wrist, but says this has improved and is now mild & intermittent. She manages this with Tylenol. 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 She has a Hx of Polyarthralgia and major Depression. [facility] Medical History Fibrocystic breast Blurry vision Family history of gastric cancer Physical exam Mild recurrent major depression Periumbilical mass COVID-19 Anxiety Polyarthralgia History of asthma History of depression History of panic attacks Hx of anxiety disorder Surgical History Ganglion cyst of dorsum of left wrist Periumbilical hernia Hx of section Family History Maternal Aunt History of breast cancer Sister Stomach cancer, Onset Age: 34 Father No problems noted. Mother No problems noted. 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 Cognitive needs: No Hearing needs: No Vision needs: No Female Reproductive History Menstrual Age of Menarche: 11 Physical Exam Vital Signs: BMI result Body Mass Index 28.5 Extrem Other: Evaluation of Left Upper Extremity: The patient is alert, oriented, and in no acute distress Neuro: Median, Ulnar, Radial nerves motor and sensory intact and sensation is normal to the tips of all digits Vascular: Cap refill brisk ROM: She can make a tight fist with good strength & no pain, and extend all her digits No locking or catching Wrist ROM: Flexion: ~15 degrees, limited by apprehension & pain Extension: ~20 degrees, limited by apprehension & pain Full & symmetrical wrist pronosupination She was very hesitant to perform flexion or extension motion at all today General: Resolved ecchymosis about her wrist She was very hesitant to have me touch her distal radius at all today. No tenderness today about the upper arm elbow or proximal forearm. Again she was hesitant to have me touch her distal radius, this was difficult to tell whether or not she was tender. No swelling No pain with prono-supination Radiographs: 3 views of the left wrist were taken and viewed by me today in clinic. They show a non-displaced distal radius fracture with anatomic fracture alignment and good evidence of interval bony healing. No fracture about the distal ulna or elsewhere in the carpus. Assessment & Plan Assessment & Plan (1) Closed fracture of left distal radius: Code(s): S52.502A - Unspecified fracture of the lower end of left radius, initial encounter for closed fracture Category: Medical (2) Mild recurrent major depression: Code(s): F33.0 - Major depressive disorder, recurrent, mild Category: Medical (3) Polyarthralgia: Code(s): M25.50 - Pain in unspecified joint Category: Medical Plan Assessment & Plan: 1. Left nondisplaced distal radius fracture, transverse across metaphysis, extra-articular S/P fall, DOI: 05/03/24 This is a work-related injury I educated her about this condition This has gone on to heal well on radiographs She was fitted for a velcro wrist splint, to be worn when out of the house in crowds or with heavy daily activities for the next 3 weeks. She should not exceed 4-6 hours daily and she is not to wear this at home or at night. I discussed activity modification, she is to lift lightweight objects and begin to use her hand for more normal daily activities. 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 Anticipate a return to full duty at work Scribed for Brianne Evans MD by Alejandro Lazo, medical staff coordinator, on 06/05/24 at 9:20 AM, EST. Orders: Orders OT Evaluation and Treatment Today S52.502A - Unspecified fracture of the lower end of left radius, initial encounter for closed fracture XR wrist LT min 3V Today M25.532 - Pain in left wrist Coding Level of Care Code Global (09030) Diagnoses Closed fracture of left distal radius S52.502A Mild recurrent major depression F33.0 Polyarthralgia M25.50
[2024-06-05 08:44] VITALS: BMI 28.5
== END 2024-06-05 09:34 | disposition home or self-care (01) ==
PROVIDERS: PCP Internal Medicine; Visit Provider Orthopaedic Surgery
DX: S52.502A Unspecified fracture of the lower end of left radius, initial encounter for closed fracture (principal); F33.0 Major depressive disorder, recurrent, mild; M25.50 Pain in unspecified joint
CPT/HCPCS: 99024

== ENCOUNTER 2024-06-05 13:37 | Outpatient (REF) | payer OTHER, SELFPAY | END 2024-06-05 13:38 | disposition home or self-care (01) | LOC: HO.HOSX 13:37 | PROVIDERS: Visit Provider Orthopaedic Surgery | DX: M25.532 Pain in left wrist (principal); S52.592A Other fractures of lower end of left radius, initial encounter for closed fracture; F33.0 Major depressive disorder, recurrent, mild; M25.50 Pain in unspecified joint | CPT/HCPCS: 73110; 99212 ==

== ENCOUNTER 2024-06-20 12:18 | Outpatient (REF) | payer OTHER, SELFPAY ==
[2024-06-20 17:04] LABS: Amphetamine Screen Urine Not Detected (Not Detect); Barbiturates, Urine Not Detected (Not Detect); Benzodiazepines Screen Urine Not Detected (Not Detect); Buprenorphine Scr Not Detected (Not Detect); Cannabinoid Screen Urine Not Detected (Not Detect); Cocaine Screen Urine Not Detected (Not Detect); Fentanyl, urine Not Detected (Not Detect); Methadone Screen, Urine Not Detected (Not Detect); Opiate Screen Urine Not Detected (Not Detect); Oxycodone Screen Urine Not Detected (Not Detect); Phencyclidine Screen Urine Not Detected (Not Detect)
[2024-06-24 10:23] LABS: Desmethyltramadol, Ur NEGATIVE; Tramadol, Ur NEGATIVE
== END 2024-06-20 12:19 | disposition home or self-care (01) ==
LOC: HO.LNP 12:18
PROVIDERS: PCP Internal Medicine; Visit Provider Internal Medicine
DX: Z00.00 Encounter for general adult medical examination without abnormal findings (principal); M51.369 Other intervertebral disc degeneration, lumbar region without mention of lumbar back pain or lower extremity pain; F41.9 Anxiety disorder, unspecified; F33.0 Major depressive disorder, recurrent, mild; M51.360 Other intervertebral disc degeneration, lumbar region with discogenic back pain only; S52.502D Unspecified fracture of the lower end of left radius, subsequent encounter for closed fracture with routine healing
CPT/HCPCS: 80307; 80346; 80365; 80373; 96127; 99212; 99395; G0480

== ENCOUNTER 2024-06-20 12:18 | Outpatient (AMB) | payer OTHER, SELFPAY ==
--- NOTE | 2024-06-20 12:21 | A.OFFPC_ITS ---
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 Accompanied by: Self / Same As Patient Allergies codeine [CODEINE] Allergy (Intermediate, Verified 06/20/24 12:34) TACHYCARDIA Medication List - Last Reconciled 06/20/24 by Sara Gonzalez MD baclofen 10 mg PO TID PRN clonazepam 1 mg PO BID PRN 30 days ibuprofen 600 mg PO Q6H PRN meclizine 25 mg PO BID PRN 7 days methocarbamol 750 mg PO Q8H naproxen (Naprosyn) 500 mg PO BID tramadol 50 mg PO BID PRN 30 days Tobacco use date assessed: 05/09/24 Dental Screening Dental Screen Date: 05/09/24 HPI HPI Comments History of Present Illness Details This is a 30-year-old female with mild recurrent major depression that comes for her physical exam. She says that her depression is due to her recent left wrist fracture which makes her not able to work. Pap smear done 2020. Pain management contract signed today due to chronic tramadol use due to chronic back pain. Currently with left wrist limited flexion and extension. [facility] Medical History Fibrocystic breast Blurry vision Family history of gastric cancer Physical exam Mild recurrent major depression Periumbilical mass COVID-19 Anxiety Polyarthralgia History of asthma History of depression History of panic attacks Hx of anxiety disorder Surgical History Ganglion cyst of dorsum of left wrist Periumbilical hernia Hx of section Family History Maternal Aunt History of breast cancer Sister Stomach cancer, Onset Age: 34 Father No problems noted. Mother No problems noted. 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 1. Little interest or pleasure in doing things: several days 2. Feeling down, depressed, or hopeless: several days 3. Trouble falling or staying asleep, or sleeping too much: several days 4. Feeling tired or having little energy: several days 5. Poor appetite or overeating: several days 6. Feeling bad about yourself - or that you are a failure or have let yourself or your family down: several days 7. Trouble concentrating on things, such as reading the newspaper or watching television: several days 8. Moving or speaking so slowly that other people could have noticed. Or the opposite - being so fidgety or restless that you have been moving around a lot more than usual: not at all 9. Thoughts that you would be better off or of hurting yourself in some way: not at all Total score: 7 Depression Screening Interpretation: Positive Depression Screening Follow-up: Existing condition and Follow-up Visit Requested Depression Screening Done: Yes 26920 - PHQ-9 Billing: Yes Source: Developed by Drs. Freddy Simental, Tiff Bullock, Nolan Chaney and colleagues, with an educational kaci from [employer]. Thrive Questionnaire Date Thrive assessed: 06/20/24 I am a: Patient What is your living situation today?: I have a place to live, but I am worried about losing it in the future Within the past 12 months, did the food you bought not last and you didn't have the money to get more?: Never true Within the past 12 months, did you worry whether your food would run out before you got money to buy more?: Never true Do you have trouble paying for medicines?: No Do you have trouble getting transportation to medical appointments?: No Do you have trouble paying your heating and electricity bill?: Yes Do you have trouble taking care of your child, family member or friend?: No Do you have trouble with day-to-day activities such as bathing, preparing meals, shopping, managing finances, etc.?: No Are you currently unemployed and looking for a job?: No Are you interested in more education?: Yes Please select the resources that you would like help with: Housing/[facility] and Utilities Currently or been in a relationship where the following occur: No concerns reported THRIVE Score: 2 AUDIT C Alcohol Use Questionnaire (AUDIT-C) 1. How often do you have a drink containing alcohol?: 2-4 times a month 2. How many drinks containing alcohol do you have on a typical day when you are drinking?: 5 or 6 3. How often do you have six or more drinks on one occasion?: Monthly Total Score: 6 SINDHU-7 AMB Questionnaire SINDHU-7 Date SINDHU - 7 assessed: 06/20/24 Feeling nervous, anxious, or on edge: 1 = Several days Not being able to stop or control worryin = Several days Worrying too much about different things: 1 = Several days Trouble relaxin = Several days Being so restless that it is hard to sit still: 1 = Several days Becoming easily annoyed or irritable: 1 = Several days Feeling afraid as if something awful might happen: 1 = Several days Total SINDHU-7 score (0-4 normal; 5-9 mild; 10-14 moderate; 15-21 severe): 7 Source: Developed by Drs. Freddy Simental, Tiff Bullock, Nolan Chaney and colleagues, with an educational kaci from [employer]. SINDHU-7 Assessment Billing SINDHU-7 Assessment Tool: SINDHU-7 Assessment 51686 Review of Systems Const All systems reviewed & are unremarkable except as noted in HPI and below Card Denies chest pain at rest, Denies chest pain with activity, Denies edema, Denies irregular heart rhythm, Denies claudication, Denies dyspnea, Denies dyspnea on exertion, Denies orthopnea, Denies paroxysmal nocturnal dyspnea and Denies slow heart rate Resp Denies cough, Denies dyspnea and Denies dyspnea on exertion Musc Reports arthralgias Psych Reports anxiety and Reports depression Physical exam (Primary Care) Vital Signs: Last Vital Signs BP 112/80 06/20/24 12:22 BMI result Body Mass Index 28.3 Tobacco/Smoking Status: Tobacco use Status Tobacco use date assessed 05/09/24 06/20/24 12:25 Patient Tobacco Use Status Former Tobacco user 06/20/24 12:39 Tobacco use type Cigarette 06/20/24 12:39 e-Cigarette/Vaping Use Never Used 06/20/24 12:39 PHQ-9: PHQ-9 Score PHQ-9: Total score 7 06/20/24 12:41 Depression Screening Interpretation: Positive Depression Screening Follow-up: Existing condition and Follow-up Visit Requested Thrive Assessment: Date of Thrive Assessment Date Thrive assessed 06/20/24 06/20/24 12:25 Currently or been in a relationship where the following occur: No concerns reported HENMT Head: Yes normal to inspection, Yes normocephalic and Yes atraumatic Ears: external ears normal Eyes General: appearance normal, both eyes and all related structures Eyelids: Yes eyelids normal Conjunctivae: conjunctivae normal Neck Neck: Yes normal visual inspection and Yes supple Resp Effort & Inspection: normal respiratory effort Auscultation: clear to auscultation bilaterally Cardio Jugular venous distension: no JVD Rate: regular rate Rhythm: regular rhythm Heart sounds: S1 normal heart sound present and S2 normal heart sound present GI Inspection: Yes normal to inspection Palpation (GI): Soft to palpation and nontender Auscultation: normal bowel sounds Skin General skin exam: no rashes or lesions noted Neuro General: no focal motor deficits Extrem Other: left wrist brace, left wrist limited flexion and extension Psych Appearance: grossly normal Coding Level of Care Code Est Pt Level 3 (41843) Est Pt Prev Care 18-39y(66588) Diagnoses Physical exam Z00.00 Mild recurrent major depression F33.0 Degeneration of intervertebral disc of lumbar region with discogenic back pain M51.360 Disc-related pain type: discogenic back pain only Closed fracture of distal end of left radius with routine healing, unspecified fracture morphology, subsequent encounter S52.502D Encounter type: subsequent encounter Fracture healing: with routine healing Fracture morphology: unspecified fracture morphology Additional Codes SINDHU-7 Assessment Billing - SINDHU-7 Assessment Tool: SINDHU-7 Assessment 60167 ([id number]) Time Spent (min) 32 Assessment & Plan Assessment & Plan (1) Physical exam: Code(s): Z00.00 - Encounter for general adult medical examination without abnormal findings Category: Medical Plan: Repeat in a year. (2) Mild recurrent major depression: Code(s): F33.0 - Major depressive disorder, recurrent, mild Category: Medical Plan: Declines treatment. (3) Lumbar degenerative disc disease: Comment: Pain management contract signed 06/20/2024. Urine toxicology done 06/20/2024 Code(s): M51.369 - Other intervertebral disc degeneration, lumbar region without mention of lumbar back pain or lower extremity pain Category: Medical Qualifiers: Disc-related pain type: discogenic back pain only Qualified Code(s): M51.360 - Other intervertebral disc degeneration, lumbar region with discogenic back pain only Plan: Continue tramadol. Pain management contract signed today. (4) Closed fracture of left distal radius: Code(s): S52.502A - Unspecified fracture of the lower end of left radius, initial encounter for closed fracture Category: Medical Qualifiers: Encounter type: subsequent encounter Fracture healing: with routine healing Fracture morphology: unspecified fracture morphology Qualified Code(s): S52.502D - Unspecified fracture of the lower end of left radius, subsequent encounter for closed fracture with routine healing Plan: Continue the use of wrist brace. Orders: Orders Drug Screen Urine Today M51.369 - Other intervertebral disc degeneration, lumbar region without mention of lumbar back pain or lower extremity pain Tramadol Ur GC/MS Today M51.369 - Other intervertebral disc degeneration, lumbar region without mention of lumbar back pain or lower extremity pain Opiates GCMS Expanded, Ur Today M51.369 - Other intervertebral disc degeneration, lumbar region without mention of lumbar back pain or lower extremity pain Benzodiazepine,GC/MS Urine Today F41.9 - Anxiety disorder, unspecified
[2024-06-20 12:22] VITALS: BP 112/80; BMI 28.3
== END 2024-06-20 14:26 | disposition home or self-care (01) ==
LOC: HO.HMCH 12:19
PROVIDERS: PCP Internal Medicine; Visit Provider Internal Medicine
DX: Z00.00 Encounter for general adult medical examination without abnormal findings (principal); F33.0 Major depressive disorder, recurrent, mild; M51.360 Other intervertebral disc degeneration, lumbar region with discogenic back pain only; S52.502D Unspecified fracture of the lower end of left radius, subsequent encounter for closed fracture with routine healing

== ENCOUNTER 2024-07-02 14:19 | Outpatient (REF) | payer OTHER, SELFPAY | END 2024-07-02 14:20 | disposition home or self-care (01) | LOC: HO.HOSX 14:19 | PROVIDERS: Visit Provider Orthopaedic Surgery | DX: Z13.89 Encounter for screening for other disorder (principal) ==

== ENCOUNTER 2024-08-17 04:28 | Emergency (ER) | payer OTHER, SELFPAY ==
[2024-08-17 04:53] VITALS: BP 124/63; PULSE 70; RESP 16; TEMP 36.3; O2SAT 96; BMI 28.6
--- NOTE | 2024-08-17 05:21 | MHC.EDTECH ---
Patient brought from triage room,labs,and urine obtained and sent to lab,call hernandez in reach
[2024-08-17 05:27] LABS: Hematocrit 34.7 % (37.0-47.0); Hemoglobin 11.3 g/dl (12.0-16.0); Mean Corpuscular HGB Conc 32.6 g/dl (31.0-35.0); Mean Corpuscular Hemoglobin 26.6 pg (27.0-33.0); Mean Corpuscular Volume 81.6 fL (80.0-98.0); Mean Platelet Volume 10.6 fL (9.4-12.3); Platelet Count 270 X10*3/uL (160-400); Red Blood Count 4.25 X10*6/uL (4.20-5.50); Red Cell Distribution Width 14.2 % (11.0-16.0); White Blood Count 7.3 X10*3/uL (4.8-10.8)
[2024-08-17 05:29] LABS: Appearance Urine Cloudy; Color Urine Orange; Glucose Urine UA Negative (Negative); Leukocyte Esterase Urine Large (3+) (Negative); Nitrite Urine Positive (Negative); PH 5.5 (5.0-9.0); Specific Gravity - Urine 1.015 (1.005-1.025); UMIC TRIGGER UACC YES; Urine Blood Trace (Negative); Urine Ketones Negative (Negative); Urine Protein Negative (Neg-Trace)
[2024-08-17 05:30] LABS: UPreg QC Valid YES; Urine Pregnancy NEGATIVE (NEGATIVE)
[2024-08-17 05:40] LABS: Bacteria Urine 4+ (None Seen); Hyaline Casts Urine 0-2 /LPF (0-2); UACC Culture Trigger YES; WBC Urine >50 /HPF (0-5)
[2024-08-17 05:44] LABS: Alanine Aminotransferase 9 U/L (0-31); Albumin Level 3.9 g/dL (3.5-5.0); Alkaline Phosphatase 68 U/L (39-117); Anion Gap 11 (12-20); Aspartate Amino Transferase 16 U/L (5-31); Bilirubin Total 0.4 mg/dL (0.0-1.0); Blood Urea Nitrogen 14 mg/dL (9-16); Carbon Dioxide 21 mmol/L (22-29); Chloride 114 mmol/L (96-108); Creatinine Clr Calc Pharmacy 94.3; Estimated Glomerular Filt Rate > 60; Glucose Random 104 mg/dL (60-115); Potassium 3.8 mmol/L (3.3-5.1); Sodium 142 mmol/L (135-145); Total Protein 6.6 g/dL (6.5-8.0)
--- NOTE | 2024-08-17 07:33 | ED.FEMALEGU ---
HPI - Female Genitourinary General Chief complaint: Urogenital-Female Stated complaint: gen med Time Seen by Provider: 08/17/24 06:33 Source: patient Mode of arrival: ambulatory Limitations: no limitations and language barrier (Jordanian speaking interpreter for the deaf utilized) History of Present Illness ED Provider: Gabby Villarreal NP HPI Narrative: Patient is a 38-year-old female who presents emergency department for evaluation. She reports that yesterday morning she began with urinary urgency frequency and discomfort in the suprapubic region when urinating. She reports that she took OTC azo with some improvement. She noticed a small amount of blood in the urine of pink tinge and a few drops of blood after wiping. Initial nursing triage reports that she is having bilateral flank pain. However the time of my evaluation she points to her lower abdomen more midline towards the suprapubic region. When asked she denies having back pain at this time. She denies associated fevers, chills, nausea, vomiting. Denies pelvic pain or abnormal vaginal discharge. Denies concern for sexually transmitted infection. Denies possibility for . Related Data Home Medications ?Medication ?Instructions ?Recorded ?Confirmed baclofen 10 mg tablet 10 mg PO TID PRN Pain 02/15/24 06/20/24 Previous Rx's ?Medication ?Instructions ?Recorded ibuprofen 600 mg tablet 600 mg PO Q6H PRN pain #30 tabs 08/02/23 meclizine 25 mg tablet 25 mg PO BID PRN dizziness 7 days 08/02/23 #14 tabs methocarbamol 750 mg tablet 750 mg PO Q8H #20 tabs 05/07/24 naproxen 500 mg tablet (Naprosyn) 500 mg PO BID #20 tabs 05/09/24 clonazepam 1 mg tablet 1 mg PO BID PRN anxiety 30 days 08/05/24 #60 tabs tramadol 50 mg tablet 50 mg PO BID PRN pain 30 days #60 08/05/24 tabs cefuroxime axetil 250 mg tablet 250 mg PO BID #14 tabs 08/17/24 Allergies Allergy/AdvReac Type Severity Reaction Status Date / Time codeine [CODEINE] Allergy Intermediate TACHYCARDIA Verified 08/17/24 05:01 Review of Systems Review of Systems: Yes all other systems are reviewed and are negative PMFSH Past Medical History Attestation statement: The following information was validated with the patient. Source: old records reviewed Medical History Fibrocystic breast Blurry vision Family history of gastric cancer Physical exam Mild recurrent major depression Periumbilical mass COVID-19 Anxiety Polyarthralgia History of asthma History of depression History of panic attacks Hx of anxiety disorder Surgical History Ganglion cyst of dorsum of left wrist Periumbilical hernia Hx of section Family History Family History Maternal Aunt History of breast cancer Sister Stomach cancer, Onset Age: 34 Father No problems noted. Mother No problems noted. Family/Other FH: mental illness Social History Social History (Updated 06/20/24 @ 12:39 by Sara Gonzalez MD) Housing: Apartment Alcohol intake: current Alcohol intake frequency: holidays/special occasions only Alcohol type: beer Patient Tobacco Use Status: Former Tobacco user Tobacco use type: Cigarette Smoked in Last 30 Days: No e-Cigarette/Vaping Use: Never Used Second Hand Smoke Exposure: No Use of substances other than those prescribed or required for medical reasons: No Any prior treatment program specific to substance use: No Advance Directives: No Advance Directives Information Provided: Yes Patient : No service: No 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 No acute distress.?Normal affect.? CVS: Heart sounds normal. Normal heart rate and rhythm.? Pulses normal.?? Respiratory: No respiratory distress.? Lung sounds clear to auscultation bilaterally?? Abdomen: Soft mild tenderness over the suprapubic region. No rebound tenderness. No rigidity. No guarding. Normoactive bowel sounds. No CVAT. Skin: Skin warm and dry.? Normal skin color.? Extremities: No lower extremity edema.? Neuro: Moves all extremities spontaneously. Sensation intact bilaterally. Ambulates with normal steady gait. Medical Decision Making Medical Decision Making [facility] Narrative: Patient is a 38-year-old female presents emergency department for evaluation of urinary symptoms as per HPI. Overall she appears well, nontoxic, afebrile, no tachycardia. On examination she has mild tenderness over the suprapubic region, no CVAT to suggest acute pyelonephritis/renal colic Ms. Setting of hydronephrosis/obstructive calculi. Not consistent with acute surgical abdomen. Serum labs without leukocytosis thrombocytopenia, has a mild normocytic anemia does not meet transfusion criteria. No significant electrolyte derangement. No DELMAR. LFTs within normal range. Urinalysis consistent with UTI trace microscopic hematuria. Discussed strict return precautions, sent prescription for antibiotic to pharmacy. testing is negative. All questions answered Differential Diagnosis Differential Diagnoses: The differential diagnosis associated with the presentation includes (See narrative above) Admission/Observation Consideration of admission/observation: Escalation of care including admission/observation considered (See narrative above) Lab Data [facility] Lab Attestation statement: I reviewed the patient's lab results. (See narrative above) 08/17/24 05:18 08/17/24 05:18 Labs: Lab Results 08/17/24 Range/Units 05:18 WBC 7.3 (4.8-10.8) X10*3/uL RBC 4.25 (4.20-5.50) X10*6/uL Hgb 11.3 L (12.0-16.0) g/dl Hct 34.7 L (37.0-47.0) % MCV 81.6 (80.0-98.0) fL MCH 26.6 L (27.0-33.0) pg MCHC 32.6 (31.0-35.0) g/dl RDW 14.2 (11.0-16.0) % Plt Count 270 (160-400) X10*3/uL MPV 10.6 (9.4-12.3) fL Absolute Nucleated RBC 0.000 (0.0-0.012) X10*3/uL Nucleated RBC % (auto) 0.0 (0.0-0.2) /100WBC Sodium 142 (135-145) mmol/L Potassium 3.8 (3.3-5.1) mmol/L Chloride 114 H (96-108) mmol/L Carbon Dioxide 21 L (22-29) mmol/L Anion Gap 11 L (12-20) BUN 14 (9-16) mg/dL Creatinine 0.71 (0.5-1.4) mg/dL Estim Creat Clear Calc 94.3 Estimated GFR > 60 Random Glucose 104 (60-115) mg/dL Calcium 9.0 (8.4-10.2) mg/dL Total Bilirubin 0.4 (0.0-1.0) mg/dL AST 16 (5-31) U/L ALT 9 (0-31) U/L Alkaline Phosphatase 68 (39-117) U/L Total Protein 6.6 (6.5-8.0) g/dL Albumin 3.9 (3.5-5.0) g/dL Urine Color [place] A Urine Appearance Cloudy Urine pH 5.5 (5.0-9.0) Ur Specific [place] 1.015 (1.005-1.025) Urine Protein Negative (Neg-Trace) mg/dL Urine Glucose (UA) Negative (Negative) mg/dL Urine Ketones Negative (Negative) mg/dL Urine Blood Trace H (Negative) Urine Nitrite Positive H (Negative) Ur Leukocyte Esterase Large (3+) H (Negative) Urine RBC 3-5 H (0-2) /HPF Urine WBC >50 H (0-5) /HPF Ur Squamous Epith Cells 6-10 (0-2) /HPF Urine Bacteria 4+ (None Seen) Hyaline Casts 0-2 (0-2) /LPF Urine Test NEGATIVE (NEGATIVE) External Record Review External record reviewed: Outpatient record Tests considered The following testing was considered but not selected: Defer CT AP, low clinical suspicion for renal colic/obstructive calculi/ pyelo Prescription Management I considered prescription management with: Antibiotic Discharge Plan Discharge Clinical Impression: UTI (urinary tract infection) Patient Disposition: Home, Self-Care Instructions: Urinary Tract Infection in Women (ED) Additional Instructions: Complete the entire course of antibiotics as prescribed. Do not stop taking earlier skip any doses even if you begin to feel better. Be sure that you are staying hydrated, drink plenty of fluids. Follow-up with your primary care doctor. Prescriptions: New cefuroxime axetil 250 mg tablet 250 mg PO BID Qty: 14 0RF No Action clonazepam 1 mg tablet 1 mg PO BID PRN (Reason: anxiety) 30 Days Qty: 60 0RF tramadol 50 mg tablet 50 mg PO BID PRN (Reason: pain) 30 Days Qty: 60 0RF baclofen 10 mg tablet 10 mg PO TID PRN (Reason: Pain) ibuprofen 600 mg tablet 600 mg PO Q6H PRN (Reason: pain) Qty: 30 0RF meclizine 25 mg tablet 25 mg PO BID PRN (Reason: dizziness) 7 Days Qty: 14 0RF naproxen [Naprosyn] 500 mg tablet 500 mg PO BID Qty: 20 0RF methocarbamol 750 mg tablet 750 mg PO Q8H Qty: 20 0RF Referrals: Sara Stover MD [Primary Care Provider] - Interventions: ED Discharge Assessment Last Done: 08/17/24 07:50 Discharge Date/Time: 08/17/24 07:52 Print Language: Jordanian
[2024-08-17 07:43] VITALS: BP 120/72; PULSE 73; RESP 18; TEMP 36.4; O2SAT 98
[2024-08-17 07:50] VITALS: BP 120/72; PULSE 73; RESP 18; TEMP 36.4; O2SAT 98
== END 2024-08-17 07:52 | disposition home or self-care (01) ==
PROVIDERS: Emergency Provider Emergency Medicine; PCP Internal Medicine
DX: N39.0 Urinary tract infection, site not specified (principal); B96.20 Unspecified Escherichia coli [E. coli] as the cause of diseases classified elsewhere
CPT/HCPCS: 36415; 80053; 81001; 81025; 85027; 87086; 87088; 87186; 99283; 99284

== ENCOUNTER 2024-09-19 13:21 | Outpatient (REF) | payer OTHER, SELFPAY ==
--- OUTSIDE RECORDS SUMMARY | 2024-09-19 18:03 | XMS_ITS | Encounter Summary ---
Author Organization [facility] Address [address] [place] [address] [address] [place] [address] Care Team Providers Care Program Or Project Administrator Name Role Phone Unavailable Primary Care Provider Unavailabl e Encounter Details Date Type Department Care Team (Latest Contact Info) Description 01/26/2021 Abstract C CONVERSIONS Dental, Provider, DDS Social History Tobacco Use Types Packs/Day Years Used Date Smoking Tobacco: Never Assessed Comments Unknown Sex and Gender Information Value Date Recorded Sex Assigned at Female 06/20/2022 10:18 AM EDT Legal Sex Female 10:18 AM EDT Gender Identity Female 06/20/2022 10:18 AM EDT Sexual Orientation Straight 06/20/2022 10 :18 AM EDT documented as of this encounter Plan of Treatment Not on file documented as of this encounter Visit Diagnoses Not on filedocumented in this encounter
--- OUTSIDE RECORDS SUMMARY | 2024-09-19 18:03 | XMS_ITS | Clinical Summary ---
Author Organization [facility] Address [address] [place] [address] Care Team Providers Care Vehicle Assembly Inspector Name Role Phone Unavailable Primary Care Provider Unavailabl e Social History Tobacco Use Types Packs/Day Years Used Date Smoking Tobacco: Never Assessed Comments Unknown Sex and Gender Information Value Date Recorded Sex Assigned at Female 06/20/2022 10:18 AM EDT Legal Sex Female 10:18 AM EDT Gender Identity Female 06/20/2022 10:18 AM EDT Sexual Orientation Straight 06/20/2022 10 :18 AM EDT Plan of Treatment Health Maintenance Due Date Last Done Comments Depression Screening 1984 Alcohol/Substance Use Screening 1996 Tobacco Screening 1996 Family Planning (PISQ) 11/19/1999 Hepatitis B Vaccines (1 of 3 - 19+ 3-dose series) 11/19/2003 Pap Smear 2005 Cervical Cancer Screening 2014 HPV/Cotest 2014 DTaP/Tdap/Td Vaccines (2 - T d or Tdap) 10/15/2023 10/15/2013, 12/18/2006 COVID-19 Vaccine ( - 2023-2 5 season) 2024 Influenza Vaccine (#1) 04/21/2024201 7, 06/25/2015 Zoster Vaccines (1 of 2) 2034 RSV Patients and Patients Aged 60 years or older (1 - 1-dose 75+ series) 11/19/2059 HIB Vaccines Aged Out No longer eligi ble based on patient's age to complete this topic HPV Vaccines Aged Out No longer eligi ble based on patient's age to complete this topic Hepatitis A Vaccines Aged Out No long er eligible based on patient's age to complete this topic IPV Vaccines Aged Out No longer eligi ble based on patient's age to complete this topic Meningococcal Vaccine Aged Out No jakob geronimo eligible based on patient's age to complete this topic Pneumococcal Vaccine: Pediatrics (0 to 5 Years) and At-Risk Patients (6 to 49) Years) Aged Out No longer eligible b ased on patient's age to complete this topic RSV under 20 months Aged Out No longe r eligible based on patient's age to complete this topic Rotavirus Vaccines Aged Out No longer eligible based on patient's age to complete this topic
[2024-09-30 10:19] LABS: HPV Genotype 16 Negative (Negative); HPV Genotype 18 Negative (Negative); HPV High Risk Negative (Negative)
== END 2024-09-19 13:22 | disposition home or self-care (01) ==
LOC: HO.LNP 13:21
PROVIDERS: PCP Internal Medicine; Visit Provider Advanced Practice Midwife
DX: Z01.419 Encounter for gynecological examination (general) (routine) without abnormal findings (principal); R10.2 Pelvic and perineal pain; N92.0 Excessive and frequent menstruation with regular cycle; K59.00 Constipation, unspecified; Z11.3 Encounter for screening for infections with a predominantly sexual mode of transmission
CPT/HCPCS: 87626; 88175; 99395; 99459

== ENCOUNTER 2024-09-19 14:13 | Outpatient (REF) | payer OTHER, SELFPAY ==
[2024-09-20 05:35] LABS: CT PCR NOT DETECTED (Not Detect.); NG PCR NOT DETECTED (Not Detect.)
[2024-09-20 10:28] LABS: Bacterial Vaginosis PCR NEGATIVE (Negative); Candida Group PCR DETECTED (Not Detect); Candida glab krusei PCR NOT DETECTED (Not Detect); Trichomonas vaginalis PCR NOT DETECTED (Not Detect)
== END 2024-09-19 14:14 | disposition home or self-care (01) ==
LOC: HO.LAB 14:13
PROVIDERS: Visit Provider Advanced Practice Midwife
DX: Z00.00 Encounter for general adult medical examination without abnormal findings (principal); N89.8 Other specified noninflammatory disorders of vagina; Z20.2 Contact with and (suspected) exposure to infections with a predominantly sexual mode of transmission; Z11.51 Encounter for screening for human papillomavirus (HPV)
CPT/HCPCS: 81515; 87491; 87591

== ENCOUNTER 2024-09-24 01:58 | Emergency (ER) | payer OTHER, SELFPAY ==
--- NOTE | 2024-09-24 | ECG_ITS ---
Test Reason : CP WITH COUGHING Blood Pressure : */* mmHG Vent. Rate : 68 BPM Atrial Rate : 68 BPM P-R Int : 150 ms QRS Dur : 82 ms QT Int : 382 ms P-R-T Axes : 48 24 25 degrees QTcB Int : 406 ms Normal sinus rhythm with sinus arrhythmia Normal ECG When compared with ECG of 08-Sep-2022 16:18, No significant change was found Referred By: Generic ED Physician Electronically Signed By: Enoch Nichole
--- NOTE | ~2024-09-24 | XR_ITS ---
CLINICAL HISTORY: cough 2 view chest x-ray Comparison: CR/SR - XR CHEST 2V - 09/08/22 16:52 EST Findings: No consolidation or effusion. Normal size heart. No acute fracture. IMPRESSION: 1. No acute findings. This document has been electronically signed by: Harry Serrano MD, PHD on 09/24/2024 03:31:37
[2024-09-24 02:01] VITALS: BP 137/62; PULSE 71; RESP 20; TEMP 36.6; O2SAT 98; BMI 28.7
[2024-09-24 02:44] LABS: IDNOW Serial# 58CA691E; Strep A Nucleic Acid Negative (Negative)
[2024-09-24 03:15] LABS: Influenza A PCR NEGATIVE (Negative); Influenza B PCR NEGATIVE (Negative); Resp Syncy Virus RNA Qual PCR NEGATIVE (Negative); SARS COV2 PCR INHOUSE NEGATIVE (Negative)
[2024-09-24 05:46] VITALS: O2SAT 98
[2024-09-24 06:29] VITALS: BP 105/63; PULSE 71; RESP 16; TEMP 36.8; O2SAT 100
--- NOTE | 2024-09-24 07:27 | ED.URI ---
HPI - URI/Sore Throat General Chief Complaint: Upper Respiratory Symptoms Stated Complaint: chest pain, coughing a lot Time Seen by Provider: 09/24/24 06:38 Source: patient, RN notes reviewed and old records reviewed Mode of arrival: ambulatory History of Present Illness ED Provider: Karishma Sepulveda PA-C HPI Narrative: 38-year-old Andorran-speaking female with a past medical history anxiety, polyarthralgia, presenting to the ED complaining of dry cough, SOB, chest discomfort with coughing x 3 days. Also reports post-tussive emesis. Admits daughter sick with similar symptoms. Denies known fever, travel, abdominal pain, pedal edema, sore throat Related Data Home Medications ?Medication ?Instructions ?Recorded ?Confirmed baclofen 10 mg tablet 10 mg PO TID PRN Pain 02/15/24 09/19/24 Previous Rx's ?Medication ?Instructions ?Recorded ibuprofen 600 mg tablet 600 mg PO Q6H PRN pain #30 tabs 08/02/23 meclizine 25 mg tablet 25 mg PO BID PRN dizziness 7 days 08/02/23 #14 tabs methocarbamol 750 mg tablet 750 mg PO Q8H #20 tabs 05/07/24 naproxen 500 mg tablet (Naprosyn) 500 mg PO BID #20 tabs 05/09/24 cefuroxime axetil 250 mg tablet 250 mg PO BID #14 tabs 08/17/24 clonazepam 1 mg tablet 1 mg PO BID PRN anxiety 30 days 09/04/24 #60 tabs tramadol 50 mg tablet 50 mg PO BID PRN pain 30 days #60 09/04/24 tabs medroxyprogesterone 150 mg/mL 150 mg IM Q12W #1 mL 09/19/24 intramuscular suspension (Depo-Provera) fluconazole 150 mg tablet 150 mg PO DAILY 1 dose #1 tab 09/23/24 benzonatate 100 mg capsule 100 mg PO TID PRN cough #14 caps 09/24/24 Allergies Allergy/AdvReac Type Severity Reaction Status Date / Time codeine [CODEINE] Allergy Intermediate TACHYCARDIA Verified 09/24/24 02:03 Review of Systems Review of Systems: Yes all other systems are reviewed and are negative Constitutional: Constitutional: Reports as per [facility] Past Medical History Attestation statement: The following information was validated with the patient. Source: old records reviewed Medical History Fibrocystic breast Blurry vision Family history of gastric cancer Physical exam Mild recurrent major depression Periumbilical mass COVID-19 Anxiety Polyarthralgia History of asthma History of depression History of panic attacks Hx of anxiety disorder Surgical History Ganglion cyst of dorsum of left wrist Periumbilical hernia Hx of section Family History Family History Maternal Aunt History of breast cancer Sister Stomach cancer, Onset Age: 34 Father No problems noted. Mother No problems noted. 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 Cognitive needs: No Hearing needs: No Vision needs: No Physical Exam Vital Signs: Vital Signs: Last Vital Signs Temp 98.3 F 09/24/24 08:03 Pulse 71 09/24/24 08:03 Resp 16 09/24/24 08:03 BP 105/63 09/24/24 08:03 Pulse Ox 100 09/24/24 08:03 O2 Del Method Room Air 09/24/24 08:03 BMI result Body Mass Index 28.7 Const: General: cooperative, healthy appearing and no acute distress Orientation/consciousness: patient oriented x3 Limitations: no limitations HEENT: Head: Yes normal to inspection and Yes atraumatic Ears: hearing grossly normal bilaterally General nose exam: Normal external nose present Face and sinus: Yes normal facial exam Mouth: Normal oral and palatal mucosa present and no drooling Throat: Yes posterior oropharynx normal, Yes tonsils normal, Yes uvula midline, No uvula laterally displaced and No uvular edema Eyes: General: appearance normal, both eyes and all related structures EOM: EOMs intact bilaterally Neck: Neck: Yes normal visual inspection and Yes no meningeal signs Resp: Effort & Inspection: normal respiratory effort, Actively coughing Quality: actively coughing and no respiratory distress Auscultation: clear to auscultation bilaterally, no crackles, no rales and no wheezes Cardio: Rate: regular rate Heart sounds: S1 normal heart sound present and S2 normal heart sound present Skin: Rashes: no rashes Wounds: no wounds Neuro: General: patient oriented x3, tone normal and no meningeal signs Cranial nerves: Yes CN's II-XII intact bilaterally Gait exam (Neuro): Normal gait present Extrem: General: Yes normal to inspection Course Course Course Narrative: -730--COVID/flu/RSV and rapid strep negative -CXR unremarkable Results discussed with patient including worrisome signs and symptoms and strict return precautions, and when to return to the emergency department. They verbalized understanding and feel safe for discharge at this time. Medications Administered Discontinued Medications Generic Name Dose Route Start Last Admin Trade Name Freq PRN Reason Stop Dose Admin Albuterol Sulfate 2 puff 09/24/24 07:28 09/24/24 07:59 Albuterol Sulfate 90 Mcg 8 Gm Inhaler INHALE 09/24/24 07:29 2 puff ONCE ONE Administration Benzonatate 100 mg 09/24/24 07:28 09/24/24 07:36 Benzonatate 100 Mg Capsule PO 09/24/24 07:29 100 mg ONCE ONE Administration Guaifenesin 5 ml 09/24/24 07:29 09/24/24 07:36 Guaifenesin 100 Mg/5 Ml 5 Ml Liquid PO 09/24/24 07:30 5 ml ONCE ONE Administration Medical Decision Making Medical Decision Making [facility] Narrative: 38-year-old Andorran-speaking female with a past medical history anxiety, polyarthralgia, presenting to the ED complaining of dry cough, SOB, chest discomfort with coughing x 3 days. On exam vital signs stable, NAD, nontoxic appearing, oropharynx WNL, lungs CTA, dry active proper appreciated. No respiratory distress. Concern for viral illness vs pneumonia vs bronchitis. Low suspicion for ACS/PE or strep throat. Plan: Viral testing, CXR, symptomatic remedies Please refer to course for remaining clinical decision making, interpretation of labs/imaging results, and discussions with consultants and/or family members. Differential Diagnosis Differential Diagnoses: The differential diagnosis associated with the presentation includes As above Lab Data [facility] Lab Attestation statement: I reviewed the patient's lab results. Labs: Lab Results 09/24/24 09/24/24 Range/Units 02:28 02:32 Influenza Type A (PCR) NEGATIVE (Negative) Influenza Type B (PCR) NEGATIVE (Negative) RSV RNA Qual (PCR) NEGATIVE (Negative) SARS-CoV-2 RNA (RT-PCR) NEGATIVE (Negative) S. pyogenes GrpA EVY Negative (Negative) Independent Interpretation I performed an independent interpretation of an: EKG (My interpretation EKG normal sinus rhythm with sinus arrhythmia rate of 68. CA interval 150. No significant change when compared to prior. No STEMI) and Plain X-Ray Radiology Impression Discussion of test interpretation with radiology: I have reviewed the radiologist's reading. External Record Review External record reviewed: Inpatient record, Office record, Outpatient record, Prior outpatient labs, Prior outpatient radiology, Primary care record and Outside ED record Tests considered The following testing was considered but not selected: As above Prescription Management I considered prescription management with: Pain Medication, Antiviral and Antibiotic Chronic Conditions Patient?s care impacted by: Other Social Determinants Patient?s care significantly limited by Social Determinants of Health including: Other Social Determinant of Health Discharge Plan Discharge Clinical Impression: Acute viral syndrome Patient Disposition: Home, Self-Care Instructions: Viral Syndrome (ED) Additional Instructions: You have a virus No antibiotics are indicated at this time Tessalon Perles for cough, take as needed You may take [id number] cough medication Use albuterol inhaler as needed for shortness of breath Make sure you are staying hydrated. Drink plenty of fluids. Rest Alternate Tylenol and Motrin at home as needed for body aches and fever Follow-up with your doctor. If symptoms persist or worsen return to the emergency department *If you are a child & not tolerating liquid or urinating for more than 6 hours, or fevers are uncontrolled with medications at home, return to the emergency department* Prescriptions: New benzonatate 100 mg capsule 100 mg PO TID PRN (Reason: cough) Qty: 14 0RF No Action clonazepam 1 mg tablet 1 mg PO BID PRN (Reason: anxiety) 30 Days Qty: 60 0RF tramadol 50 mg tablet 50 mg PO BID PRN (Reason: pain) 30 Days Qty: 60 0RF fluconazole 150 mg tablet 150 mg PO DAILY Qty: 1 0RF Rx Instructions: administer on day 1 of therapy baclofen 10 mg tablet 10 mg PO TID PRN (Reason: Pain) cefuroxime axetil 250 mg tablet 250 mg PO BID Qty: 14 0RF ibuprofen 600 mg tablet 600 mg PO Q6H PRN (Reason: pain) Qty: 30 0RF meclizine 25 mg tablet 25 mg PO BID PRN (Reason: dizziness) 7 Days Qty: 14 0RF naproxen [Naprosyn] 500 mg tablet 500 mg PO BID Qty: 20 0RF methocarbamol 750 mg tablet 750 mg PO Q8H Qty: 20 0RF medroxyprogesterone [Depo-Provera] 150 mg/mL suspension 150 mg IM Q12W Qty: 1 4RF Rx Instructions: Start with the beginning of the next menses and then every 12 w Referrals: Sara Stover MD [Primary Care Provider] - 1 week Stand Alone Forms: Work/School Release Interventions: ED Discharge Assessment Last Done: 09/24/24 08:03 Discharge Date/Time: 09/24/24 08:05 Print Language: Andorran
[2024-09-24] MEDS: Benzonatate 100 MG CAPSULE PO (07:36)
[2024-09-24] MEDS: guaiFENesin 100 MG/5 ML 5 ML LIQUID PO (07:36)
[2024-09-24] MEDS: Albuterol Sulfate 90 MCG 8 GM INHALER 2 PUFF INHALE (07:59)
[2024-09-24 08:03] VITALS: BP 105/63; PULSE 71; RESP 16; TEMP 36.8; O2SAT 100
== END 2024-09-24 08:05 | disposition home or self-care (01) ==
PROVIDERS: Emergency Provider Emergency Medicine; PCP Internal Medicine
DX: B34.9 Viral infection, unspecified (principal); R07.89 Other chest pain; R05.9 Cough, unspecified; R06.02 Shortness of breath; Z03.818 Encounter for observation for suspected exposure to other biological agents ruled out
CPT/HCPCS: 0241U; 71046; 87651; 93005; 99284; 99285

== ENCOUNTER → 2024-09-24 02:14 | Outpatient (BNV) | payer OTHER, SELFPAY | PROVIDERS: Emergency Provider Emergency Medicine; PCP Internal Medicine; Visit Provider Internal Medicine Cardiovascular Disease | DX: R94.31 Abnormal electrocardiogram [ECG] [EKG] (principal) | CPT/HCPCS: 93010 ==

== ENCOUNTER → 2024-09-24 02:40 | Outpatient (BNV) | payer OTHER, SELFPAY | PROVIDERS: PCP Internal Medicine; Visit Provider General Practice | DX: R05.9 Cough, unspecified (principal) | CPT/HCPCS: 71046 ==

== ENCOUNTER 2024-10-22 11:40 | Outpatient (AMB) | payer OTHER, SELFPAY ==
[2024-10-22 11:48] VITALS: BP 116/70; PULSE 66; TEMP 36.3; O2SAT 99; BMI 27.8
--- NOTE | 2024-10-22 11:48 | A.OFFPC_ITS ---
Vital Signs 10/22/24 11:48 Height 5 ft 1 in Weight 147 lb 4 oz BMI 27.8 BP 116/70 Blood Pressure Location Lt brachial Position Sitting Pulse 66 Pulse Source Pulse Oximeter Temp 97.3 F Temp Source Temporal Artery Scan Pulse Oximetry (%) 99 Oxygen Delivery Method Room Air Intake Visit Reasons: Head aches Ribbon Weaver Required: Yes Ribbon Weaver Language: Pump Servicer Helper Name: Used tablet- Accompanied by: Self / Same As Patient Allergies codeine [CODEINE] Allergy (Intermediate, Verified 10/22/24 11:54) TACHYCARDIA Medication List - Last Reconciled 10/22/24 by Cierra Stanford MD baclofen 10 mg PO TID PRN clonazepam 1 mg PO BID PRN 30 days ibuprofen 600 mg PO Q6H PRN medroxyprogesterone (Depo-Provera) 150 mg IM Q12W tramadol 50 mg PO BID PRN 30 days Tobacco use date assessed: 10/22/24 Dental Screening Dental Screen Date: 10/22/24 Did you have a dental visit in the last 12 months?: Yes Did you have a dental problem in the last 6 months where you did not have access to dental care?: No Was dental information given to patient?: Patient has dentist HPI Head aches HPI 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 Mother No problems noted. 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 1. Little interest or pleasure in doing things: not at all 2. Feeling down, depressed, or hopeless: not at all 3. Trouble falling or staying asleep, or sleeping too much: not at all 4. Feeling tired or having little energy: not at all 5. Poor appetite or overeating: not at all 6. Feeling bad about yourself - or that you are a failure or have let yourself or your family down: not at all 7. Trouble concentrating on things, such as reading the newspaper or watching television: not at all 8. Moving or speaking so slowly that other people could have noticed. Or the opposite - being so fidgety or restless that you have been moving around a lot more than usual: not at all 9. Thoughts that you would be better off or of hurting yourself in some way: not at all Total score: 0 Depression Screening Interpretation: Positive Depression Screening Follow-up: Existing condition and Follow-up Visit Requested Depression Screening Done: Yes 67213 - PHQ-9 Billing: Yes Source: Developed by Drs. Freddy Simental, Tiff Bullock, Nolan Chaney and colleagues, with an educational kaci from [employer]. Thrive Questionnaire Date Thrive assessed: 10/22/24 I am a: Patient What is your living situation today?: I have a steady place to live Within the past 12 months, did the food you bought not last and you didn't have the money to get more?: Never true Within the past 12 months, did you worry whether your food would run out before you got money to buy more?: Never true Do you have trouble paying for medicines?: No Do you have trouble getting transportation to medical appointments?: No Do you have trouble paying your heating and electricity bill?: No Do you have trouble taking care of your child, family member or friend?: No Do you have trouble with day-to-day activities such as bathing, preparing meals, shopping, managing finances, etc.?: No Are you currently unemployed and looking for a job?: No Are you interested in more education?: No Please select the resources that you would like help with: None Currently or been in a relationship where the following occur: No concerns reported THRIVE Score: 0 AUDIT C Alcohol Use Questionnaire (AUDIT-C) 1. How often do you have a drink containing alcohol?: 2-4 times a month 2. How many drinks containing alcohol do you have on a typical day when you are drinking?: 1 or 2 3. How often do you have six or more drinks on one occasion?: Less than monthly Total Score: 3 SINDHU-7 AMB Questionnaire SINDHU-7 Date SINDHU - 7 assessed: 10/22/24 Feeling nervous, anxious, or on edge: 0 = Not at all Not being able to stop or control worryin = Not at all Worrying too much about different things: 0 = Not at all Trouble relaxin = Not at all Being so restless that it is hard to sit still: 0 = Not at all Becoming easily annoyed or irritable: 0 = Not at all Feeling afraid as if something awful might happen: 0 = Not at all Total SINDHU-7 score (0-4 normal; 5-9 mild; 10-14 moderate; 15-21 severe): 0 Source: Developed by Drs. Freddy Simental, Tiff Bullock, Nolan Chaney and colleagues, with an educational kaci from [employer]. SINDHU-7 Assessment Billing SINDHU-7 Assessment Tool: SINDHU-7 Assessment 58218 Physical exam (Primary Care) Vital Signs: Last Vital Signs Temp 97.3 F 10/22/24 11:48 Pulse 66 10/22/24 11:48 BP 116/70 10/22/24 11:48 Pulse Ox 99 10/22/24 11:48 Oxygen Delivery Method Room Air 10/22/24 11:48 BMI result Body Mass Index 27.8 Tobacco/Smoking Status: Tobacco use Status Tobacco use date assessed 10/22/24 10/22/24 12:02 Patient Tobacco Use Status Former Tobacco user 10/22/24 12:02 Tobacco use type Cigarette 10/22/24 12:02 e-Cigarette/Vaping Use Never Used 10/22/24 12:02 PHQ-9: PHQ-9 Score PHQ-9: Total score 0 10/22/24 12:02 Depression Screening Interpretation: Positive Depression Screening Follow-up: Existing condition and Follow-up Visit Requested Thrive Assessment: Date of Thrive Assessment Date Thrive assessed 10/22/24 10/22/24 12:02 Currently or been in a relationship where the following occur: No concerns reported Const General: alert; No acute distress Eyes Conjunctivae: conjunctivae normal Resp Auscultation: clear to auscultation bilaterally Cardio Rate: regular rate Rhythm: regular rhythm GI Inspection: Yes normal to inspection Extrem General: Yes normal to inspection and No edema Coding Level of Care Code Est Pt Level 4 (07441) Diagnoses Degeneration of intervertebral disc of lumbar region with discogenic back pain M51.360 Disc-related pain type: discogenic back pain only Overweight (BMI 25.0-29.9) E66.3 Dizziness R42 Anemia D64.9 Insomnia G47.00 Additional Codes SINDHU-7 Assessment Billing - SINDHU-7 Assessment Tool: SINDHU-7 Assessment [id number] ([id number]) PHQ-9 - 97327 - PHQ-9 Billing: Yes ([id number]) Assessment & Plan Assessment & Plan (1) Lumbar degenerative disc disease: Comment: Pain management contract signed 06/20/2024. Urine toxicology done 06/20/2024 Code(s): M51.369 - Other intervertebral disc degeneration, lumbar region without mention of lumbar back pain or lower extremity pain Category: Medical Qualifiers: Disc-related pain type: discogenic back pain only Qualified Code(s): M51.360 - Other intervertebral disc degeneration, lumbar region with discogenic back pain only Plan: Keep active on tramadol p.r.n. (2) Overweight (BMI 25.0-29.9): Code(s): E66.3 - Overweight Category: Medical (3) Dizziness: Code(s): R42 - Dizziness and giddiness Category: Medical (4) Anemia: Code(s): D64.9 - Anemia, unspecified Category: Medical (5) Insomnia: Code(s): G47.00 - Insomnia, unspecified Category: Medical Plan History of Present Illness The patient is a 38-year-old female presenting with dizziness. The symptom onset occurred a few days ago, and it has become a repeating issue characterized by a sensation of heaviness and interspersed numbness. Dizziness is also associated with episodes of nocturnal shortness of breath. Previously, in August 2022, a CT scan was conducted when similar symptoms existed. Her medical history includes lumbar degenerative disc disease, managed with tramadol, and major depressive disorder. Medication usage includes tramadol, clonazepam (almost daily), and ibuprofen, though she chooses based on need. She was given Depo Provera but has not initiated it while awaiting a gynecological consultation. An anemia diagnosis was established based on July lab results, with a hemoglobin level of 11.3 g/dL, and a urinalysis at the time suggested infection. Viral syndrome treatment occurred earlier, manifesting with upper respiratory symptoms and chest complications, though resolved, with a chest X-ray ruling out acute conditions. The patient experiences chronic constipation and recent attempts at increased activity exacerbated dizziness manifestations. Additionally, sleep disturbance contributes to her condition management challenges. Health Maintenance - Discussed the importance of maintaining hydration, diet rich in fibrous vegetables, and regular physical activity to combat constipation. - Emphasized the importance of follow-up on anemia with periodic blood work. - Advised avoiding concurrent use of ibuprofen and naproxen to prevent gastrointestinal and renal complications. Social History - Engages in physical exercise attempted recently, but constrained by dizziness and sleep disturbances. - Usage of clonazepam and tramadol indicative of managing anxiety and pain, affecting daily living. - Reports poor sleep quality affecting day-to-day functionality. Review of Systems - Neurological: Reports dizziness, feeling of heaviness in the head, nocturnal shortness of breath. - Gastrointestinal: Reports constipation. - Sleep: Reports poor sleep quality. - Musculoskeletal: Denies recent trauma or falls affecting current symptoms. - Respiratory: Denies snoring, but episodes of nocturnal breathlessness. Physical Exam - Respiratory- No acute distress observed upon auscultation. - Neurological- Examination indicates normal findings with coordinated function. - Musculoskeletal- Muscular tenderness noted upon physical touch with no indication of recent trauma. Results - Labs: Mild anemia with hemoglobin 11.3 g/dL, normal platelet count, electrolytes, renal and liver function are normal. - Urinalysis (August 17): Elevated white blood cells suggestive of a possible infection. - Imaging: Recent chest X-ray unremarkable without acute findings. Plan For the symptom of dizziness, I will conduct further blood tests to re-evaluate her anemia status, and assess her medication use notably, tramadol and clonazepam for possible causative effects. For her constipation, changes in dietary and hydration habits are recommended, supported by a medication prescription in pill form. For sleep disturbances, a nighttime medication will be prescribed for better sleep. Regarding the urinalysis findings, the possibility of a urinary tract infection requires investigation. Further discussion and caution regarding the concurrent use of NSAIDs will be emphasized with her. Reinforcement of a healthy lifestyle through regular activity and dietary habits will be prioritized. Patient was informed and verbally consented to the use of an ambient scribe for clinic note documentation during this visit. Discussion Notes I discussed with the patient potential causes for her dizziness, emphasizing the role of medication side effects and mild anemia as contributors. I explained the outlined plan to conduct further testing of her hemoglobin levels and adjust medications as necessary. Consideration is given to aligning her dietary needs with physiologically supportive solutions for constipation. We covered this alongside the delivery of appropriate medication for bowel management and sleep support. The potential for a urinary infection remains under investigation, instructing prudence on NSAID use concurrently with antibiotics. Decisively, ensuring the engagement in a balanced and healthy lifestyle was stressed. Upon departure, I advised precautions to avoid prevalent influenza, RSV, and COVID exposure. Patient Instructions - Take any prescribed medications exactly as directed. - Ensure adequate water intake daily. - Increase dietary fiber with more vegetables. - Avoid using ibuprofen and naproxen together. - Monitor sleep quality and follow prescribed sleep support cautiously. - Return for follow-up on the blood tests and review of existing symptoms. - Call sooner if you experience any worsening symptoms like increased shortness of breath or unmanageable dizziness. - Practice flu, COVID-19, and RSV precautions, like wearing masks and maintaining hygiene. Orders: Orders Complete Blood Count Auto Diff Today D64.9 - Anemia, unspecified Ferritin Today D64.9 - Anemia, unspecified IRON PROFILE Today D64.9 - Anemia, unspecified Reticulocyte Count Today D64.9 - Anemia, unspecified Vitamin B12 and Folate Today D64.9 - Anemia, unspecified UA CC w/rflx Micro + Cult Today R30.0 - Dysuria, R42 - Dizziness and giddiness Comprehensive Met. Panel Today R42 - Dizziness and giddiness Free T4 (Free Thyroxine) Today R42 - Dizziness and giddiness Thyroid Stimulating Hormone Today R42 - Dizziness and giddiness Medications: New trazodone 50 mg PO BEDTIME PRN 30 tabs 1RF sleep G47.00 - Insomnia, unspecified sennosides-docusate sodium 8.6-50 mg (Senna Plus) 2 tab-caps (2 x 8.6-50 mg) PO BEDTIME 60 tabs 1RF K59.00 - Constipation, unspecified
--- OUTSIDE RECORDS SUMMARY | 2024-10-22 14:51 | XMS_ITS | Clinical Summary ---
Author Organization [facility] Address [address] [place] [address] Care Team Providers Care Systems Security Analyst Name Role Phone Unavailable Primary Care Provider [...]
--- OUTSIDE RECORDS SUMMARY | 2024-10-22 14:51 | XMS_ITS | Encounter Summary ---
Author Organization [facility] Address [address] [place] [address] 7t [place] [address] Care Team Providers Care Insurance Sales Assistant Name Role Phone Unavailable Primary Care Provider [...]
== END 2024-10-22 12:32 | disposition home or self-care (01) ==
PROVIDERS: PCP Internal Medicine; Visit Provider Internal Medicine
DX: M51.360 Other intervertebral disc degeneration, lumbar region with discogenic back pain only (principal); E66.3 Overweight; R42 Dizziness and giddiness; D64.9 Anemia, unspecified; G47.00 Insomnia, unspecified

== ENCOUNTER → 2024-10-22 11:40 | Outpatient (BNVA) | payer OTHER, SELFPAY | PROVIDERS: PCP Internal Medicine; Visit Provider Internal Medicine | DX: M51.360 Other intervertebral disc degeneration, lumbar region with discogenic back pain only (principal); R42 Dizziness and giddiness; E66.3 Overweight; Z68.27 Body mass index [BMI] 27.0-27.9, adult; D64.9 Anemia, unspecified; G47.00 Insomnia, unspecified; Z71.3 Dietary counseling and surveillance | CPT/HCPCS: 96127; 99212 ==

== ENCOUNTER 2024-12-11 13:11 | Outpatient (AMB) | payer OTHER, SELFPAY ==
--- NOTE | 2024-12-11 13:13 | MHC.OFFVIS ---
Vital Signs 12/11/24 13:14 Height 5 ft 1 in Weight 147 lb BMI 27.8 Intake Visit Reasons: New Patient/vaginal discharge Highway Worker Required: Yes Highway Worker Language: Waste Water Plant Operator Services: Highway Worker Present (in person) Highway Worker Name: Susana TOLLIVER Information Interpreted: non-clinical & clinical Plate Painter: Plate Painter Present (Susana TOLLIVER) Accompanied by: Self / Same As Patient Allergies codeine [CODEINE] Allergy (Intermediate, Verified 12/11/24 13:15) TACHYCARDIA HPI Comments Details: The patient is complaining of vaginal discharge, clear to whitish, associated with burning and itching but no foul odor. It started few days ago ago. The patient is interested in STD screening [facility] Medical History Fibrocystic breast Blurry vision Family history of gastric cancer Physical exam Mild recurrent major depression Periumbilical mass COVID-19 Anxiety Polyarthralgia History of asthma History of depression History of panic attacks Hx of anxiety disorder Surgical History Ganglion cyst of dorsum of left wrist Periumbilical hernia Hx of section Family History Maternal Aunt History of breast cancer Sister Stomach cancer, Onset Age: 34 Father No problems noted. Mother No problems noted. 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 for 3 days was sent to the patient's pharmacy. The patient was instructed to call if symptoms don't improve in 48 hours. (2) Encounter for screening examination for sexually transmitted disease: Code(s): Z11.3 - Encounter for screening for infections with a predominantly sexual mode of transmission Category: Medical Plan: STD screening tests done includes: BV panel for trichomonas, GC/CT will send patient for serology std screening for HIV, RPR, Hep b s Ag, HepC Ab. Instructions given the patient to schedule a follow-up appointment for repeat serology screen in 6 months for possible false negatives. Orders: Orders HIV Ab/Ag Today Z20.2 - Contact with and (suspected) exposure to infections with a predominantly sexual mode of transmission Syphilis Screen Today Z20.2 - Contact with and (suspected) exposure to infections with a predominantly sexual mode of transmission Hepatitis B Surface Antigen Today Z20.2 - Contact with and (suspected) exposure to infections with a predominantly sexual mode of transmission Hepatitis C Antibody Today Z20.2 - Contact with and (suspected) exposure to infections with a predominantly sexual mode of transmission Medications: New terconazole 0.8% 1 appful vaginal BEDTIME 3 days 20 grams 0RF Discontinued medroxyprogesterone (Depo-Provera) Start with the beginning of the next menses and then every 12 w Discontinued Reason: Doctor's Order 150 mg IM Q12W 1 mL 4RF Coding Level of Care Code Est Pt Level 3 (99081) Diagnoses Vaginitis N76.0 Encounter for screening examination for sexually transmitted disease Z11.3
[2024-12-11 13:14] VITALS: BMI 27.8
--- OUTSIDE RECORDS SUMMARY | 2024-12-11 15:36 | XMS_ITS | Encounter Summary ---
Author Organization [facility] Address [address] [place] [address] 7t [place] [address] Care Team Providers Care Marketing Teacher Name Role Phone Unavailable Primary Care Provider [...]
--- OUTSIDE RECORDS SUMMARY | 2024-12-11 15:36 | XMS_ITS | Clinical Summary ---
Author Organization [facility] Address [address] [facility] [address] [place] [address] Care Team Providers Care Manufacturing Millwright Name Role Phone Unavailable Primary Care Provider [...] or Tdap) 10/15/2023 10/15/2013, 12/18/2006 COVID-19 Vaccine (2023-2 5 season) 2024 Influenza Vaccine (#1) 04/21/202405/08/201 7, 06/25/2015 Mammogram 2024 Zoster Vaccines (1 of 2) 2034 RSV [...]
== END 2024-12-11 13:54 | disposition home or self-care (01) ==
LOC: HO.HWS 13:11
PROVIDERS: PCP Internal Medicine; Visit Provider Obstetrics & Gynecology
DX: N76.0 Acute vaginitis (principal); Z11.3 Encounter for screening for infections with a predominantly sexual mode of transmission
CPT/HCPCS: 99213

== ENCOUNTER 2024-12-11 13:11 | Outpatient (REF) | payer OTHER, SELFPAY ==
[2024-12-11 15:53] LABS: CT PCR NOT DETECTED (Not Detect.); NG PCR NOT DETECTED (Not Detect.)
--- OUTSIDE RECORDS SUMMARY | 2024-12-11 16:09 | XMS_ITS | Encounter Summary ---
Author Organization [employer] [facility] Address [address] [place] [address] 7t [place] [address] Care Team Providers Care Nurses' Registry Director Name Role Phone Unavailable Primary Care Provider [...]
--- OUTSIDE RECORDS SUMMARY | 2024-12-11 16:09 | XMS_ITS | Clinical Summary ---
Author Organization [facility] Address [address] [facility] [address]t [place] [address] Care Team Providers Care Wood Web Weaving Machine Operator Name Role Phone Unavailable Primary Care Provider [...]
[2024-12-11 21:44] LABS: Bacterial Vaginosis PCR NEGATIVE (Negative); Candida Group PCR DETECTED (Not Detect); Candida glab krusei PCR NOT DETECTED (Not Detect); Trichomonas vaginalis PCR NOT DETECTED (Not Detect)
[2024-12-12 03:55] LABS: Syphilis Screen Nonreactive (Nonreactive)
[2024-12-12 04:02] LABS: HBsAGNum1 0.25 S/CO (0.00-0.99); HIV AB/AG Nonreactive (Nonreactive); HIV Num 1 0.06 S/CO (0.00-0.99); Hepatitis B Surface Antigen Negative (Negative); ~HepC Num1 0.14 S/CO (0.00-0.79); ~Hepatitis C Antibody Nonreactive (Nonreactive)
== END 2024-12-11 13:12 | disposition home or self-care (01) ==
LOC: HO.LAB 13:11
PROVIDERS: PCP Internal Medicine; Visit Provider Obstetrics & Gynecology
DX: N89.8 Other specified noninflammatory disorders of vagina (principal); Z11.3 Encounter for screening for infections with a predominantly sexual mode of transmission; Z20.2 Contact with and (suspected) exposure to infections with a predominantly sexual mode of transmission
CPT/HCPCS: 81515; 86780; 86803; 87340; 87389; 87491; 87591; 99212

== ENCOUNTER → 2025-02-13 22:27 | Outpatient (BNV) | payer OTHER, SELFPAY | PROVIDERS: Emergency Provider Emergency Medicine; PCP Internal Medicine; Visit Provider Radiology Diagnostic Radiology | DX: R07.9 Chest pain, unspecified (principal) | CPT/HCPCS: 71045 ==

== ENCOUNTER 2025-02-13 22:43 | Emergency (ER) | payer OTHER, SELFPAY ==
--- NOTE | 2025-02-13 | ECG_ITS ---
Test Reason : CHEST PAIN Blood Pressure : */* mmHG Vent. Rate : 78 BPM Atrial Rate : 78 BPM P-R Int : 148 ms QRS Dur : 90 ms QT Int : 370 ms P-R-T Axes : 39 14 18 degrees QTcB Int : 421 ms Normal sinus rhythm Normal ECG When compared with ECG of 24-Sep-2024 02:14, No significant change was found Referred By: Generic ED Physician Electronically Signed By: LISS GARCIA
--- NOTE | ~2025-02-13 | XR_ITS ---
CLINICAL HISTORY: CP 1 view chest x-ray Comparison: Prior chest radiographs most recently on 09/24/2024 Findings: No consolidation or effusion. Normal size heart. No acute fracture. IMPRESSION: 1. No acute findings. This document has been electronically signed by: Yo Tirado MD on 02/14/2025 01:04:16
[2025-02-13 23:10] VITALS: BP 116/70; PULSE 61; RESP 16; TEMP 36.6; O2SAT 91; BMI 28.0
[2025-02-13 23:32] LABS: Basophils Percent Auto 0.2 % (0-2); Eosinophils Absolute Auto 0.1 X10*3/uL (0.0-0.4); Eosinophils Percent Auto 1.4 % (0-4); Hemoglobin 10.4 g/dl (12.0-16.0); Imm Gran Abs Auto 0.02 X10*3/uL (0.00-0.03); Imm Gran Pct Auto 0.3 % (0.0-0.4); Lymphocytes Percent Auto 31.2 % (20-40); MANUAL DIFF FLAG NO; Mean Corpuscular HGB Conc 32.5 g/dl (31.0-35.0); Mean Corpuscular Hemoglobin 25.7 pg (27.0-33.0); Mean Corpuscular Volume 79.2 fL (80.0-98.0); Mean Platelet Volume 10.3 fL (9.4-12.3); Monocytes Absolute Auto 0.4 X10*3/uL (0.1-1.2); Neutrophils Absolute Auto 3.9 x10*3/uL (2.0-8.3); Neutrophils Percent Auto 60.9 % (45-73); Platelet Count 248 X10*3/uL (160-400); Red Blood Count 4.04 X10*6/uL (4.20-5.50); Red Cell Distribution Width 15.3 % (11.0-16.0); White Blood Count 6.4 X10*3/uL (4.8-10.8)
[2025-02-13 23:48] LABS: Alanine Aminotransferase 10 U/L (0-31); Albumin Level 4.3 g/dL (3.5-5.0); Alkaline Phosphatase 68 U/L (39-117); Anion Gap 10 (12-20); Aspartate Amino Transferase 20 U/L (5-31); Bilirubin Total 1.1 mg/dL (0.0-1.0); Blood Urea Nitrogen 8 mg/dL (9-16); Calcium 8.9 mg/dL (8.4-10.2); Carbon Dioxide 23 mmol/L (22-29); Chloride 111 mmol/L (96-108); Estimated Glomerular Filt Rate > 60; Glucose Random 94 mg/dL (60-115); Potassium 3.2 mmol/L (3.3-5.1); Sodium 141 mmol/L (135-145); Total Protein 6.9 g/dL (6.5-8.0)
[2025-02-14 00:04] VITALS: O2SAT 99
[2025-02-14 00:09] LABS: Troponin-I High Sensitivity < 2.7 ng/L (<3.5-17.0)
--- NOTE | 2025-02-14 00:17 | ED.CHESTPAIN ---
HPI - Chest Pain General Chief Complaint: Chest Pain Stated Complaint: chest,left arm pain Time Seen by Provider: 02/14/25 00:10 Source: patient Mode of arrival: ambulatory Limitations: language barrier (Patient is seen with in-person director multiple sclerosis center [facility]) History of Present Illness ED Provider: Peter MULLEN HPI narrative: The patient is a 39-year-old female with history of anxiety, insomnia, anemia, constipation, and DJD of the lumbar spine, presenting to the ED for evaluation of bilateral neck pain with mild headache and lightheadedness over the past week with associated chest pain/racing heart palpitations and numbness of the left arm which began today. The patient denies associated fever/chills, pleurisy, shortness of breath, abdominal pain, vomiting, diarrhea, dysuria, recent sick contacts, or recent trauma. Patient reports symptoms increased after she had a verbal argument with an individual today. The patient reports taking Klonopin with some improvement in symptoms. The patient reports she has been experiencing increased stress over the past weeks and symptoms began. Patient denies taking other medications for her symptoms. The patient has not contacted her PCP regarding the symptoms. Related Data Home Medications ?Medication ?Instructions ?Recorded ?Confirmed baclofen 10 mg tablet 10 mg PO TID PRN Pain 02/15/24 10/22/24 Previous Rx's ?Medication ?Instructions ?Recorded ibuprofen 600 mg tablet 600 mg PO Q6H PRN pain #30 tabs 08/02/23 sennosides 8.6 mg-docusate sodium 2 tab-cap (2 x 8.6-50 mg) PO 10/22/24 50 mg tablet (Senna Plus) BEDTIME #60 tabs trazodone 50 mg tablet 50 mg PO BEDTIME PRN sleep #30 tabs 10/22/24 terconazole 0.8 % vaginal cream 1 appful vaginal BEDTIME 3 days 12/11/24 #20 grams clonazepam 1 mg tablet 1 mg PO BID PRN anxiety 30 days 01/06/25 #60 tabs tramadol 50 mg tablet 50 mg PO BID PRN pain 30 days #60 01/06/25 tabs Allergies Allergy/AdvReac Type Severity Reaction Status Date / Time codeine (CODEINE) Allergy Intermediate TACHYCARDIA Verified 02/13/25 23:14 [facility] Past Medical History Medical History Fibrocystic breast Blurry vision Family history of gastric cancer Physical exam Mild recurrent major depression Periumbilical mass COVID-19 Anxiety Polyarthralgia History of asthma History of depression History of panic attacks Hx of anxiety disorder Surgical History Ganglion cyst of dorsum of left wrist Periumbilical hernia Hx of section Family History Family History Maternal Aunt History of breast cancer Sister Stomach cancer, Onset Age: 34 Father No problems noted. Mother No problems noted. Family/Other FH: mental illness Social History Social History Housing: Apartment Alcohol intake: current Alcohol intake frequency: holidays/special occasions only Alcohol type: beer Patient Tobacco Use Status: Former Tobacco user Tobacco use type: Cigarette e-Cigarette/Vaping Use: Never Used Second Hand Smoke Exposure: No Advance Directives: No Do you have a plan to hurt others: No Plan service: No Current occupational status: employed Current occupation: [employer] Cognitive needs: No Hearing needs: No Vision needs: No Physical Exam Vital Signs: Vital Signs: Last Vital Signs Temp 97.9 F 02/13/25 23:10 Pulse 61 02/13/25 23:10 Resp 16 02/13/25 23:10 BP 116/70 02/13/25 23:10 Pulse Ox 99 02/14/25 00:04 O2 Del Method Room Air 02/14/25 00:04 BMI result Body Mass Index 28.0 CONSTITUTIONAL: The patient appears non-toxic, well nourished and in no acute distress. Vital signs as documented. HEAD: Atraumatic, normocephalic. EYES: EOMs grossly intact, pupils equal, conjunctiva clear, no exudate. ENT: Nares patent, no discharge. Airway patent, no audible stridor, visible mucosa is pink and moist without noted lesions. NECK: Trachea is midline, no obvious masses or gross abnormalities. No midline cervical tenderness, no crepitus or step-off. Patient reports tenderness of the bilateral cervical paraspinal muscles radiating to the bilateral trapezius. Full nonpainful range of motion. CHEST: Symmetric movement, normal appearance. LUNGS: LS present and CTAB, no w/r/r. Non-labored work of breathing. CARDIAC: Regular Rhythm, S1/S2 appreciated, no murmurs, rubs or gallops. ABDOMEN: Abdomen soft and non-tender x4 quadrants, no palpable masses or organomegaly. No CVAT bilaterally. : Deferred. EXTREMITIES: Normal tone, moves all extremities spontaneously without reported pain. No obvious acute injury or deformity noted. NEURO: Alert and oriented x3, CN II-XII appear grossly intact. Cerebellar Functioning grossly intact. No obvious sensory or motor deficits. Speech clear and appropriate. PSYCH: normal affect, appropriate eye contact, fluid speech, with appropriate response to questioning. No reported suicidality or homicidality. SKIN: Warm, dry, color appropriate, normal turgor. No rashes noted. Medications Administered Discontinued Medications Generic Name Dose Route Start Last Admin Trade Name Freq PRN Reason Stop Dose Admin Acetaminophen 975 mg 02/14/25 01:28 02/14/25 02:12 Acetaminophen 325 Mg Tablet PO 02/14/25 01:29 975 mg ONCE ONE Administration Cyclobenzaprine HCl 10 mg 02/14/25 01:28 02/14/25 02:12 Cyclobenzaprine Hcl 10 Mg Tablet PO 02/14/25 01:29 10 mg ONCE ONE Administration Ibuprofen 600 mg 02/14/25 01:28 02/14/25 02:12 Ibuprofen 600 Mg Tablet PO 02/14/25 01:29 600 mg ONCE ONE Administration Medical Decision Making Medical Decision Making [facility] Narrative: 12:36 AM 02/14/2025: Patient is a 39-year-old female presenting to the ED for evaluation of 1 week of bilateral neck pain with associated headache and racing heart palpitations now with lightheadedness and numbness radiating to the left arm which increased with arguing and improved after anxiolytics. The patient in the ED is well-appearing, exam is benign, no acute findings, no reported trauma. Patient's laboratory evaluation is reassuring, no leukocytosis, anemia, significant electrolyte abnormality, or DELMAR initial, troponin is negative, EKG is nonischemic, chest x-ray shows no focal consolidation or other acute pathology, patient likely suffering from some sensation of stress with musculoskeletal tension with subsequent tension headache. The patient will be treated with anti-inflammatories, muscle relaxer, and we will repeat troponin at 01:27 hours. Pending improvement in symptoms and unremarkable 2nd troponin, patient will be appropriate for discharge and outpatient follow-up. 3:19 AM 02/14/2025: The patient's repeat troponin is negative. Patient will be discharged to follow up with PCP. Admission/Observation Consideration of admission/observation: Escalation of care including admission/observation considered Lab Data 02/13/25 23:27 02/13/25 23:27 Labs: Lab Results 02/13/25 02/14/25 Range/Units 23:27 02:23 WBC 6.4 (4.8-10.8) X10*3/uL RBC 4.04 L (4.20-5.50) X10*6/uL Hgb 10.4 L (12.0-16.0) g/dl Hct 32.0 L (37.0-47.0) % MCV 79.2 L (80.0-98.0) fL MCH 25.7 L (27.0-33.0) pg MCHC 32.5 (31.0-35.0) g/dl RDW 15.3 (11.0-16.0) % Plt Count 248 (160-400) X10*3/uL MPV 10.3 (9.4-12.3) fL Immature Gran % (Auto) 0.3 (0.0-0.4) % Neut % (Auto) 60.9 (45-73) % Lymph % (Auto) 31.2 (20-40) % [place] % (Auto) 6.0 (2-11) % Eos % (Auto) 1.4 (0-4) % Baso % (Auto) 0.2 (0-2) % Lymph # (Auto) 2.0 (1.2-4.9) X10*3/uL [place] # (Auto) 0.4 (0.1-1.2) X10*3/uL Eos # (Auto) 0.1 (0.0-0.4) X10*3/uL Baso # (Auto) 0.0 (0.0-0.2) X10*3/uL Abs Immat Gran (auto) 0.02 (0.00-0.03) X10*3/uL Absolute Neuts (auto) 3.9 (2.0-8.3) x10*3/uL Absolute Nucleated RBC 0.000 (0.0-0.012) X10*3/uL Nucleated RBC % (auto) 0.0 (0.0-0.2) /100WBC Sodium 141 (135-145) mmol/L Potassium 3.2 L (3.3-5.1) mmol/L Chloride 111 H (96-108) mmol/L Carbon Dioxide 23 (22-29) mmol/L Anion Gap 10 L (12-20) BUN 8 L (9-16) mg/dL Creatinine 0.65 (0.5-1.4) mg/dL Estim Creat Clear Calc 101.0 Estimated GFR > 60 Random Glucose 94 (60-115) mg/dL Calcium 8.9 (8.4-10.2) mg/dL Total Bilirubin 1.1 H (0.0-1.0) mg/dL AST 20 (5-31) U/L ALT 10 (0-31) U/L Alkaline Phosphatase 68 (39-117) U/L Troponin I High Sens < 2.7 < 2.7 (<3.5-17.0) ng/L Total Protein 6.9 (6.5-8.0) g/dL Albumin 4.3 (3.5-5.0) g/dL Independent Interpretation I performed an independent interpretation of an: EKG (EKG shows sinus rhythm with a rate of 78, no evidence of acute ischemia, no ST elevation, no ectopy. QTC 421, compared to previous on 09/24/2024 there are no acute morphology changes.) and Plain X-Ray (No focal consolidation noted, no other acute cardiopulmonary process noted.) Radiology Impression Discussion of test interpretation with radiology: I have reviewed the radiologist's reading. Radiologist Impression: Comparison: Prior chest radiographs most recently on 09/24/2024 Findings: No consolidation or effusion. Normal size heart. No acute fracture. IMPRESSION: 1. No acute findings. External Record Review External record reviewed: Outpatient record and Primary care record Discharge Plan Discharge Clinical Impression: Acute tension-type headache, Anxiety with somatization Patient Disposition: Home, Self-Care Instructions: Tension Headache (ED), Anxiety (ED) Additional Instructions: Lola por elegir el [facility] para mena atenci?n de hoy. Afortunadamente, mean evaluaci?n de laboratorio, radiograf?a de t?rax, electrocardiograma y examen de hoy son tranquilizadores. No hay evidencia de ninguna causa aguda card?neva, infecciosa, pulmonar, coagulop?milton (co?gulo sangu?bia) ni de ninguna otra causa peligrosa para bindu s?ntomas. En eliazar momento, no hay evidencia de un proceso malvin que requiera ingreso hospitalario ni observaci?n continua en urgencias, y es seguro darle de melyssa. Bindu s?ntomas de hoy podr?an ser anthony expresi?n corporal de mena reciente aumento de estr?s, anthony condici?n conocida irina somatizaci?n. Orosi parece estar causando tensi?n en los m?sculos cervicales y un dolor de abdias posterior, conocido irina cefalea tensional. Puede demetrius dosis alternas (escalonadas) de ibuprofeno 600 mg y Tylenol 1000 mg cada 4 horas seg?n sea necesario para cualquier dolor adicional. Mant?ngase ilsa hidratado y descanse lo suficiente. Por favor, consulte con mena m?dico de cabecera para anthony reevaluaci?n, un manejo adicional de bindu s?ntomas y atenci?n preventiva continua. Si no tiene un m?dico de cabecera, llame a [facility] al [phone] para asignarle remberto nuevo. Mientras espera la asignaci?n de mena nuevo m?dico de cabecera, puede llamar a nuestra Cl?naty de Atenci?n [facility] al [phone] para necesidades que no nely de emergencia. Por favor, regrese a urgencias si presenta un cambio repentino o grave en bindu s?ntomas, fiebre superior a 38 ?C que no mejora con Tylenol o ibuprofeno, v?mitos recurrentes o cualquier otro s?ntoma o inquietud nuevo o que empeore. Thank you for choosing [facility]'s Emergency Department for your care today. Thankfully your laboratory evaluation, chest x-ray, EKG, and exam today are reassuring, there is no evidence of any acute cardiac, infectious, pulmonary, coagulopathic (blood clot), or other dangerous cause for your symptoms. At this time there is no evidence of an acute process requiring admission to the hospital or continued ED observation, and it is safe to discharge you home. Your symptoms today may be your body's expression of your recent increased stress, a condition known as somatization. This appears to be causing tension of your cervical muscles and a subsequent headache, known as a tension headache. You may take alternating (staggered) doses of ibuprofen 600mg and Tylenol 1000mg every 4 hours as needed for any additional pain. Please stay well hydrated and get plenty of rest. Please follow up with your primary care physician for re-evaluation, additional management of your symptoms, and continued preventative care. If you do not have a primary care physician, please call the [facility] at [phone] to establish a new primary care physician. While waiting to establish your new primary care physician, you can call our Walk-in [facility] at [phone] for non-emergency needs. Please return to the emergency department if you develop a severe or sudden change in your symptoms, a fever over 100.4 that does not improve with Tylenol or Ibuprofen, recurrent vomiting, or any other new or worsening symptoms or concerns. Prescriptions: No Action tramadol 50 mg tablet 50 mg PO BID PRN (Reason: pain) 30 Days Qty: 60 0RF clonazepam 1 mg tablet 1 mg PO BID PRN (Reason: anxiety) 30 Days Qty: 60 0RF baclofen 10 mg tablet 10 mg PO TID PRN (Reason: Pain) ibuprofen 600 mg tablet 600 mg PO Q6H PRN (Reason: pain) Qty: 30 0RF trazodone 50 mg tablet 50 mg PO BEDTIME PRN (Reason: sleep) Qty: 30 1RF sennosides-docusate sodium [Senna Plus] 8.6-50 mg tablet 2 tab-cap PO BEDTIME Qty: 60 1RF terconazole 0.8 % cream 1 appful vaginal BEDTIME 3 Days Qty: 20 0RF Referrals: Sara Stover MD [Primary Care Provider, Internal Medicine] Clinical Impression: Anxiety with somatization; Acute tension-type headache Print Language: Malaysian
[2025-02-14] MEDS: Cyclobenzaprine HCl 10 MG TABLET PO (02:12)
[2025-02-14] MEDS: Acetaminophen 325 MG TABLET 975 MG PO (02:12)
[2025-02-14] MEDS: Ibuprofen 600 MG TABLET PO (02:12)
[2025-02-14 03:15] LABS: Troponin-I High Sensitivity < 2.7 ng/L (<3.5-17.0)
[2025-02-14 04:03] VITALS: BP 116/78; PULSE 78; RESP 18; TEMP 36.4; O2SAT 99
== END 2025-02-14 04:04 | disposition home or self-care (01) ==
PROVIDERS: Physician Assistant; Emergency Provider Emergency Medicine; PCP Internal Medicine
DX: G44.209 Tension-type headache, unspecified, not intractable (principal); F41.8 Other specified anxiety disorders; F45.0 Somatization disorder; M54.2 Cervicalgia; R07.9 Chest pain, unspecified
CPT/HCPCS: 36415; 71045; 80053; 84484; 85025; 93005; 99283; 99284

== ENCOUNTER → 2025-02-13 22:46 | Outpatient (BNV) | payer OTHER, SELFPAY | PROVIDERS: Emergency Provider Emergency Medicine; PCP Internal Medicine; Visit Provider Internal Medicine | DX: R07.9 Chest pain, unspecified (principal) | CPT/HCPCS: 93010 ==

== ENCOUNTER 2025-02-24 13:21 | Outpatient (AMB) | payer OTHER, SELFPAY ==
--- NOTE | 2025-02-24 13:26 | MHC.PC.OV ---
Vital Signs 02/24/25 13:28 Height 5 ft 1 in Weight 147 lb BMI 27.8 BP 112/82 Blood Pressure Location Lt brachial Position Sitting Intake Visit Reasons: Medication review Radiology Asst Required: No Accompanied by: Self / Same As Patient Allergies codeine (CODEINE) Allergy (Intermediate, Verified 02/24/25 13:39) TACHYCARDIA Medication List - Last Reconciled 02/24/25 by Sara Gonzalez MD baclofen 10 mg PO TID PRN clonazepam 1 mg PO BID PRN 30 days ibuprofen 600 mg PO Q6H PRN sennosides-docusate sodium 8.6-50 mg (Senna Plus) 2 tab-caps (2 x 8.6-50 mg) PO BEDTIME terconazole 0.8% 1 appful vaginal BEDTIME 3 days tramadol 50 mg PO BID PRN 30 days trazodone 50 mg PO BEDTIME PRN Tobacco use date assessed: 02/24/25 Dental Screening Dental Screen Date: 10/22/24 HPI HPI Comments History of Present Illness Details The patient is a 39-year-old female presenting with a headache and follow-up on laboratory findings. The patient experienced a headache severe enough to warrant an emergency visit, where she was diagnosed with an acute tension-type headache. The headache has since resolved, and no further symptoms were reported. Laboratory tests revealed iron deficiency anemia, with a hemoglobin level of 10.4 g/dL, previously noted to be 11.3 g/dL. The mean corpuscular volume (MCV) was 79.2 fL, indicating microcytic anemia. The patient was advised to take iron supplements with vitamin C to enhance absorption. The potassium level was slightly low at 3.2 mmol/L, with dietary recommendations to consume bananas to address this. The patient has a history of anxiety and mild depression, with a PHQ-9 score of 5 indicating mild depression. She is not currently on medication for depression and has expressed a preference to avoid pharmacotherapy. The patient has lumbar degenerative disc disease and is aware of the potential for addiction and sedation with tramadol use, having signed a pain management contract. FOR[facility]LY [facility] Medical History Fibrocystic breast Blurry vision Family history of gastric cancer Physical exam Mild recurrent major depression Periumbilical mass COVID-19 Anxiety Polyarthralgia History of asthma History of depression History of panic attacks Hx of anxiety disorder Surgical History Ganglion cyst of dorsum of left wrist Periumbilical hernia Hx of section Family History Maternal Aunt History of breast cancer Sister Stomach cancer, Onset Age: 34 Father No problems noted. Mother No problems noted. 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 1. Little interest or pleasure in doing things: several days 2. Feeling down, depressed, or hopeless: several days 3. Trouble falling or staying asleep, or sleeping too much: several days 4. Feeling tired or having little energy: several days 5. Poor appetite or overeating: several days 6. Feeling bad about yourself - or that you are a failure or have let yourself or your family down: not at all 7. Trouble concentrating on things, such as reading the newspaper or watching television: not at all 8. Moving or speaking so slowly that other people could have noticed. Or the opposite - being so fidgety or restless that you have been moving around a lot more than usual: not at all 9. Thoughts that you would be better off or of hurting yourself in some way: not at all Total score: 5 Depression Screening Interpretation: Positive Depression Screening Follow-up: Existing condition and Follow-up Visit Requested Depression Screening Done: Yes 21542 - PHQ-9 Billing: Yes Source: Developed by Drs. Freddy Simental, Tiff Bullock, Nolan Chaney and colleagues, with an educational kaci from [employer]. Thrive Questionnaire Date Thrive assessed: 10/22/24 I am a: Patient What is your living situation today?: I have a steady place to live Within the past 12 months, did the food you bought not last and you didn't have the money to get more?: Never true Within the past 12 months, did you worry whether your food would run out before you got money to buy more?: Never true Do you have trouble paying for medicines?: No Do you have trouble getting transportation to medical appointments?: No Do you have trouble paying your heating and electricity bill?: No Do you have trouble taking care of your child, family member or friend?: No Do you have trouble with day-to-day activities such as bathing, preparing meals, shopping, managing finances, etc.?: No Are you currently unemployed and looking for a job?: No Are you interested in more education?: Yes Please select the resources that you would like help with: Housing/Mcfp Currently or been in a relationship where the following occur: No concerns reported THRIVE Score: 0 AUDIT C Alcohol Use Questionnaire (AUDIT-C) 1. How often do you have a drink containing alcohol?: Monthly or less 2. How many drinks containing alcohol do you have on a typical day when you are drinking?: 3 or 4 3. How often do you have six or more drinks on one occasion?: Less than monthly Total Score: 3 Score Reviewed/Action Taken: No SINDHU-7 AMB Questionnaire SINDHU-7 Date SINDHU - 7 assessed: 02/24/25 Feeling nervous, anxious, or on edge: 1 = Several days Not being able to stop or control worryin = Several days Worrying too much about different things: 1 = Several days Trouble relaxin = Several days Being so restless that it is hard to sit still: 1 = Several days Becoming easily annoyed or irritable: 1 = Several days Feeling afraid as if something awful might happen: 1 = Several days Total SINDHU-7 score (0-4 normal; 5-9 mild; 10-14 moderate; 15-21 severe): 7 Source: Developed by Drs. Freddy Simental, Tiff Bullock, Nolan Chaney and colleagues, with an educational kaci from [employer]. SINDHU-7 Assessment Billing SINDHU-7 Assessment Tool: SINDHU-7 Assessment 22832 Review of Systems Const All systems reviewed & are unremarkable except as noted in HPI and below Card Denies chest pain at rest, Denies chest pain with activity, Denies edema, Denies irregular heart rhythm, Denies claudication, Denies dyspnea, Denies dyspnea on exertion, Denies orthopnea, Denies paroxysmal nocturnal dyspnea and Denies slow heart rate Resp Denies cough, Denies dyspnea and Denies dyspnea on exertion GI Denies abdominal pain, Denies change in bowel habits, Denies excessive flatus, Denies nausea and Denies vomiting Denies urinary incontinence, Denies urinary hesitancy and Denies urinary urgency Physical exam (Primary Care) Vital Signs: Last Vital Signs BP 112/82 02/24/25 13:28 BMI result Body Mass Index 27.8 Tobacco/Smoking Status: Tobacco use Status Tobacco use date assessed 02/24/25 02/24/25 13:36 Patient Tobacco Use Status Former Tobacco user 02/24/25 13:32 Tobacco use type Cigarette 02/24/25 13:32 e-Cigarette/Vaping Use Never Used 02/24/25 13:32 PHQ-9: PHQ-9 Score PHQ-9: Total score 5 02/24/25 13:32 Depression Screening Interpretation: Positive Depression Screening Follow-up: Existing condition and Follow-up Visit Requested Thrive Assessment: Date of Thrive Assessment Date Thrive assessed 10/22/24 02/24/25 13:32 Currently or been in a relationship where the following occur: No concerns reported Resp Effort & Inspection: normal respiratory effort Auscultation: clear to auscultation bilaterally Cardio Jugular venous distension: no JVD Rate: regular rate Rhythm: regular rhythm Heart sounds: S1 normal heart sound present and S2 normal heart sound present Extrem General: Yes full ROM Coding Level of Care Code Est Pt Level 4 (33110) Complex EM visit Add On G2211 Diagnoses Mild recurrent major depression F33.0 Anxiety F41.9 Constipation K59.00 Anemia D64.9 Degeneration of intervertebral disc of lumbar region with discogenic back pain M51.360 Disc-related pain type: discogenic back pain only Additional Codes PHQ-9 - 70414 - PHQ-9 Billing: Yes ([id number]) SINDHU-7 Assessment Billing - SINDHU-7 Assessment Tool: SINDHU-7 Assessment 75490 ([id number]) Time Spent (min) 23 Assessment & Plan Assessment & Plan (1) Mild recurrent major depression: Code(s): F33.0 - Major depressive disorder, recurrent, mild Category: Medical (2) Anxiety: Code(s): F41.9 - Anxiety disorder, unspecified Category: Medical (3) Constipation: Code(s): K59.00 - Constipation, unspecified Category: Medical (4) Anemia: Code(s): D64.9 - Anemia, unspecified Category: Medical (5) Lumbar degenerative disc disease: Comment: Pain management contract signed 06/20/2024. Urine toxicology done 06/20/2024 Code(s): M51.369 - Other intervertebral disc degeneration, lumbar region without mention of lumbar back pain or lower extremity pain Category: Medical Qualifiers: Disc-related pain type: discogenic back pain only Qualified Code(s): M51.360 - Other intervertebral disc degeneration, lumbar region with discogenic back pain only Plan The patient will be prescribed iron supplements to address the iron deficiency anemia, with instructions to take them with vitamin C to improve absorption. Dietary modifications include the consumption of bananas to correct the mild hypokalemia. For the management of anxiety and mild depression, the patient is not currently on medication and prefers to avoid pharmacotherapy. Regular follow-up is advised to monitor mental health status. The patient has signed a pain management contract due to the use of tramadol for lumbar degenerative disc disease, acknowledging the risks of addiction and sedation. A follow-up appointment is scheduled in six months to reassess laboratory values and overall health status. Patient was informed and verbally consented to the use of an ambient scribe for clinic note documentation during this visit. Orders: Orders MM tomosynthesis screening BI Today Z12.31 - Encounter for screening mammogram for malignant neoplasm of breast Medications: Changed From baclofen 10 mg PO TID PRN Pain To baclofen 10 mg PO TID PRN 90 tabs 0RF Pain 30 days Refilled clonazepam 1 mg PO BID PRN 60 tabs 0RF anxiety 30 days ibuprofen 600 mg PO Q6H PRN 30 tabs 0RF pain tramadol 50 mg PO BID PRN 60 tabs 0RF pain 30 days M25.50 - Pain in unspecified joint sennosides-docusate sodium 8.6-50 mg (Senna Plus) 2 tab-caps (2 x 8.6-50 mg) PO BEDTIME 60 tabs 1RF K59.00 - Constipation, unspecified terconazole 0.8% 1 appful vaginal BEDTIME 20 grams 0RF 3 days trazodone 50 mg PO BEDTIME PRN 30 tabs 1RF sleep G47.00 - Insomnia, unspecified
[2025-02-24 13:28] VITALS: BP 112/82; BMI 27.8
--- OUTSIDE RECORDS SUMMARY | 2025-02-24 13:46 | XMS_ITS | Clinical Summary ---
Author Organization [employer] Address [address] [place] [address] Care Team Providers Care Vineyardist Name Role Phone Unavailable Primary Care Provider [...] Date Last Done Comments Depression Screening 1984 Disability Screening 1984 Alcohol/Substance Use Screening 1996 Tobacco Screening 1996 Family Planning (PISQ) 11/19/1999 Hepatitis B Vaccines (1 of 3 - 19+ 3-dose series) 11/19/2003 Pap Smear 2005 Cervical Cancer Screening 2014 HPV/Cotest 2014 DTaP/Tdap/Td Vaccines (2 - T d or Tdap) 10/15/2023 10/15/2013, 12/18/2006 COVID-19 Vaccine ( - 2023-2 5 season) 2024 Mammogram 2024 Influenza Vaccine (#1) 2025 7, 06/25/2015 Zoster Vaccines (1 of 2) [...] patient's age to complete this topic Meningococcal B Vaccine Aged Out No l onger eligible based on patient's age to complete this topic Meningococcal Vaccine Aged Out No jakob geronimo eligible based on patient's age to complete this topic Pneumococcal Vaccine: Pediatrics (0 to 5 Years) and At-Risk Patients (6 to 49) Years Aged Out No longer eligible b ased on patient's age to complete this topic RSV under 20 months Aged Out No longe r eligible based on patient's age to complete this topic Rotavirus Vaccines Aged Out No longer eligible based on patient's age to complete this topic
== END 2025-02-24 13:51 | disposition home or self-care (01) ==
LOC: HO.HMCH 13:22
PROVIDERS: PCP Internal Medicine; Visit Provider Internal Medicine
DX: F33.0 Major depressive disorder, recurrent, mild (principal); F41.9 Anxiety disorder, unspecified; K59.00 Constipation, unspecified; D64.9 Anemia, unspecified; M51.360 Other intervertebral disc degeneration, lumbar region with discogenic back pain only

== ENCOUNTER → 2025-02-24 13:21 | Outpatient (BNVA) | payer OTHER, SELFPAY | PROVIDERS: PCP Internal Medicine; Visit Provider Internal Medicine | DX: F33.0 Major depressive disorder, recurrent, mild (principal); F41.9 Anxiety disorder, unspecified; K59.00 Constipation, unspecified; D64.9 Anemia, unspecified; M51.360 Other intervertebral disc degeneration, lumbar region with discogenic back pain only | CPT/HCPCS: 96127; 99212 ==

== ENCOUNTER 2025-06-05 01:18 | Emergency (ER) | payer OTHER, SELFPAY ==
[2025-06-05 01:35] VITALS: BP 137/74; PULSE 79; RESP 18; TEMP 36.5; O2SAT 98; BMI 28.0
[2025-06-05 02:17] LABS: IDNOW Serial# 6674DD1D; Strep A Nucleic Acid Negative (Negative)
[2025-06-05 02:39] LABS: Resp Syncy Virus RNA Qual PCR NEGATIVE (Negative); SARS COV2 PCR INHOUSE NEGATIVE (Negative)
--- NOTE | 2025-06-05 02:47 | ED.URI ---
HPI - URI/Sore Throat General Chief Complaint: Upper Respiratory Symptoms Stated Complaint: throat pain Time Seen by Provider: 06/05/25 02:45 Source: patient Mode of arrival: ambulatory Limitations: language barrier ([employer] services utilized) History of Present Illness ED Provider: Peter MULLEN HPI Narrative: The patient is a 39-year-old female presenting to the ED reporting for the past week she has been experiencing viral URI symptoms consisting of rhinorrhea, sinus congestion, chest congestion, and a painful cough intermittently productive of whitish sputum. The patient denies associated objective fever, hemoptysis, pleurisy, chest pain at rest, abdominal pain, nausea, vomiting, diarrhea, recent sick contacts, or recent trauma. The patient reports she has been taking ibuprofen 400 mg every 8 hours. Related Data Previous Rx's ?Medication ?Instructions ?Recorded ferrous sulfate 325 mg (65 mg 325 mg PO DAILY 90 days #90 tabs 02/24/25 iron) tablet ibuprofen 600 mg tablet 600 mg PO Q6H PRN pain #30 tabs 02/24/25 sennosides 8.6 mg-docusate sodium 2 tab-cap (2 x 8.6-50 mg) PO 02/24/25 50 mg tablet (Senna Plus) BEDTIME #60 tabs terconazole 0.8 % vaginal cream 1 appful vaginal BEDTIME 3 days 02/24/25 #20 grams trazodone 50 mg tablet 50 mg PO BEDTIME PRN sleep #30 tabs 02/24/25 baclofen 10 mg tablet 10 mg PO TID PRN Pain 30 days #90 03/25/25 tabs clonazepam 1 mg tablet 1 mg PO BID PRN anxiety 30 days 05/15/25 #60 tabs tramadol 50 mg tablet 50 mg PO BID PRN pain 30 days #60 05/15/25 tabs acetaminophen 500 mg capsule 1,000 mg (2 x 500 mg) PO .q8 PRN 06/05/25 fever or pain #30 caps benzonatate 100 mg capsule 100 mg PO TID PRN cough #10 caps 06/05/25 ibuprofen 600 mg tablet 600 mg PO Q8H PRN fever or pain 06/05/25 #30 tabs Allergies Allergy/AdvReac Type Severity Reaction Status Date / Time codeine (CODEINE) Allergy Intermediate TACHYCARDIA Verified 06/05/25 01:37 Review of Systems Review of Systems: Yes all other systems are reviewed and are negative PMFSH Past Medical History Medical History Fibrocystic breast Blurry vision Family history of gastric cancer Physical exam Mild recurrent major depression Periumbilical mass COVID-19 Anxiety Polyarthralgia History of asthma History of depression History of panic attacks Hx of anxiety disorder Surgical History Ganglion cyst of dorsum of left wrist Periumbilical hernia Hx of section Family History Family History Maternal Aunt History of breast cancer Sister Stomach cancer, Onset Age: 34 Father No problems noted. Mother No problems noted. 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 Vital signs as documented. HEAD: Atraumatic, normocephalic. EYES: EOMs grossly intact, pupils equal, conjunctiva clear, no exudate. ENT: Nares patent, no discharge. Airway patent, no audible stridor, visible mucosa is pink and moist without noted lesions. Posterior pharynx shows no tonsillar or peritonsillar swelling, no tonsillar exudate, uvula is midline and nonedematous. No trismus. NECK: Trachea is midline, no obvious masses or gross abnormalities. No cervical anterior lymphadenopathy. CHEST: Symmetric movement, normal appearance. LUNGS: LS present and CTAB, no w/r/r. Non-labored work of breathing. CARDIAC: Regular Rhythm, S1/S2 appreciated, no murmurs, rubs or gallops. ABDOMEN: Abdomen soft and non-tender x4 quadrants, no palpable masses or organomegaly. : Deferred. EXTREMITIES: Normal tone, moves all extremities spontaneously without reported pain. No obvious acute injury or deformity noted. NEURO: Alert and oriented x3, CN II-XII appear grossly intact. Cerebellar Functioning grossly intact. No obvious sensory or motor deficits. Speech clear and appropriate. PSYCH: normal affect, appropriate eye contact, fluid speech, with appropriate response to questioning. No reported suicidality or homicidality. SKIN: Warm, dry, color appropriate, normal turgor. No rashes noted. Medications Administered Discontinued Medications Generic Name Dose Route Start Last Admin Trade Name Freq PRN Reason Stop Dose Admin Acetaminophen 975 mg 06/05/25 03:27 06/05/25 03:35 Acetaminophen 325 Mg Tablet PO 06/05/25 03:28 975 mg ONCE ONE Administration Benzonatate 100 mg 06/05/25 03:27 06/05/25 03:36 Benzonatate 100 Mg Capsule PO 06/05/25 03:28 100 mg ONCE ONE Administration Ibuprofen 600 mg 06/05/25 03:27 06/05/25 03:35 Ibuprofen 600 Mg Tablet PO 06/05/25 03:28 600 mg ONCE ONE Administration Medical Decision Making Medical Decision Making [facility] Narrative: 3:49 AM 06/05/2025 (Afshin MULLEN): The patient is a 39-year-old female presenting to the ED reporting for the past week she has been experiencing viral URI symptoms consisting of rhinorrhea, sinus congestion, chest congestion, and a painful cough intermittently productive of whitish sputum. The patient denies associated objective fever, hemoptysis, pleurisy, chest pain at rest, abdominal pain, nausea, vomiting, diarrhea, recent sick contacts, or recent trauma. The patient reports she has been taking ibuprofen 400 mg every 8 hours. In the ED patient is well-appearing, afebrile, without hypoxia or tachycardia. Posterior pharynx shows no swelling or exudate, no cervical lymphadenopathy, lung sounds clear to auscultation bilaterally. The patient's laboratory evaluation is negative for COVID, influenza, RSV, and strep throat. Patient meets 0/4 Centor criteria. Patient is likely suffering from a viral URI. Patient will be treated with Tylenol, ibuprofen, and Tessalon Perles. Patient will be discharged with the same regimen and supportive care. Admission/Observation Consideration of admission/observation: Escalation of care including admission/observation considered Lab Data MDM Lab Attestation statement: I reviewed the patient's lab results. Labs: Lab Results 06/05/25 Range/Units 01:55 Influenza Type A (PCR) NEGATIVE (Negative) Influenza Type B (PCR) NEGATIVE (Negative) RSV RNA Qual (PCR) NEGATIVE (Negative) SARS-CoV-2 RNA (RT-PCR) NEGATIVE (Negative) S. pyogenes GrpA EVY Negative (Negative) Discharge Plan Discharge Clinical Impression: Upper respiratory infection Patient Disposition: Home, Self-Care Instructions: Upper Respiratory Infection (ED), Viral Syndrome (ED) Additional Instructions: Lola por elegir el [facility] M?dico [facility] para mena atenci?n m?dica hoy. Afortunadamente, bindu pruebas y ex?menes de hoy fueron tranquilizadores. Bindu pruebas de influenza, COVID-19, VSR y faringitis estreptoc?cica dieron negativo. En eliazar momento, no hay indicaci?n de ingreso hospitalario ni de observaci?n continua en urgencias, y es seguro darle de melyssa. Es probable que bindu s?ntomas se deban a anthony infecci?n viral de las v?as respiratorias superiores. Mant?ngase ilsa hidratado y descanse lo suficiente. Debe demetrius dosis alternas (escalonadas) de ibuprofeno 600 mg y Tylenol 1000 mg cada 4 horas, seg?n sea necesario, para cualquier dolor adicional. Puede demetrius Tessalon Perles seg?n lo prescrito para la tos. Consulte con mena m?dico de cabecera para anthony reevaluaci?n, un manejo adicional de bindu s?ntomas y atenci?n preventiva continua. Si no tiene un m?dico de cabecera, llame al [facility] al [phone] para establecer remberto nuevo. Mientras espera a que le asignen un nuevo m?dico de cabecera, puede llamar a nuestra Cl?naty de Atenci?n sin [facility] al [phone] para necesidades que no nely de emergencia. Por favor, regrese a urgencias si presenta un cambio repentino o grave en bindu s?ntomas, fiebre superior a 38 ?C que no mejora con Tylenol o ibuprofeno, v?mitos recurrentes o cualquier otro s?ntoma o inquietud nuevo o que empeore. Thank you for choosing [facility] for your care today. Thankfully your testing and exam today was reassuring. You tested negative for influenza, COVID, RSV, and strep throat. At this time there is no indication for admission to the hospital or continued ED observation, and it is safe to discharge you home. Your symptoms are likely due to a viral upper respiratory infection. Please stay well hydrated and get plenty of rest. You should take alternating (staggered) doses of ibuprofen 600mg and Tylenol 1000mg every 4 hours as needed for any additional pain. You may take Tessalon Perles as prescribed as needed for cough. Please follow up with your primary care physician for re-evaluation, additional management of your symptoms, and continued preventative care. If you do not have a primary care physician, please call the [facility] at [phone] to establish a new primary care physician. While waiting to establish your new primary care physician, you can call our Walk-in Care [facility] at [phone] for non-emergency needs. Please return to the emergency department if you develop a severe or sudden change in your symptoms, a fever over 100.4 that does not improve with Tylenol or Ibuprofen, recurrent vomiting, or any other new or worsening symptoms or concerns. Prescriptions: New ibuprofen 600 mg tablet 600 mg PO Q8H PRN (Reason: fever or pain) Qty: 30 0RF acetaminophen 500 mg capsule 1,000 mg PO .q8 PRN (Reason: fever or pain) Qty: 30 0RF benzonatate 100 mg capsule 100 mg PO TID PRN (Reason: cough) Qty: 10 0RF No Action baclofen 10 mg tablet 10 mg PO TID PRN (Reason: Pain) 30 Days Qty: 90 0RF clonazepam 1 mg tablet 1 mg PO BID PRN (Reason: anxiety) 30 Days Qty: 60 0RF tramadol 50 mg tablet 50 mg PO BID PRN (Reason: pain) 30 Days Qty: 60 0RF terconazole 0.8 % cream 1 appful vaginal BEDTIME 3 Days Qty: 20 0RF trazodone 50 mg tablet 50 mg PO BEDTIME PRN (Reason: sleep) Qty: 30 1RF ferrous sulfate 325 mg (65 mg iron) tablet 325 mg PO DAILY 90 Days Qty: 90 1RF sennosides-docusate sodium [Senna Plus] 8.6-50 mg tablet 2 tab-cap PO BEDTIME Qty: 60 1RF ibuprofen 600 mg tablet 600 mg PO Q6H PRN (Reason: pain) Qty: 30 0RF Referrals: Sara Stover MD [Primary Care Provider, Internal Medicine] Clinical Impression: Upper respiratory infection Print Language: Occitan
[2025-06-05 03:15] VITALS: O2SAT 98
--- NOTE | 2025-06-05 03:37 | PC.NURSE ---
pt medicated per mar.
[2025-06-05 03:40] VITALS: O2SAT 98
--- NOTE | 2025-06-05 03:41 | PC.NURSE ---
medicated pt per mar.
--- NOTE | 2025-06-05 03:59 | PC.NURSE ---
reviewed discharge instructions with pt, pt verbalized understanding.
[2025-06-05 04:01] VITALS: BP 125/60; PULSE 60; RESP 20; TEMP 36.1; O2SAT 98
== END 2025-06-05 04:03 | disposition home or self-care (01) ==
PROVIDERS: Emergency Provider Emergency Medicine; PCP Internal Medicine
DX: J06.9 Acute upper respiratory infection, unspecified (principal); B34.9 Viral infection, unspecified
CPT/HCPCS: 87637; 87651; 99283; 99284